=== PATIENT | male | born 1945 | race Hispanic/Latino ===

== ENCOUNTER 2017-03-26 06:35 | Inpatient (IN) | payer OTHER, MEDICARE ==
[~2017-03-26] VITALS: Ht 180.3 cm; Wt 90.7 kg
[~2017-03-26 06:35] MED LIST: ASPI-1005 PO; ATOR40TA69 PO; CLOP75TA14 PO; FURO20TA6 PO; GLIP5TAB11 PO; GLYB-226 PO; LEVO100T12 PO; LISI2.5T2 PO; METF500T6 PO; METO25TA6 PO; NIAC500T76 PO; PRAS10TA6 PO; SIMV80TA2 PO; SPIR25TA PO
[2017-03-26] MEDS ORDERED: FUROSEMIDE 10 MG/ML 4ML VIAL ONE (06:37)
[2017-03-26] MEDS ORDERED: NITROGLYCERIN 0.4 MG SL TAB SL ONE (06:38)
[2017-03-26] MEDS ORDERED: IPRATROPIUM/ALBUTEROL SULFATE 3 ML SOLUTION IH ONE ×4 (06:44→23:08)
[2017-03-26] MEDS ORDERED: METOPROLOL TARTRATE 1 MG/ML 5ML VIAL IV ONE (06:49)
[2017-03-26 06:52] LABS: BASOPHILS % (AUTO) 0.7 % (0.0-5.0); HEMATOCRIT 44.5 % (42-54); LYMPHOCYTES % (AUTO) 52.4 % (21.0-51.0); MEAN CORPUSCULAR HEMOGLOBIN 32.7 pg (27.0-33.0); MEAN CORPUSCULAR HGB CONC 32.7 g/dL (32.0-36.0); MONOCYTES % (AUTO) 7.1 % (3.0-13.0); NEUTROPHILS % (AUTO) 32.8 % (40.0-77.0); PLATELET COUNT (AUTO) 260 K/uL (130-400); RED BLOOD CELL COUNT(AUTO) 4.45 MIL/uL (4.50-6.20); WHITE BLOOD COUNT (AUTO) 20.4 K/uL (4.8-10.8)
[2017-03-26] MEDS ORDERED: ASPIRIN 325 MG TABLET ONE (06:58)
[2017-03-26 07:04] LABS: CREATININE 1.4 mg/dL (0.5-1.5); POTASSIUM 4.5 mmol/L (3.5-5.1)
[2017-03-26 07:06] LABS: INR 0.97 (0.85-1.15); PARTIAL THROMBOPLASTIN TIME 26.2 SEC (26.3-35.5); PROTHROMBIN TIME 10.2 SEC (9.6-11.6)
[2017-03-26 07:22] LABS: ALBUMIN 3.7 g/dL (3.5-5.0); BILIRUBIN,TOTAL 0.5 mg/dL (0.2-1.0); TOTAL PROTEIN, SERUM 7.6 g/dL (6.0-8.3)
[2017-03-26 07:23] LABS: B-TYPE NATRIURETIC PEPTIDE 461 pg/mL (0-100)
[2017-03-26] MEDS ORDERED: CEFTRIAXONE SODIUM 1 GM ONE (07:38)
[2017-03-26] MEDS ORDERED: SODIUM CHLORIDE 0.9% 1000ML 1,000 ML IV ONE (08:53)
[2017-03-26] MEDS ORDERED: LACTULOSE 20 GM/30 ML UDCUP PO PRN (09:00)
[2017-03-26] MEDS: AZITHROMYCIN 500MG+NS 250ML 250 ML IV SCH (09:00)
[2017-03-26] MEDS ORDERED: ONDANSETRON HCL 4 MG/2 ML VIAL IV PRN (09:00)
[2017-03-26] MEDS ORDERED: GUAIFENESIN-DM 200/20 MG 10 ML PO PRN (09:00)
[2017-03-26] MEDS ORDERED: ACETAMINOPHEN 325 MG TAB PO PRN ×2 (09:00)
[2017-03-26] MEDS ORDERED: CEFTRIAXONE 1GM/D5W 50ML 50 ML IV SCH (09:00)
[2017-03-26] MEDS ORDERED: MAG HYDROX/AL HYDROX/SIMETH ES 30 ML SUSP UDCUP PO PRN (09:00)
[2017-03-26] MEDS ORDERED: PANTOPRAZOLE 40 MG/VIAL IVP SCH (09:00)
[2017-03-26 09:52] LABS: APPEARANCE,URINE Clear (CLEAR); BILIRUBIN,URINE Negative (NEGATIVE); COLOR,URINE Yellow (YELLOW); GLUCOSE, URINE (UA) Negative (NEGATIVE); KETONES,URINE Negative (NEGATIVE); LEUKOCYTE ESTERASE ,URINE Negative (NEGATIVE); NITRATE,URINE Negative (NEGATIVE); OCCULT BLOOD,URINE Negative (NEGATIVE); PROTEIN,URINE POS 1+ (NEGATIVE); UROBILINOGEN,URINE 0.2 mg/dL (0.2-1.0)
[2017-03-26 09:55] LABS: BACTERIA,URINE Rare /HPF (None Seen); RBC,URINE 0-1 /HPF (0-1); SQUAMOUS EPITHELIAL CELL,UR Rare /LPF (0-2); WBC,URINE 0-1 /HPF (0-1)
[2017-03-26] MEDS ORDERED: AZITHROMYCIN 500MG+NS 250ML 250 ML IV ONE (10:17)
[2017-03-26] MEDS ORDERED: FUROSEMIDE 10 MG/ML 2ML VIAL IV SCH (11:00)
[2017-03-26] MEDS: IPRATROPIUM/ALBUTEROL SULFATE 3 ML SOLUTION IH SCH ×2 (11:39→18:00)
[2017-03-26] MEDS ORDERED: FUROSEMIDE 10 MG/ML 2ML VIAL ONE (19:11)
[2017-03-26] MEDS ORDERED: ACETAMINOPHEN 325 MG TAB ONE (22:42)
[2017-03-27] VITALS (7 sets, daily range): BP systolic 101–139; BP diastolic 53–66
[2017-03-27] MEDS ORDERED: MORPHINE SULFATE 2 MG/ML 1ML SYG ONE (02:09)
[2017-03-27] MEDS: MORPHINE SULFATE 2 MG/ML 1ML SYG IVP PRN ×2 (02:17→11:50)
[2017-03-27 03:53] LABS: HEMATOCRIT 34.7 % (42-54); MEAN CORPUSCULAR HEMOGLOBIN 33.5 pg (27.0-33.0); MEAN CORPUSCULAR HGB CONC 33.9 g/dL (32.0-36.0); MEAN CORPUSCULAR VOLUME 98.7 fL (79-99); NUCLEATED RED BLOOD CELLS 0.1 % (0.0-0.19); PLATELET COUNT (AUTO) 188 K/uL (130-400); RED BLOOD CELL COUNT(AUTO) 3.52 MIL/uL (4.50-6.20); RED CELL DISTRIBUTION WIDTH 14.4 % (11.0-15.5); WHITE BLOOD COUNT (AUTO) 10.5 K/uL (4.8-10.8)
[2017-03-27 03:59] LABS: CREATININE 1.3 mg/dL (0.5-1.5); POTASSIUM 3.7 mmol/L (3.5-5.1)
[2017-03-27 04:05] LABS: B-TYPE NATRIURETIC PEPTIDE 339 pg/mL (0-100)
[2017-03-27] MEDS: INSULIN HUMULIN R 100 UNIT/ML 3ML SQ SCH ×4 (06:12→21:41)
[2017-03-27] MEDS: IPRATROPIUM/ALBUTEROL SULFATE 3 ML SOLUTION IH SCH ×4 (06:19→18:12)
[2017-03-27] MEDS: CEFTRIAXONE SODIUM 1 GM IVP SCH (08:33)
[2017-03-27] MEDS ORDERED: MORPHINE SULFATE 4 MG/1ML SYG IVP PRN (10:00)
[2017-03-27] MEDS ORDERED: KETOROLAC TROMETHAMINE 15MG/ML IV PRN (10:00)
[2017-03-27] MEDS ORDERED: MORPHINE SULFATE 2 MG/ML 1ML SYG IVP PRN (10:00)
[2017-03-27] MEDS: PREGABALIN 75 MG CAPSULE PO SCH ×2 (11:49→21:39)
[2017-03-27] MEDS: AZITHROMYCIN 500MG+NS 250ML 250 ML IV SCH (11:50)
[2017-03-27] MEDS: FUROSEMIDE 10 MG/ML 4ML VIAL IV SCH (19:39)
[2017-03-27] MEDS: MUPIROCIN OINTMENT 22 GM TUBE TP SCH (21:34)
[2017-03-27] MEDS: LIDOCAINE HCL 5% OINT 36GM TUBE TP SCH (21:35)
[2017-03-27] MEDS: METOPROLOL TARTRATE 25 MG TAB PO SCH (21:39)
[2017-03-27] MEDS: ATORVASTATIN CALCIUM 40 MG TABLET PO SCH (21:39)
[2017-03-27] MEDS: FAMOTIDINE 20MG TAB 20 MG TAB PO SCH (21:39)
[2017-03-27] MEDS: IPRATROPIUM 0.5 MG/2.5 ML INH IH SCH (23:46)
[2017-03-28] MEDS: FUROSEMIDE 10 MG/ML 4ML VIAL IV SCH ×2 (03:01→09:28)
[2017-03-28 04:03] VITALS: BP 122/58
[2017-03-28 04:49] LABS: HEMATOCRIT 36.9 % (42-54); MEAN CORPUSCULAR HEMOGLOBIN 32.8 pg (27.0-33.0); MEAN CORPUSCULAR HGB CONC 33.8 g/dL (32.0-36.0); MEAN CORPUSCULAR VOLUME 96.8 fL (79-99); PLATELET COUNT (AUTO) 209 K/uL (130-400); RED BLOOD CELL COUNT(AUTO) 3.81 MIL/uL (4.50-6.20); RED CELL DISTRIBUTION WIDTH 14.4 % (11.0-15.5); WHITE BLOOD COUNT (AUTO) 9.4 K/uL (4.8-10.8)
[2017-03-28 05:04] LABS: B-TYPE NATRIURETIC PEPTIDE 342 pg/mL (0-100); CREATININE 1.3 mg/dL (0.5-1.5)
[2017-03-28 05:21] LABS: BAND NEUTROPHILS % (MANUAL) 9 % (0-2); EOSINOPHILS % (MANUAL) 4 % (1-6); LYMPHOCYTES % (MANUAL) 40 % (22-44); MONOCYTES % (MANUAL) 4 % (2-9); SEGMENTED NEUTROPHILS % 43 % (40-70)
[2017-03-28 05:22] LABS: MAN.DIFF COMMENT-IMPRESSION MANUAL DIFFERENTIAL; PLATELET MORPHOLOGY COMMENT ADEQUATE
[2017-03-28] MEDS: LEVOTHYROXINE 100 MCG TABLET PO SCH (06:07)
[2017-03-28] MEDS: INSULIN HUMULIN R 100 UNIT/ML 3ML SQ SCH ×4 (06:08→21:00)
[2017-03-28] MEDS: IPRATROPIUM 0.5 MG/2.5 ML INH IH SCH ×3 (06:20→19:29)
[2017-03-28 07:50] VITALS: BP 116/63
[2017-03-28] MEDS ORDERED: FUROSEMIDE 40 MG TABLET PO SCH (09:00)
[2017-03-28] MEDS ORDERED: LEVOFLOXACIN 500 MG/D5W 100 ML 100 ML IV SCH (09:00)
[2017-03-28] MEDS: CLOPIDOGREL BISULFATE 75 MG TAB PO SCH (09:27)
[2017-03-28] MEDS: SPIRONOLACTONE 25 MG TAB PO SCH (09:27)
[2017-03-28] MEDS: ASPIRIN 81MG TAB.CHEW PO SCH (09:27)
[2017-03-28] MEDS: PREGABALIN 75 MG CAPSULE PO SCH ×2 (09:27→23:02)
[2017-03-28] MEDS: METOPROLOL TARTRATE 25 MG TAB PO SCH ×2 (09:27→23:02)
[2017-03-28] MEDS: CEFTRIAXONE SODIUM 1 GM IVP SCH (09:28)
[2017-03-28] MEDS: LISINOPRIL 2.5 MG TABLET PO SCH (09:28)
[2017-03-28] MEDS: ENOXAPARIN SODIUM 30 MG/0.3 ML SQ SCH (09:29)
[2017-03-28 11:45] VITALS: BP 96/53
[2017-03-28] MEDS: LIDOCAINE HCL 5% OINT 36GM TUBE TP SCH (11:47)
[2017-03-28] MEDS: MUPIROCIN OINTMENT 22 GM TUBE TP SCH (11:47)
[2017-03-28 16:12] VITALS: BP 99/53
[2017-03-28] MEDS: FUROSEMIDE 40 MG TABLET PO SCH (16:57)
[2017-03-28 19:41] VITALS: BP 101/54
[2017-03-28] MEDS: ATORVASTATIN CALCIUM 40 MG TABLET PO SCH (23:01)
[2017-03-28] MEDS: FAMOTIDINE 20MG TAB 20 MG TAB PO SCH (23:02)
[2017-03-28 23:43] VITALS: BP 100/49
[2017-03-29] MEDS: IPRATROPIUM 0.5 MG/2.5 ML INH IH SCH ×4 (00:04→19:08)
[2017-03-29] MEDS: MUPIROCIN OINTMENT 22 GM TUBE TP SCH ×2 (00:16→11:23)
[2017-03-29] MEDS: LIDOCAINE HCL 5% OINT 36GM TUBE TP SCH ×2 (00:17→11:23)
[2017-03-29 03:46] VITALS: BP 100/54
[2017-03-29 04:41] LABS: HEMATOCRIT 36.1 % (42-54); MEAN CORPUSCULAR HEMOGLOBIN 33.3 pg (27.0-33.0); MEAN CORPUSCULAR VOLUME 98.1 fL (79-99); PLATELET COUNT (AUTO) 213 K/uL (130-400); RED BLOOD CELL COUNT(AUTO) 3.68 MIL/uL (4.50-6.20); RED CELL DISTRIBUTION WIDTH 14.2 % (11.0-15.5); WHITE BLOOD COUNT (AUTO) 10.1 K/uL (4.8-10.8)
[2017-03-29 04:43] LABS: CREATININE 1.5 mg/dL (0.5-1.5); POTASSIUM 4.4 mmol/L (3.5-5.1)
[2017-03-29] MEDS: INSULIN HUMULIN R 100 UNIT/ML 3ML SQ SCH ×4 (06:24→21:00)
[2017-03-29] MEDS: LEVOTHYROXINE 100 MCG TABLET PO SCH (06:45)
[2017-03-29 07:47] VITALS: BP 115/60
[2017-03-29] MEDS: METOPROLOL TARTRATE 25 MG TAB PO SCH ×2 (09:00→11:22)
[2017-03-29] MEDS: FUROSEMIDE 40 MG TABLET PO SCH ×2 (09:57→16:57)
[2017-03-29] MEDS: SPIRONOLACTONE 25 MG TAB PO SCH (09:57)
[2017-03-29] MEDS: LISINOPRIL 2.5 MG TABLET PO SCH (09:57)
[2017-03-29] MEDS: PREGABALIN 75 MG CAPSULE PO SCH ×2 (09:57→22:43)
[2017-03-29] MEDS: CLOPIDOGREL BISULFATE 75 MG TAB PO SCH (09:57)
[2017-03-29] MEDS: ASPIRIN 81MG TAB.CHEW PO SCH (09:57)
[2017-03-29] MEDS: ENOXAPARIN SODIUM 30 MG/0.3 ML SQ SCH (09:58)
[2017-03-29] MEDS: CEFTRIAXONE SODIUM 1 GM IVP SCH (09:58)
[2017-03-29 11:20] VITALS: BP 157/66
[2017-03-29 16:33] VITALS: BP 111/50
[2017-03-29 19:35] VITALS: BP 98/51
[2017-03-29] MEDS: ATORVASTATIN CALCIUM 40 MG TABLET PO SCH (22:43)
[2017-03-29] MEDS: FAMOTIDINE 20MG TAB 20 MG TAB PO SCH (22:43)
[2017-03-30] MEDS: IPRATROPIUM 0.5 MG/2.5 ML INH IH SCH ×3 (00:25→11:13)
[2017-03-30 00:42] VITALS: BP 109/49
[2017-03-30] MEDS: MUPIROCIN OINTMENT 22 GM TUBE TP SCH ×2 (01:16→09:01)
[2017-03-30] MEDS: LIDOCAINE HCL 5% OINT 36GM TUBE TP SCH ×2 (01:17→09:01)
[2017-03-30] MEDS: METOPROLOL TARTRATE 25 MG TAB PO SCH ×2 (01:18→08:59)
[2017-03-30 04:00] VITALS: BP 97/50
[2017-03-30 05:40] LABS: CREATININE 1.5 mg/dL (0.5-1.5); POTASSIUM 3.7 mmol/L (3.5-5.1)
[2017-03-30] MEDS: LEVOTHYROXINE 100 MCG TABLET PO SCH (06:46)
[2017-03-30] MEDS: INSULIN HUMULIN R 100 UNIT/ML 3ML SQ SCH (07:30)
[2017-03-30 07:51] VITALS: BP 104/50
[2017-03-30] MEDS: LISINOPRIL 2.5 MG TABLET PO SCH (08:59)
[2017-03-30] MEDS: CLOPIDOGREL BISULFATE 75 MG TAB PO SCH (08:59)
[2017-03-30] MEDS: SPIRONOLACTONE 25 MG TAB PO SCH (08:59)
[2017-03-30] MEDS: FUROSEMIDE 40 MG TABLET PO SCH (09:00)
[2017-03-30] MEDS ORDERED: FURO40TA7 PO (09:00)
[2017-03-30] MEDS: ASPIRIN 81MG TAB.CHEW PO SCH (09:00)
[2017-03-30] MEDS ORDERED: AMOX-426 PO (09:00)
[2017-03-30] MEDS: PREGABALIN 75 MG CAPSULE PO SCH (09:00)
[2017-03-30] MEDS: ENOXAPARIN SODIUM 30 MG/0.3 ML SQ SCH (09:00)
[2017-03-30] MEDS ORDERED: PREG50 PO (09:00)
[2017-03-30] MEDS: CEFTRIAXONE SODIUM 1 GM IVP SCH (09:01)
[2017-03-30 11:22] VITALS: BP 142/57
[2017-04-26] MEDS ORDERED: FURO40TA5 PO (14:30)
[2017-04-26] MEDS ORDERED: PREG50 PO (14:30)
[2017-04-26] MEDS ORDERED: ATOR40TA71 PO (14:30)
[2017-04-26] MEDS ORDERED: ASPI-1197 PO (14:30)
[2017-04-26] MEDS ORDERED: SPIR25TA4 PO (14:30)
[2017-04-26] MEDS ORDERED: CLOP75TA32 PO (14:30)
[2017-04-26] MEDS ORDERED: LISI2.5T2 PO (14:30)
[2017-07-07] MEDS ORDERED: LOSA50TA37 PO (10:13)
[2017-07-07] MEDS ORDERED: ACET1TAB12 PO (10:13)
[2017-07-07] MEDS ORDERED: FAMO20TA8 PO (10:13)
[2017-07-07] MEDS ORDERED: SANTO TP (10:13)
[2017-07-07] MEDS ORDERED: ACET-2247 PO (10:13)
[2017-07-07] MEDS ORDERED: LACT10SO9 PO (10:13)
[2017-07-07] MEDS ORDERED: INSU100V3 SQ (10:15)
[2017-07-11] MEDS ORDERED: SPIR25TA4 PO (10:21)
[2017-08-11] MEDS ORDERED: METOPROLOL PO (07:58)
[2017-08-11] MEDS ORDERED: TYL3 PO (08:49)
== END 2017-03-30 13:39 | disposition home or self-care (01) | DRG 291 ==
LOC: EDH 06:35 → EDHIP 08:59 → 2AH 23:29
PROVIDERS: ADMIT Family Medicine; ATTEND Family Medicine
PROC: 5A09357 Assistance with Respiratory Ventilation, Less than 24 Consecutive Hours, Continuous Positive Airway Pressure (ICD-10-PCS; principal; 2017-03-27)
DX: I11.0 Hypertensive heart disease with heart failure (principal); J96.90 Respiratory failure, unspecified, unspecified whether with hypoxia or hypercapnia; L03.119 Cellulitis of unspecified part of limb; J98.11 Atelectasis; E11.51 Type 2 diabetes mellitus with diabetic peripheral angiopathy without gangrene; I50.43 Acute on chronic combined systolic (congestive) and diastolic (congestive) heart failure; E03.9 Hypothyroidism, unspecified; E78.5 Hyperlipidemia, unspecified; J44.9 Chronic obstructive pulmonary disease, unspecified; I25.5 Ischemic cardiomyopathy; I25.10 Atherosclerotic heart disease of native coronary artery without angina pectoris; L97.529 Non-pressure chronic ulcer of other part of left foot with unspecified severity; E11.621 Type 2 diabetes mellitus with foot ulcer; F17.210 Nicotine dependence, cigarettes, uncomplicated; E11.40 Type 2 diabetes mellitus with diabetic neuropathy, unspecified; I25.2 Old myocardial infarction; Z79.84 Long term (current) use of oral hypoglycemic drugs; Z95.1 Presence of aortocoronary bypass graft; Z79.899 Other long term (current) drug therapy
CPT/HCPCS: 36415; 71045; 71046; 71250; 73630; 80048; 80053; 81001; 82550; 82553; 82948; 83605; 83880; 84484; 85025; 85027; 85610; 85730; 87040; 87070; 87804; 93005; 93306; 94640; 94660; 94664; 99291; A4218; C9113; J0456; J0696; J1650; J1815; J1885; J1940; J1956; J3490; J7030

== ENCOUNTER → 2017-04-20 | Outpatient (CLI) | payer OTHER, MEDICARE ==
[~2017-04-20] MED LIST changes: +ACET-2247 PO; +ACET1TAB12 PO; +AMIO400T4 PO; +AMOX-426 PO; +ASPI-1197 PO; +ATOR40TA71 PO; +CLOP75TA32 PO; +FAMO20TA8 PO; +FURO40TA5 PO; +FURO40TA7 PO; -GLYB-226 PO; +HYDR-4060 PO; +INSU100V3 SQ; +LACT10SO9 PO; +LOSA50TA37 PO; +METOPROLOL PO; -NIAC500T76 PO; -PRAS10TA6 PO; +PREG50 PO; +SANTO TP; +SANTYL AUTOSUB TO MEDIHONEY FOR INPT TP ONE; -SIMV80TA2 PO; +SPIR25TA4 PO; +TYL3 PO
[2017-04-20 15:21] VITALS: BP 119/61
== END | disposition home or self-care (01) ==
LOC: WHH 09:10
PROVIDERS: ATTEND Podiatrist Foot & Ankle Surgery
DX: I70.235 Atherosclerosis of native arteries of right leg with ulceration of other part of foot (principal); E11.621 Type 2 diabetes mellitus with foot ulcer; L97.511 Non-pressure chronic ulcer of other part of right foot limited to breakdown of skin; E11.51 Type 2 diabetes mellitus with diabetic peripheral angiopathy without gangrene; I25.10 Atherosclerotic heart disease of native coronary artery without angina pectoris; J44.9 Chronic obstructive pulmonary disease, unspecified; E78.5 Hyperlipidemia, unspecified; I11.0 Hypertensive heart disease with heart failure; I50.43 Acute on chronic combined systolic (congestive) and diastolic (congestive) heart failure; E03.9 Hypothyroidism, unspecified; E11.40 Type 2 diabetes mellitus with diabetic neuropathy, unspecified; I25.2 Old myocardial infarction; F17.210 Nicotine dependence, cigarettes, uncomplicated; Z95.1 Presence of aortocoronary bypass graft
CPT/HCPCS: A4450; G0463; L3260

== ENCOUNTER 2017-04-27 06:55 | Day surgery (SDC) | payer OTHER, MEDICARE ==
[2017-04-26 14:06] VITALS: BP 98/50
[2017-04-26 14:17] LABS: BASOPHILS % (AUTO) 0.5 % (0.0-5.0); EOSINOPHILS % (AUTO) 6.6 % (0.0-8.0); HEMATOCRIT 37.7 % (42-54); LYMPHOCYTES % (AUTO) 26.9 % (21.0-51.0); MEAN CORPUSCULAR HEMOGLOBIN 33.6 pg (27.0-33.0); MEAN CORPUSCULAR HGB CONC 34.5 g/dL (32.0-36.0); MEAN CORPUSCULAR VOLUME 97.4 fL (79-99); MONOCYTES % (AUTO) 9.7 % (3.0-13.0); NEUTROPHILS % (AUTO) 56.3 % (40.0-77.0); PLATELET COUNT (AUTO) 216 K/uL (130-400); RED BLOOD CELL COUNT(AUTO) 3.87 MIL/uL (4.50-6.20); RED CELL DISTRIBUTION WIDTH 13.8 % (11.0-15.5); WHITE BLOOD COUNT (AUTO) 10.2 K/uL (4.8-10.8)
[2017-04-26 14:26] LABS: INR 0.99 (0.85-1.15); PARTIAL THROMBOPLASTIN TIME 26.5 SEC (26.3-35.5); PROTHROMBIN TIME 10.4 SEC (9.6-11.6)
[2017-04-26 14:27] LABS: CREATININE 1.3 mg/dL (0.5-1.5); POTASSIUM 4.4 mmol/L (3.5-5.1)
[~2017-04-27] VITALS: Ht 174 cm; Wt 87.6 kg
[2017-04-27 06:55] VITALS: BP 93/69
[~2017-04-27 06:55] MED LIST changes: -ACET-2247 PO; -ACET1TAB12 PO; -AMIO400T4 PO; -AMOX-426 PO; -ASPI-1005 PO; -ATOR40TA69 PO; +CEFAZOLIN SODIUM 1 GM VIAL IVP SCH; -CLOP75TA14 PO; -FAMO20TA8 PO; -FURO20TA6 PO; -FURO40TA7 PO; -GLIP5TAB11 PO; -HYDR-4060 PO; -INSU100V3 SQ; -LACT10SO9 PO; -LEVO100T12 PO; -LOSA50TA37 PO; -METF500T6 PO; -METOPROLOL PO; -SANTO TP; -SANTYL AUTOSUB TO MEDIHONEY FOR INPT TP ONE; +SODIUM CHLORIDE 0.9% 500ML 500 ML IV SCH; -SPIR25TA PO; -TYL3 PO; +WATER FOR INJECTION,STERILE 20 ML VIAL IJ SCH
[2017-04-27] MEDS ORDERED: SODIUM CHLORIDE 0.9% 1000ML 1,000 ML IV ONE (07:53)
[2017-04-27] MEDS ORDERED: METF500T6 PO (08:00)
[2017-04-27] MEDS ORDERED: ACETAMINOPHEN-CODEINE 300/30MG TAB PO SCH (08:00)
[2017-04-27] MEDS ORDERED: TYL3 PO (09:44)
[2017-07-07] MEDS ORDERED: ACET-2247 PO (10:13)
[2017-07-07] MEDS ORDERED: SANTO TP (10:13)
[2017-07-07] MEDS ORDERED: FAMO20TA8 PO (10:13)
[2017-07-07] MEDS ORDERED: LACT10SO9 PO (10:13)
[2017-07-07] MEDS ORDERED: ACET1TAB12 PO (10:13)
[2017-07-07] MEDS ORDERED: LOSA50TA37 PO (10:13)
[2017-07-07] MEDS ORDERED: INSU100V3 SQ (10:15)
[2017-07-11] MEDS ORDERED: SPIR25TA4 PO (10:21)
[2017-08-11] MEDS ORDERED: METOPROLOL PO (07:58)
[2017-08-11] MEDS ORDERED: TYL3 PO (08:49)
== END 2017-04-27 10:40 | disposition home or self-care (01) ==
LOC: DAH 06:55
PROVIDERS: ATTEND Internal Medicine Cardiovascular Disease
DX: I25.5 Ischemic cardiomyopathy (principal); I25.2 Old myocardial infarction; I25.10 Atherosclerotic heart disease of native coronary artery without angina pectoris; I11.0 Hypertensive heart disease with heart failure; I50.22 Chronic systolic (congestive) heart failure; F17.210 Nicotine dependence, cigarettes, uncomplicated; Z79.82 Long term (current) use of aspirin; Z79.899 Other long term (current) drug therapy; Z79.84 Long term (current) use of oral hypoglycemic drugs; Z53.8 Procedure and treatment not carried out for other reasons; Z95.5 Presence of coronary angioplasty implant and graft
CPT/HCPCS: 36415; 80048; 82948; 85025; 85610; 85730; 93005; J7030

== ENCOUNTER → 2017-05-04 | Outpatient (CLI) | payer OTHER, MEDICARE ==
[~2017-05-04] MED LIST changes: +ACET-2247 PO; +ACET1TAB12 PO; +AMIO400T4 PO; +AMOX-426 PO; +ASPI-1005 PO; +ATOR40TA69 PO; -CEFAZOLIN SODIUM 1 GM VIAL IVP SCH; +FAMO20TA8 PO; +FURO20TA6 PO; +HYDR-4060 PO; +INSU100V3 SQ; +LACT10SO9 PO; +LOSA50TA37 PO; +METF500T6 PO; +METOPROLOL PO; +SANTO TP; -SODIUM CHLORIDE 0.9% 500ML 500 ML IV SCH; +TYL3 PO; -WATER FOR INJECTION,STERILE 20 ML VIAL IJ SCH
[2017-05-04 13:52] VITALS: BP 99/56
== END | disposition home or self-care (01) ==
LOC: WHH 10:30
PROVIDERS: ATTEND Podiatrist Foot & Ankle Surgery
DX: I70.235 Atherosclerosis of native arteries of right leg with ulceration of other part of foot (principal); E11.621 Type 2 diabetes mellitus with foot ulcer; L97.511 Non-pressure chronic ulcer of other part of right foot limited to breakdown of skin; E11.51 Type 2 diabetes mellitus with diabetic peripheral angiopathy without gangrene; I25.10 Atherosclerotic heart disease of native coronary artery without angina pectoris; J44.9 Chronic obstructive pulmonary disease, unspecified; E78.5 Hyperlipidemia, unspecified; I11.0 Hypertensive heart disease with heart failure; I50.43 Acute on chronic combined systolic (congestive) and diastolic (congestive) heart failure; E03.9 Hypothyroidism, unspecified; E11.40 Type 2 diabetes mellitus with diabetic neuropathy, unspecified; I25.2 Old myocardial infarction; F17.210 Nicotine dependence, cigarettes, uncomplicated; Z95.1 Presence of aortocoronary bypass graft
CPT/HCPCS: 82948; A6209; G0463

== ENCOUNTER → 2017-05-05 | Outpatient (CLI) | payer OTHER, MEDICARE | END | disposition home or self-care (01) | LOC: SHCH 13:08 | PROVIDERS: ATTEND Internal Medicine Cardiovascular Disease | DX: I73.9 Peripheral vascular disease, unspecified (principal) | CPT/HCPCS: 93925 ==

== ENCOUNTER → 2017-05-17 | Outpatient (CLI) | payer OTHER, MEDICARE ==
[~2017-05-17] MED LIST changes: +IOPAMIDOL-370 75 ML VIAL IV ONE; +ISOVUE-370 50ML VIAL IV ONE
== END | disposition home or self-care (01) ==
LOC: OIH 08:26
PROVIDERS: ATTEND Internal Medicine Cardiovascular Disease
DX: I70.203 Unspecified atherosclerosis of native arteries of extremities, bilateral legs (principal)
CPT/HCPCS: 75635; Q9967 ×2

== ENCOUNTER → 2017-05-18 | Outpatient (CLI) | payer OTHER, MEDICARE ==
[~2017-05-18] MED LIST changes: -IOPAMIDOL-370 75 ML VIAL IV ONE; -ISOVUE-370 50ML VIAL IV ONE
[2017-05-18 13:31] VITALS: BP 125/54
== END | disposition home or self-care (01) ==
LOC: WHH 10:15
PROVIDERS: ATTEND Podiatrist Foot & Ankle Surgery
DX: I70.235 Atherosclerosis of native arteries of right leg with ulceration of other part of foot (principal); E11.621 Type 2 diabetes mellitus with foot ulcer; L97.511 Non-pressure chronic ulcer of other part of right foot limited to breakdown of skin; E11.51 Type 2 diabetes mellitus with diabetic peripheral angiopathy without gangrene; I25.10 Atherosclerotic heart disease of native coronary artery without angina pectoris; J44.9 Chronic obstructive pulmonary disease, unspecified; E78.5 Hyperlipidemia, unspecified; I11.0 Hypertensive heart disease with heart failure; I50.43 Acute on chronic combined systolic (congestive) and diastolic (congestive) heart failure; E03.9 Hypothyroidism, unspecified; E11.40 Type 2 diabetes mellitus with diabetic neuropathy, unspecified; I25.2 Old myocardial infarction; F17.210 Nicotine dependence, cigarettes, uncomplicated; Z95.1 Presence of aortocoronary bypass graft; Z79.82 Long term (current) use of aspirin; Z95.5 Presence of coronary angioplasty implant and graft
CPT/HCPCS: G0463

== ENCOUNTER 2017-05-26 16:30 | Inpatient (IN) | payer OTHER, MEDICARE ==
[~2017-05-26] VITALS: Ht 177.8 cm; Wt 86.2 kg
[~2017-05-26 16:30] MED LIST changes: -ACET-2247 PO; -ACET1TAB12 PO; -AMIO400T4 PO; -AMOX-426 PO; -ASPI-1005 PO; -ATOR40TA69 PO; -FAMO20TA8 PO; -FURO20TA6 PO; -HYDR-4060 PO; -INSU100V3 SQ; -LACT10SO9 PO; -LOSA50TA37 PO; -METOPROLOL PO; -SANTO TP
[2017-05-26 17:04] LABS: BASOPHILS % (AUTO) 0.4 % (0.0-5.0); EOSINOPHILS % (AUTO) 5.7 % (0.0-8.0); HEMATOCRIT 36.2 % (42-54); MEAN CORPUSCULAR HGB CONC 34.6 g/dL (32.0-36.0); MEAN CORPUSCULAR VOLUME 95.3 fL (79-99); MONOCYTES % (AUTO) 9.4 % (3.0-13.0); NEUTROPHILS % (AUTO) 61.5 % (40.0-77.0); PLATELET COUNT (AUTO) 314 K/uL (130-400); RED CELL DISTRIBUTION WIDTH 13.8 % (11.0-15.5); WHITE BLOOD COUNT (AUTO) 10.2 K/uL (4.8-10.8)
[2017-05-26] MEDS ORDERED: MORPHINE SULFATE 2 MG/ML 1ML SYG ONE (17:16)
[2017-05-26 17:17] LABS: CREATININE 1.2 mg/dL (0.5-1.5); POTASSIUM 3.8 mmol/L (3.5-5.1)
[2017-05-26] MEDS ORDERED: ONDANSETRON HCL MDV 20ML 2 MG/ML VIAL ONE (17:17)
[2017-05-26 17:22] LABS: ALBUMIN 2.7 g/dL (3.5-5.0); BILIRUBIN,TOTAL 0.3 mg/dL (0.2-1.0); TOTAL PROTEIN, SERUM 7.6 g/dL (6.0-8.3)
[2017-05-26] MEDS ORDERED: POTASSIUM CHLORIDE 20MEQ/100ML 100 ML IV PRN (23:30)
[2017-05-26] MEDS ORDERED: HYDRALAZINE HCL 20 MG/ML VIAL IV PRN (23:30)
[2017-05-26] MEDS ORDERED: POTASSIUM CHLORIDE 20 MEQ ERTAB PO PRN (23:30)
[2017-05-26] MEDS ORDERED: LIDOCAINE HCL-MPF 1% 2ML VIAL IVP PRN (23:30)
[2017-05-26] MEDS ORDERED: ONDANSETRON HCL 4 MG/2 ML VIAL IV PRN (23:30)
[2017-05-26] MEDS ORDERED: POTASSIUM CHLORIDE 10% ELIXIR 20 MEQ/15 ML UDCUP PO PRN (23:30)
[2017-05-26 23:47] LABS: PARTIAL THROMBOPLASTIN TIME 29.3 SEC (26.3-35.5); PROTHROMBIN TIME 10.5 SEC (9.6-11.6)
[2017-05-26 23:55] LABS: BASOPHILS % (AUTO) 0.6 % (0.0-5.0); EOSINOPHILS % (AUTO) 8.7 % (0.0-8.0); LYMPHOCYTES % (AUTO) 25.8 % (21.0-51.0); MEAN CORPUSCULAR HEMOGLOBIN 31.9 pg (27.0-33.0); MEAN CORPUSCULAR HGB CONC 34.1 g/dL (32.0-36.0); MEAN CORPUSCULAR VOLUME 93.3 fL (79-99); MONOCYTES % (AUTO) 8.4 % (3.0-13.0); NEUTROPHILS % (AUTO) 56.5 % (40.0-77.0); PLATELET COUNT (AUTO) 287 K/uL (130-400); RED BLOOD CELL COUNT(AUTO) 3.86 MIL/uL (4.50-6.20); RED CELL DISTRIBUTION WIDTH 13.4 % (11.0-15.5); WHITE BLOOD COUNT (AUTO) 7.8 K/uL (4.8-10.8)
[2017-05-27] VITALS (13 sets, daily range): BP systolic 96–135; BP diastolic 45–78
[2017-05-27] MEDS: MORPHINE SULFATE 2 MG/ML 1ML SYG IV PRN ×4 (00:30→19:32)
[2017-05-27] MEDS ORDERED: HEPARIN 25000 UNITS/250 ML D5W 250 ML IV SCH (01:00)
[2017-05-27] MEDS ORDERED: HEPARIN SODIUM 5000UNIT/ML 1ML VIAL ONE (01:41)
[2017-05-27] MEDS ORDERED: HEPARIN 25000 UNITS/250 ML D5W 250 ML IV ONE (01:42)
[2017-05-27 03:52] LABS: HEMATOCRIT 35.7 % (42-54); MEAN CORPUSCULAR HEMOGLOBIN 32.5 pg (27.0-33.0); MEAN CORPUSCULAR HGB CONC 34.4 g/dL (32.0-36.0); MEAN CORPUSCULAR VOLUME 94.3 fL (79-99); PLATELET COUNT (AUTO) 292 K/uL (130-400); RED BLOOD CELL COUNT(AUTO) 3.79 MIL/uL (4.50-6.20); RED CELL DISTRIBUTION WIDTH 13.8 % (11.0-15.5); WHITE BLOOD COUNT (AUTO) 9.4 K/uL (4.8-10.8)
[2017-05-27 03:59] LABS: CREATININE 1.2 mg/dL (0.5-1.5); POTASSIUM 4.1 mmol/L (3.5-5.1)
[2017-05-27] MEDS ORDERED: GUAIFENESIN-DM 200/20 MG 10 ML PO PRN (08:00)
[2017-05-27] MEDS ORDERED: HYDRALAZINE HCL 20 MG/ML VIAL IV PRN ×2 (08:00→15:30)
[2017-05-27] MEDS ORDERED: POTASSIUM CHLORIDE 20MEQ/100ML 100 ML IV PRN (08:00)
[2017-05-27] MEDS ORDERED: MORPHINE SULFATE 4 MG/1ML SYG IV PRN (08:00)
[2017-05-27] MEDS ORDERED: LIDOCAINE HCL-MPF 1% 2ML VIAL IVP PRN (08:00)
[2017-05-27] MEDS ORDERED: NITROGLYCERIN 0.4 MG SL TAB SL PRN (08:00)
[2017-05-27] MEDS ORDERED: LACTULOSE 20 GM/30 ML UDCUP PO PRN (08:00)
[2017-05-27] MEDS ORDERED: MORPHINE SULFATE 2 MG/ML 1ML SYG IV PRN (08:00)
[2017-05-27] MEDS ORDERED: ACETAMINOPHEN-CODEINE 300/30MG TAB PO PRN ×3 (08:00→15:30)
[2017-05-27] MEDS ORDERED: POTASSIUM CHLORIDE 10% ELIXIR 20 MEQ/15 ML UDCUP PO PRN (08:00)
[2017-05-27] MEDS ORDERED: ONDANSETRON HCL 4 MG/2 ML VIAL IV PRN (08:00)
[2017-05-27] MEDS: CLOPIDOGREL BISULFATE 75 MG TAB PO SCH (09:10)
[2017-05-27] MEDS: PREGABALIN 25 MG CAP PO SCH ×2 (09:10→20:03)
[2017-05-27] MEDS: FAMOTIDINE/PF 20 MG/2 ML VIAL IV SCH ×2 (09:10→20:02)
[2017-05-27] MEDS: SPIRONOLACTONE 25 MG TAB PO SCH (09:10)
[2017-05-27] MEDS: METOPROLOL TARTRATE 25 MG TAB PO SCH ×2 (09:10→20:02)
[2017-05-27] MEDS: ASPIRIN 81MG TAB.CHEW PO SCH (09:11)
[2017-05-27] MEDS: LISINOPRIL 2.5 MG TABLET PO SCH (09:11)
[2017-05-27] MEDS: FUROSEMIDE 40 MG TABLET PO SCH ×2 (09:11→20:02)
[2017-05-27] MEDS: ATORVASTATIN CALCIUM 40 MG TABLET PO SCH (09:11)
[2017-05-27] MEDS: LEVOFLOXACIN 500 MG/D5W 100 ML 100 ML IV SCH (09:12)
[2017-05-27] MEDS: INSULIN HUMULIN R 100 UNIT/ML 3ML SQ SCH ×3 (11:30→21:32)
[2017-05-27] MEDS: DOXYCYCLINE 100MG+NS 250ML 250 ML IV SCH ×2 (11:38→20:02)
[2017-05-27] MEDS ORDERED: ISOVUE-300 100 ML VIAL IV ONE ×3 (13:40→15:08)
[2017-05-27] MEDS ORDERED: HEPARIN SODIUM 1000UNIT/ML 10ML VIAL ONE (13:40)
[2017-05-27] MEDS ORDERED: LIDOCAINE HCL 2% 20ML ONE (13:41)
[2017-05-27] MEDS ORDERED: MIDAZOLAM HCL 1 MG/ML 2ML VIAL ONE (14:33)
[2017-05-27] MEDS ORDERED: FENTANYL CITRATE PF 50 MCG/1 ML 2ML VIAL ONE (14:33)
[2017-05-27] MEDS ORDERED: SODIUM CHLORIDE 0.9% 1000ML 1,000 ML IV SCH (15:22)
[2017-05-27] MEDS ORDERED: METOPROLOL TARTRATE 1 MG/ML 5ML VIAL IV PRN (15:30)
[2017-05-27] MEDS ORDERED: SODIUM CHLORIDE 0.9% 500ML 500 ML IV ONE (21:18)
[2017-05-27 21:45] LABS: BILIRUBIN,URINE Negative (NEGATIVE); COLOR,URINE Yellow (YELLOW); GLUCOSE, URINE (UA) Negative (NEGATIVE); KETONES,URINE Negative (NEGATIVE); LEUKOCYTE ESTERASE ,URINE Negative (NEGATIVE); NITRATE,URINE Negative (NEGATIVE); OCCULT BLOOD,URINE Negative (NEGATIVE); PROTEIN,URINE Trace (NEGATIVE)
[2017-05-27 21:46] LABS: APPEARANCE,URINE CLEAR (CLEAR)
[2017-05-28 03:07] VITALS: BP 105/52
[2017-05-28 03:59] LABS: HEMATOCRIT 34.5 % (42-54); MEAN CORPUSCULAR HEMOGLOBIN 31.9 pg (27.0-33.0); MEAN CORPUSCULAR HGB CONC 34.1 g/dL (32.0-36.0); MEAN CORPUSCULAR VOLUME 93.5 fL (79-99); PLATELET COUNT (AUTO) 306 K/uL (130-400); RED BLOOD CELL COUNT(AUTO) 3.69 MIL/uL (4.50-6.20); RED CELL DISTRIBUTION WIDTH 13.7 % (11.0-15.5); WHITE BLOOD COUNT (AUTO) 9.6 K/uL (4.8-10.8)
[2017-05-28 04:06] LABS: CREATININE 1.3 mg/dL (0.5-1.5); POTASSIUM 4.2 mmol/L (3.5-5.1)
[2017-05-28 04:17] LABS: INR 1.02 (0.85-1.15); PARTIAL THROMBOPLASTIN TIME 33.1 SEC (26.3-35.5); PROTHROMBIN TIME 10.7 SEC (9.6-11.6)
[2017-05-28] MEDS: INSULIN HUMULIN R 100 UNIT/ML 3ML SQ SCH ×4 (06:35→20:43)
[2017-05-28 08:00] VITALS: BP 109/64
[2017-05-28] MEDS: ASPIRIN 81MG TAB.CHEW PO SCH (08:26)
[2017-05-28] MEDS: FUROSEMIDE 40 MG TABLET PO SCH ×2 (08:26→20:43)
[2017-05-28] MEDS: CLOPIDOGREL BISULFATE 75 MG TAB PO SCH (08:26)
[2017-05-28] MEDS: ATORVASTATIN CALCIUM 40 MG TABLET PO SCH (08:26)
[2017-05-28] MEDS: PREGABALIN 25 MG CAP PO SCH ×3 (08:26→20:42)
[2017-05-28] MEDS: LISINOPRIL 2.5 MG TABLET PO SCH (08:26)
[2017-05-28] MEDS: SPIRONOLACTONE 25 MG TAB PO SCH (08:27)
[2017-05-28] MEDS: DOXYCYCLINE 100MG+NS 250ML 250 ML IV SCH ×2 (08:27→20:41)
[2017-05-28] MEDS: FAMOTIDINE/PF 20 MG/2 ML VIAL IV SCH ×2 (08:27→20:42)
[2017-05-28] MEDS: LEVOFLOXACIN 500 MG/D5W 100 ML 100 ML IV SCH ×2 (10:52→11:52)
[2017-05-28] MEDS: METOPROLOL TARTRATE 25 MG TAB PO SCH ×2 (11:03→20:43)
[2017-05-28] MEDS: ENOXAPARIN SODIUM 30 MG/0.3 ML SQ SCH (11:31)
[2017-05-28 11:44] VITALS: BP 121/54
[2017-05-28 16:00] VITALS: BP 118/63
[2017-05-28] MEDS: ACETAMINOPHEN 325 MG TAB PO PRN ×2 (16:34→23:58)
[2017-05-28 19:21] VITALS: BP 106/53
[2017-05-28] MEDS ORDERED: LORAZEPAM 0.5 MG TABLET PO ONE (21:00)
[2017-05-28 23:05] VITALS: BP 111/60
[2017-05-29 03:47] VITALS: BP 97/53
[2017-05-29] MEDS: INSULIN HUMULIN R 100 UNIT/ML 3ML SQ SCH ×4 (06:02→21:00)
[2017-05-29 07:03] LABS: CREATININE 1.2 mg/dL (0.5-1.5); POTASSIUM 3.8 mmol/L (3.5-5.1)
[2017-05-29 08:00] VITALS: BP 150/61
[2017-05-29] MEDS: DOXYCYCLINE 100MG+NS 250ML 250 ML IV SCH ×2 (09:32→19:53)
[2017-05-29] MEDS: ENOXAPARIN SODIUM 30 MG/0.3 ML SQ SCH (09:37)
[2017-05-29] MEDS: ASPIRIN 81MG TAB.CHEW PO SCH (09:38)
[2017-05-29] MEDS: FUROSEMIDE 40 MG TABLET PO SCH ×2 (09:38→19:54)
[2017-05-29] MEDS: CLOPIDOGREL BISULFATE 75 MG TAB PO SCH (09:38)
[2017-05-29] MEDS: METOPROLOL TARTRATE 25 MG TAB PO SCH ×2 (09:38→19:54)
[2017-05-29] MEDS: PREGABALIN 25 MG CAP PO SCH ×2 (09:38→19:54)
[2017-05-29] MEDS: FAMOTIDINE/PF 20 MG/2 ML VIAL IV SCH ×2 (09:39→19:53)
[2017-05-29] MEDS: LISINOPRIL 2.5 MG TABLET PO SCH (09:39)
[2017-05-29] MEDS: SPIRONOLACTONE 25 MG TAB PO SCH (09:39)
[2017-05-29] MEDS: ATORVASTATIN CALCIUM 40 MG TABLET PO SCH (09:39)
[2017-05-29] MEDS: ACETAMINOPHEN-CODEINE 300/30MG TAB PO PRN ×2 (09:55→17:05)
[2017-05-29 12:02] VITALS: BP 109/58
[2017-05-29] MEDS: LEVOFLOXACIN 500 MG/D5W 100 ML 100 ML IV SCH (14:00)
[2017-05-29 15:56] VITALS: BP 89/50
[2017-05-29] MEDS: ACETAMINOPHEN 325 MG TAB PO PRN (19:54)
[2017-05-29 20:00] VITALS: BP 100/51
[2017-05-29] MEDS: KETOROLAC TROMETHAMINE 15MG/ML IV SCH (22:00)
[2017-05-29] MEDS ORDERED: KETOROLAC TROMETHAMINE 15MG/ML ONE (22:27)
[2017-05-29 23:55] VITALS: BP 101/55
[2017-05-30] VITALS (40 sets, daily range): BP systolic 65–168; BP diastolic 35–97
[2017-05-30] MEDS: INSULIN HUMULIN R 100 UNIT/ML 3ML SQ SCH ×4 (05:53→23:35)
[2017-05-30] MEDS ORDERED: SODIUM CHLORIDE 0.9% 1000ML 1,000 ML IV ONE (06:22)
[2017-05-30] MEDS: METOPROLOL TARTRATE 25 MG TAB PO SCH (06:35)
[2017-05-30] MEDS ORDERED: BUPIVACAINE/PF 0.5% 30ML VIAL ONE (06:37)
[2017-05-30] MEDS ORDERED: LIDOCAINE HCL 1% 20 ML VIAL ONE (06:37)
[2017-05-30 06:52] LABS: CREATININE 1.4 mg/dL (0.5-1.5); POTASSIUM 4.1 mmol/L (3.5-5.1)
[2017-05-30] MEDS ORDERED: MIDAZOLAM HCL 1 MG/ML 2ML VIAL ONE (06:54)
[2017-05-30] MEDS ORDERED: NEOMY SULF/BACITRAC ZN/POLY OINT 30GM TUBE TP ONE (07:12)
[2017-05-30] MEDS ORDERED: FUROSEMIDE 10 MG/ML 4ML VIAL ONE ×3 (07:48→08:27)
[2017-05-30] MEDS ORDERED: MORPHINE SULFATE 2 MG/ML 1ML SYG ONE ×2 (07:49→07:56)
[2017-05-30] MEDS ORDERED: PROPOFOL 1000 MG/100 ML 100 ML IV ONE (08:08)
[2017-05-30] MEDS: LISINOPRIL 2.5 MG TABLET PO SCH (09:00)
[2017-05-30] MEDS: ASPIRIN 81MG TAB.CHEW PO SCH (09:00)
[2017-05-30] MEDS: SPIRONOLACTONE 25 MG TAB PO SCH (09:00)
[2017-05-30] MEDS: ATORVASTATIN CALCIUM 40 MG TABLET PO SCH (09:00)
[2017-05-30] MEDS: CLOPIDOGREL BISULFATE 75 MG TAB PO SCH (09:00)
[2017-05-30] MEDS: FUROSEMIDE 40 MG TABLET PO SCH (09:00)
[2017-05-30] MEDS: PREGABALIN 25 MG CAP PO SCH ×2 (09:00→20:08)
[2017-05-30 09:04] LABS: ABG BASE EXCESS -9.1 mmol/L (-2.0-3.0); ABG HCO3 20.9 mmol/L (21.0-28.0); ABG OXYGEN SATURATION 99.4 % (95.0-99.0); ABG PCO2 63 mmHg (35-48)
[2017-05-30] MEDS ORDERED: FUROSEMIDE 10 MG/ML 4ML VIAL IV SCH (10:15)
[2017-05-30] MEDS ORDERED: MEPERIDINE-PF 25 MG/ML SYG IVP PRN (10:15)
[2017-05-30 10:26] LABS: ABG BASE EXCESS -5.6 mmol/L (-2.0-3.0); ABG HCO3 23.4 mmol/L (21.0-28.0); ABG OXYGEN SATURATION 99.6 % (95.0-99.0); ABG PCO2 61 mmHg (35-48)
[2017-05-30] MEDS: FAMOTIDINE/PF 20 MG/2 ML VIAL IV SCH ×2 (10:34→20:50)
[2017-05-30] MEDS: ENOXAPARIN SODIUM 30 MG/0.3 ML SQ SCH (10:35)
[2017-05-30] MEDS: DOXYCYCLINE 100MG+NS 250ML 250 ML IV SCH ×2 (10:49→20:50)
[2017-05-30] MEDS: NOREPINEPHRINE 4MG/NS 250ML 250 ML IV SCH (13:36)
[2017-05-30] MEDS ORDERED: POTASSIUM CHLORIDE 20MEQ/100ML 100 ML IV PRN ×2 (14:00)
[2017-05-30] MEDS ORDERED: PROPOFOL 1000 MG/100 ML IV PRN (14:00)
[2017-05-30] MEDS ORDERED: POTASSIUM CHLORIDE 20 MEQ ERTAB PO PRN (14:00)
[2017-05-30] MEDS ORDERED: LIDOCAINE HCL-MPF 1% 2ML VIAL IVP PRN (14:00)
[2017-05-30] MEDS: KETOROLAC TROMETHAMINE 15MG/ML IV SCH (20:08)
[2017-05-30] MEDS: FUROSEMIDE 10 MG/ML 4ML VIAL IV SCH (20:50)
[2017-05-30] MEDS: PROPOFOL 1000 MG/100 ML 100 ML IV PRN (23:38)
[2017-05-31] VITALS (24 sets, daily range): BP systolic 108–148; BP diastolic 47–72
[2017-05-31] MEDS: NOREPINEPHRINE 4MG/NS 250ML 250 ML IV SCH (02:13)
[2017-05-31] MEDS: FUROSEMIDE 10 MG/ML 4ML VIAL IV SCH ×3 (03:30→20:48)
[2017-05-31] MEDS: PROPOFOL 1000 MG/100 ML 100 ML IV PRN (03:37)
[2017-05-31] MEDS: INSULIN HUMULIN R 100 UNIT/ML 3ML SQ SCH ×4 (05:33→20:48)
[2017-05-31 06:05] LABS: BASOPHILS % (AUTO) 0.9 % (0.0-5.0); EOSINOPHILS % (AUTO) 1.8 % (0.0-8.0); HEMATOCRIT 34.8 % (42-54); LYMPHOCYTES % (AUTO) 14.3 % (21.0-51.0); MEAN CORPUSCULAR HEMOGLOBIN 31.4 pg (27.0-33.0); MEAN CORPUSCULAR HGB CONC 33.7 g/dL (32.0-36.0); MEAN CORPUSCULAR VOLUME 93.1 fL (79-99); MONOCYTES % (AUTO) 7.4 % (3.0-13.0); NEUTROPHILS % (AUTO) 75.6 % (40.0-77.0); PLATELET COUNT (AUTO) 350 K/uL (130-400); RED BLOOD CELL COUNT(AUTO) 3.74 MIL/uL (4.50-6.20); RED CELL DISTRIBUTION WIDTH 13.9 % (11.0-15.5); WHITE BLOOD COUNT (AUTO) 15.2 K/uL (4.8-10.8)
[2017-05-31 06:22] LABS: BILIRUBIN,TOTAL 0.3 mg/dL (0.2-1.0); CREATININE 1.3 mg/dL (0.5-1.5); MAGNESIUM 1.6 mg/dL (1.80-2.40); PHOSPHORUS 3.4 mg/dL (2.5-4.9); POTASSIUM 3.7 mmol/L (3.5-5.1); TOTAL PROTEIN, SERUM 6.3 g/dL (6.0-8.3)
[2017-05-31] MEDS: LEVOFLOXACIN 500 MG/D5W 100 ML 100 ML IV SCH (07:47)
[2017-05-31] MEDS: ENOXAPARIN SODIUM 30 MG/0.3 ML SQ SCH (07:48)
[2017-05-31] MEDS: FAMOTIDINE/PF 20 MG/2 ML VIAL IV SCH ×2 (07:49→20:59)
[2017-05-31] MEDS: PREGABALIN 25 MG CAP PO SCH ×2 (07:49→20:59)
[2017-05-31] MEDS: CLOPIDOGREL BISULFATE 75 MG TAB PO SCH (07:49)
[2017-05-31] MEDS: ASPIRIN 81MG TAB.CHEW PO SCH (07:49)
[2017-05-31] MEDS: ATORVASTATIN CALCIUM 40 MG TABLET PO SCH (07:49)
[2017-05-31] MEDS: DOXYCYCLINE 100MG+NS 250ML 250 ML IV SCH ×2 (07:50→20:48)
[2017-05-31] MEDS ORDERED: FUROSEMIDE 10 MG/ML 4ML VIAL IV SCH (09:00)
[2017-05-31 10:55] LABS: ABG BASE EXCESS 0.8 mmol/L (-2.0-3.0); ABG HCO3 23.2 mmol/L (21.0-28.0); ABG OXYGEN SATURATION 97.6 % (95.0-99.0); ABG PCO2 31 mmHg (35-48)
[2017-05-31] MEDS: MUPIROCIN OINTMENT 22 GM TUBE TP SCH (11:11)
[2017-05-31] MEDS: ACETAMINOPHEN-CODEINE 300/30MG TAB PO PRN ×2 (11:15→18:32)
[2017-05-31] MEDS: METOPROLOL TARTRATE 25 MG TAB PO SCH (21:00)
[2017-05-31] MEDS: KETOROLAC TROMETHAMINE 15MG/ML IV SCH (21:34)
[2017-06-01] VITALS (23 sets, daily range): BP systolic 97–134; BP diastolic 45–86
[2017-06-01] MEDS: FUROSEMIDE 10 MG/ML 4ML VIAL IV SCH ×3 (03:43→20:30)
[2017-06-01] MEDS: ACETAMINOPHEN-CODEINE 300/30MG TAB PO PRN ×2 (04:13→15:47)
[2017-06-01 05:09] LABS: HEMATOCRIT 32.9 % (42-54); MEAN CORPUSCULAR HEMOGLOBIN 32.3 pg (27.0-33.0); MEAN CORPUSCULAR HGB CONC 34.9 g/dL (32.0-36.0); MEAN CORPUSCULAR VOLUME 92.6 fL (79-99); PLATELET COUNT (AUTO) 281 K/uL (130-400); RED BLOOD CELL COUNT(AUTO) 3.55 MIL/uL (4.50-6.20); RED CELL DISTRIBUTION WIDTH 13.8 % (11.0-15.5); WHITE BLOOD COUNT (AUTO) 21.8 K/uL (4.8-10.8)
[2017-06-01 05:18] LABS: CREATININE 1.4 mg/dL (0.5-1.5); POTASSIUM 3.4 mmol/L (3.5-5.1)
[2017-06-01 06:00] LABS: B-TYPE NATRIURETIC PEPTIDE 582 pg/mL (0-100)
[2017-06-01] MEDS: POTASSIUM CHLORIDE 20 MEQ ERTAB PO PRN ×2 (06:01→09:50)
[2017-06-01] MEDS: INSULIN HUMULIN R 100 UNIT/ML 3ML SQ SCH ×4 (06:02→20:41)
[2017-06-01] MEDS: MUPIROCIN OINTMENT 22 GM TUBE TP SCH (09:00)
[2017-06-01] MEDS: CLOPIDOGREL BISULFATE 75 MG TAB PO SCH (09:43)
[2017-06-01] MEDS: ASPIRIN 81MG TAB.CHEW PO SCH (09:43)
[2017-06-01] MEDS: ATORVASTATIN CALCIUM 40 MG TABLET PO SCH (09:43)
[2017-06-01] MEDS: METOPROLOL TARTRATE 25 MG TAB PO SCH ×2 (09:43→20:31)
[2017-06-01] MEDS: LEVOFLOXACIN 500 MG/D5W 100 ML 100 ML IV SCH (09:44)
[2017-06-01] MEDS: DOXYCYCLINE 100MG+NS 250ML 250 ML IV SCH ×2 (09:44→20:29)
[2017-06-01] MEDS: FAMOTIDINE/PF 20 MG/2 ML VIAL IV SCH ×2 (09:44→20:31)
[2017-06-01] MEDS: PREGABALIN 25 MG CAP PO SCH ×2 (09:44→20:32)
[2017-06-01] MEDS: ENOXAPARIN SODIUM 30 MG/0.3 ML SQ SCH (09:45)
[2017-06-01 14:38] LABS: ABG BASE EXCESS 6.2 mmol/L (-2.0-3.0); ABG HCO3 30.4 mmol/L (21.0-28.0); ABG OXYGEN SATURATION 95.6 % (95.0-99.0); ABG PCO2 42 mmHg (35-48)
[2017-06-01] MEDS ORDERED: CEFEPIME 1GM+NS 50ML 50 ML IV SCH (15:00)
[2017-06-01] MEDS: CEFEPIME HCL 1 GM VIAL IVP SCH (15:28)
[2017-06-01] MEDS ORDERED: SPIRONOLACTONE 25 MG TAB ONE (15:42)
[2017-06-01] MEDS ORDERED: SODIUM CHLORIDE 3% FOR INHALATION 4 ML/AMP VIAL.NEB IH ONE (23:24)
[2017-06-01] MEDS: ACETAMINOPHEN 325 MG TAB PO PRN (23:42)
[2017-06-02] VITALS (25 sets, daily range): BP systolic 88–114; BP diastolic 39–70
[2017-06-02] MEDS: CEFEPIME HCL 1 GM VIAL IVP SCH ×2 (00:07→06:36)
[2017-06-02 04:25] LABS: ABG BASE EXCESS 6.4 mmol/L (-2.0-3.0); ABG HCO3 31.6 mmol/L (21.0-28.0); ABG OXYGEN SATURATION 97.4 % (95.0-99.0); ABG PCO2 47 mmHg (35-48)
[2017-06-02 04:59] LABS: HEMATOCRIT 32.5 % (42-54); MEAN CORPUSCULAR HEMOGLOBIN 30.8 pg (27.0-33.0); MEAN CORPUSCULAR HGB CONC 32.9 g/dL (32.0-36.0); MEAN CORPUSCULAR VOLUME 93.5 fL (79-99); PLATELET COUNT (AUTO) 284 K/uL (130-400); RED BLOOD CELL COUNT(AUTO) 3.48 MIL/uL (4.50-6.20); RED CELL DISTRIBUTION WIDTH 13.7 % (11.0-15.5); WHITE BLOOD COUNT (AUTO) 28.2 K/uL (4.8-10.8)
[2017-06-02 05:21] LABS: ALBUMIN 1.8 g/dL (3.5-5.0); BILIRUBIN,TOTAL 0.4 mg/dL (0.2-1.0); CREATININE 1.4 mg/dL (0.5-1.5); MAGNESIUM 1.8 mg/dL (1.80-2.40); PHOSPHORUS 3.7 mg/dL (2.5-4.9); POTASSIUM 3.5 mmol/L (3.5-5.1); TOTAL PROTEIN, SERUM 6.4 g/dL (6.0-8.3)
[2017-06-02] MEDS: POTASSIUM CHLORIDE 20 MEQ ERTAB PO PRN (06:12)
[2017-06-02] MEDS: INSULIN HUMULIN R 100 UNIT/ML 3ML SQ SCH ×4 (06:16→21:00)
[2017-06-02] MEDS ORDERED: MAGNESIUM 2GM PREMIX 50ML 50 ML IV SCH (08:15)
[2017-06-02] MEDS: FUROSEMIDE 10 MG/ML 4ML VIAL IV SCH ×2 (08:50→22:14)
[2017-06-02] MEDS: ASPIRIN 81MG TAB.CHEW PO SCH (08:50)
[2017-06-02] MEDS: CLOPIDOGREL BISULFATE 75 MG TAB PO SCH (08:50)
[2017-06-02] MEDS: DOXYCYCLINE 100MG+NS 250ML 250 ML IV SCH ×2 (08:50→22:13)
[2017-06-02] MEDS: ENOXAPARIN SODIUM 30 MG/0.3 ML SQ SCH (08:50)
[2017-06-02] MEDS: METOPROLOL TARTRATE 25 MG TAB PO SCH ×2 (08:51→23:15)
[2017-06-02] MEDS: PREGABALIN 25 MG CAP PO SCH ×2 (08:51→22:14)
[2017-06-02] MEDS: SPIRONOLACTONE 25 MG TAB PO SCH (08:51)
[2017-06-02] MEDS: ATORVASTATIN CALCIUM 40 MG TABLET PO SCH (08:51)
[2017-06-02] MEDS ORDERED: PANTOPRAZOLE SODIUM 40 MG TABLET.DR PO SCH (09:00)
[2017-06-02] MEDS: ACETAMINOPHEN-CODEINE 300/30MG TAB PO PRN ×2 (09:02→13:05)
[2017-06-02] MEDS: FAMOTIDINE 20MG TAB 20 MG TAB PO SCH (10:53)
[2017-06-02] MEDS: ACETAMINOPHEN 325 MG TAB PO PRN ×2 (11:19→21:30)
[2017-06-02] MEDS ORDERED: VANCOMYCIN PROTOCOL PER PHARMACY IV SCH (12:15)
[2017-06-02] MEDS ORDERED: ZOSYN 3.375GM+NS 50ML 50 ML IV SCH (12:15)
[2017-06-02] MEDS ORDERED: COMPOUND IV REFRIGERATED 1 EACH IVSOLN MISC PRN (12:30)
[2017-06-02] MEDS: MUPIROCIN OINTMENT 22 GM TUBE TP SCH (12:30)
[2017-06-02] MEDS ORDERED: VANCOMYCIN 1.5 GM in N.S. 250 ML IV SCH (13:00)
[2017-06-02] MEDS: MEROPENEM 1 GM VIAL IVP SCH ×2 (15:20→22:14)
[2017-06-03] VITALS (29 sets, daily range): BP systolic 79–145; BP diastolic 40–70
[2017-06-03] MEDS: ACETAMINOPHEN-CODEINE 300/30MG TAB PO PRN (02:43)
[2017-06-03] MEDS: MEROPENEM 1 GM VIAL IVP SCH ×3 (04:26→21:42)
[2017-06-03 04:35] LABS: HEMATOCRIT 30.6 % (42-54); MEAN CORPUSCULAR HEMOGLOBIN 31.4 pg (27.0-33.0); MEAN CORPUSCULAR HGB CONC 33.7 g/dL (32.0-36.0); MEAN CORPUSCULAR VOLUME 93.1 fL (79-99); PLATELET COUNT (AUTO) 261 K/uL (130-400); RED BLOOD CELL COUNT(AUTO) 3.29 MIL/uL (4.50-6.20); RED CELL DISTRIBUTION WIDTH 13.7 % (11.0-15.5); WHITE BLOOD COUNT (AUTO) 20.4 K/uL (4.8-10.8)
[2017-06-03 04:49] LABS: INR 1.02 (0.85-1.15); PARTIAL THROMBOPLASTIN TIME 37.9 SEC (26.3-35.5); PROTHROMBIN TIME 10.7 SEC (9.6-11.6)
[2017-06-03 04:59] LABS: ALBUMIN 1.6 g/dL (3.5-5.0); BILIRUBIN,TOTAL 0.4 mg/dL (0.2-1.0); CREATININE 1.4 mg/dL (0.5-1.5); MAGNESIUM 1.9 mg/dL (1.80-2.40); PHOSPHORUS 3.2 mg/dL (2.5-4.9); POTASSIUM 3.6 mmol/L (3.5-5.1); TOTAL PROTEIN, SERUM 6.2 g/dL (6.0-8.3)
[2017-06-03] MEDS: INSULIN HUMULIN R 100 UNIT/ML 3ML SQ SCH ×4 (06:47→21:41)
[2017-06-03] MEDS: VANCOMYCIN 1GM+NS 250ML 250 ML IV SCH ×2 (06:55→23:35)
[2017-06-03] MEDS: DOXYCYCLINE 100MG+NS 250ML 250 ML IV SCH ×2 (07:41→20:30)
[2017-06-03] MEDS: SPIRONOLACTONE 25 MG TAB PO SCH (07:42)
[2017-06-03] MEDS: FUROSEMIDE 10 MG/ML 4ML VIAL IV SCH (07:42)
[2017-06-03] MEDS: METOPROLOL TARTRATE 25 MG TAB PO SCH (07:43)
[2017-06-03] MEDS: PREGABALIN 25 MG CAP PO SCH ×2 (07:43→21:40)
[2017-06-03] MEDS: ASPIRIN 81MG TAB.CHEW PO SCH (07:43)
[2017-06-03] MEDS: ATORVASTATIN CALCIUM 40 MG TABLET PO SCH (07:43)
[2017-06-03] MEDS: FAMOTIDINE 20MG TAB 20 MG TAB PO SCH (07:44)
[2017-06-03] MEDS: CLOPIDOGREL BISULFATE 75 MG TAB PO SCH (07:54)
[2017-06-03] MEDS: ENOXAPARIN SODIUM 30 MG/0.3 ML SQ SCH (07:54)
[2017-06-03] MEDS: ACETAMINOPHEN 325 MG TAB PO PRN ×2 (08:00→20:31)
[2017-06-03] MEDS ORDERED: SODIUM CHLORIDE 0.9% 500ML 500 ML IV STA (09:26)
[2017-06-03] MEDS ORDERED: SODIUM CHLORIDE 0.9% 250 ML IV ONE (09:34)
[2017-06-03] MEDS ORDERED: NEOMY SULF/POLYMYXIN B SULFATE 1 ML AMPUL IR ONE (10:54)
[2017-06-03] MEDS: MUPIROCIN OINTMENT 22 GM TUBE TP SCH (11:36)
[2017-06-03] MEDS: NOREPINEPHRINE 4MG/NS 250ML 250 ML IV SCH (11:36)
[2017-06-04] VITALS (23 sets, daily range): BP systolic 99–145; BP diastolic 51–79
[2017-06-04] MEDS: MEROPENEM 1 GM VIAL IVP SCH ×3 (04:04→19:53)
[2017-06-04 04:13] LABS: ABG BASE EXCESS 2.9 mmol/L (-2.0-3.0); ABG HCO3 27.3 mmol/L (21.0-28.0); ABG OXYGEN SATURATION 96.6 % (95.0-99.0); ABG PCO2 41 mmHg (35-48)
[2017-06-04 04:35] LABS: HEMATOCRIT 33.3 % (42-54); MEAN CORPUSCULAR HEMOGLOBIN 30.7 pg (27.0-33.0); MEAN CORPUSCULAR VOLUME 92.9 fL (79-99); PLATELET COUNT (AUTO) 282 K/uL (130-400); RED BLOOD CELL COUNT(AUTO) 3.59 MIL/uL (4.50-6.20); RED CELL DISTRIBUTION WIDTH 14.2 % (11.0-15.5); WHITE BLOOD COUNT (AUTO) 12.5 K/uL (4.8-10.8)
[2017-06-04 04:51] LABS: ALBUMIN 1.7 g/dL (3.5-5.0); BILIRUBIN,TOTAL 0.4 mg/dL (0.2-1.0); CREATININE 1.2 mg/dL (0.5-1.5); MAGNESIUM 2.1 mg/dL (1.80-2.40); PHOSPHORUS 2.8 mg/dL (2.5-4.9); POTASSIUM 3.9 mmol/L (3.5-5.1); TOTAL PROTEIN, SERUM 6.3 g/dL (6.0-8.3)
[2017-06-04 06:18] LABS: B-TYPE NATRIURETIC PEPTIDE 2130 pg/mL (0-100)
[2017-06-04] MEDS: INSULIN HUMULIN R 100 UNIT/ML 3ML SQ SCH ×4 (06:31→20:35)
[2017-06-04] MEDS: NOREPINEPHRINE 4MG/NS 250ML 250 ML IV SCH (08:32)
[2017-06-04] MEDS: DOXYCYCLINE 100MG+NS 250ML 250 ML IV SCH ×2 (08:33→19:51)
[2017-06-04] MEDS: ASPIRIN 81MG TAB.CHEW PO SCH (08:43)
[2017-06-04] MEDS: ATORVASTATIN CALCIUM 40 MG TABLET PO SCH (08:44)
[2017-06-04] MEDS: FAMOTIDINE 20MG TAB 20 MG TAB PO SCH (08:44)
[2017-06-04] MEDS ORDERED: ROPIVACAINE 0.5% 5MG/ML 30ML IJ ONE (08:55)
[2017-06-04] MEDS: PREGABALIN 25 MG CAP PO SCH ×2 (09:00→19:54)
[2017-06-04] MEDS: CLOPIDOGREL BISULFATE 75 MG TAB PO SCH (09:00)
[2017-06-04] MEDS ORDERED: MIDAZOLAM HCL 1 MG/ML 2ML VIAL ONE ×2 (09:24→10:00)
[2017-06-04] MEDS ORDERED: FENTANYL CITRATE PF 50 MCG/1 ML 5ML AMP IV ONE ×2 (10:01→10:06)
[2017-06-04] MEDS: MUPIROCIN OINTMENT 22 GM TUBE TP SCH (11:00)
[2017-06-04] MEDS: ENOXAPARIN SODIUM 30 MG/0.3 ML SQ SCH (11:42)
[2017-06-04] MEDS ORDERED: FUROSEMIDE 10 MG/ML 2ML VIAL IV SCH (11:45)
[2017-06-04] MEDS: SPIRONOLACTONE 25 MG TAB PO SCH (11:45)
[2017-06-04] MEDS ORDERED: SODIUM CHLORIDE 0.9% 500ML 500 ML IV ONE (12:41)
[2017-06-04] MEDS: MAG HYDROX/AL HYDROX/SIMETH ES 30 ML SUSP UDCUP PO PRN (18:37)
[2017-06-04] MEDS: VANCOMYCIN 1GM+NS 250ML 250 ML IV SCH (19:46)
[2017-06-05] VITALS (24 sets, daily range): BP systolic 99–132; BP diastolic 45–84
[2017-06-05] MEDS: MEROPENEM 1 GM VIAL IVP SCH ×3 (04:34→21:20)
[2017-06-05 04:41] LABS: HEMATOCRIT 31.9 % (42-54); MEAN CORPUSCULAR HEMOGLOBIN 31.4 pg (27.0-33.0); MEAN CORPUSCULAR HGB CONC 34.1 g/dL (32.0-36.0); MEAN CORPUSCULAR VOLUME 92.3 fL (79-99); NUCLEATED RED BLOOD CELLS 0.1 % (0.0-0.19); PLATELET COUNT (AUTO) 270 K/uL (130-400); RED BLOOD CELL COUNT(AUTO) 3.46 MIL/uL (4.50-6.20); RED CELL DISTRIBUTION WIDTH 14.1 % (11.0-15.5); WHITE BLOOD COUNT (AUTO) 13.1 K/uL (4.8-10.8)
[2017-06-05 04:48] LABS: MAGNESIUM 2.2 mg/dL (1.80-2.40); POTASSIUM 3.8 mmol/L (3.5-5.1)
[2017-06-05] MEDS: INSULIN HUMULIN R 100 UNIT/ML 3ML SQ SCH ×3 (06:42→21:32)
[2017-06-05] MEDS: ENOXAPARIN SODIUM 30 MG/0.3 ML SQ SCH (07:22)
[2017-06-05] MEDS: FAMOTIDINE 20MG TAB 20 MG TAB PO SCH (07:22)
[2017-06-05] MEDS: DOXYCYCLINE 100MG+NS 250ML 250 ML IV SCH (07:22)
[2017-06-05] MEDS: SPIRONOLACTONE 25 MG TAB PO SCH (07:22)
[2017-06-05] MEDS: ATORVASTATIN CALCIUM 40 MG TABLET PO SCH (07:22)
[2017-06-05] MEDS: ASPIRIN 81MG TAB.CHEW PO SCH (07:23)
[2017-06-05] MEDS: CLOPIDOGREL BISULFATE 75 MG TAB PO SCH (07:23)
[2017-06-05] MEDS: PREGABALIN 25 MG CAP PO SCH ×2 (08:11→21:22)
[2017-06-05] MEDS: FUROSEMIDE 20 MG TABLET PO SCH (08:13)
[2017-06-05] MEDS: MUPIROCIN OINTMENT 22 GM TUBE TP SCH (12:06)
[2017-06-05] MEDS ORDERED: VANCOMYCIN 1GM+NS 250ML 250 ML IV SCH (13:17)
[2017-06-05] MEDS: MAG HYDROX/AL HYDROX/SIMETH ES 30 ML SUSP UDCUP PO PRN (13:46)
[2017-06-05] MEDS: VANCOMYCIN 1GM+NS 250ML 250 ML IV SCH (21:23)
[2017-06-06] VITALS (32 sets, daily range): BP systolic 100–145; BP diastolic 41–109
[2017-06-06 04:00] LABS: HEMATOCRIT 30.9 % (42-54); MEAN CORPUSCULAR HEMOGLOBIN 30.6 pg (27.0-33.0); MEAN CORPUSCULAR HGB CONC 33.4 g/dL (32.0-36.0); MEAN CORPUSCULAR VOLUME 91.6 fL (79-99); PLATELET COUNT (AUTO) 256 K/uL (130-400); RED BLOOD CELL COUNT(AUTO) 3.37 MIL/uL (4.50-6.20); RED CELL DISTRIBUTION WIDTH 13.9 % (11.0-15.5); WHITE BLOOD COUNT (AUTO) 10.2 K/uL (4.8-10.8)
[2017-06-06 04:10] LABS: INR 1.02 (0.85-1.15); PARTIAL THROMBOPLASTIN TIME 34.5 SEC (26.3-35.5); PROTHROMBIN TIME 10.7 SEC (9.6-11.6)
[2017-06-06 04:11] LABS: CREATININE 0.9 mg/dL (0.5-1.5); POTASSIUM 3.6 mmol/L (3.5-5.1)
[2017-06-06 04:12] LABS: B-TYPE NATRIURETIC PEPTIDE 1080 pg/mL (0-100)
[2017-06-06] MEDS: MEROPENEM 1 GM VIAL IVP SCH ×3 (04:20→21:50)
[2017-06-06] MEDS: INSULIN HUMULIN R 100 UNIT/ML 3ML SQ SCH ×4 (06:15→22:01)
[2017-06-06] MEDS: ENOXAPARIN SODIUM 30 MG/0.3 ML SQ SCH (08:48)
[2017-06-06] MEDS: PREGABALIN 25 MG CAP PO SCH ×2 (08:48→21:00)
[2017-06-06] MEDS: FAMOTIDINE 20MG TAB 20 MG TAB PO SCH (08:48)
[2017-06-06] MEDS: CLOPIDOGREL BISULFATE 75 MG TAB PO SCH (08:48)
[2017-06-06] MEDS: FUROSEMIDE 20 MG TABLET PO SCH (08:48)
[2017-06-06] MEDS: ATORVASTATIN CALCIUM 40 MG TABLET PO SCH (08:48)
[2017-06-06] MEDS: SPIRONOLACTONE 25 MG TAB PO SCH (08:48)
[2017-06-06] MEDS: ASPIRIN 81MG TAB.CHEW PO SCH (08:48)
[2017-06-06] MEDS: VANCOMYCIN 1GM+NS 250ML 250 ML IV SCH ×2 (09:00→22:58)
[2017-06-06] MEDS ORDERED: MIDAZOLAM HCL 1 MG/ML 2ML VIAL ONE (10:38)
[2017-06-06] MEDS ORDERED: KETAMINE HCL 100 MG/ML 5ML VIAL IJ ONE (10:44)
[2017-06-06] MEDS ORDERED: HEPARIN SODIUM 1000UNIT/ML 10ML VIAL ONE (10:51)
[2017-06-06] MEDS ORDERED: FENTANYL CITRATE PF 50 MCG/1 ML 2ML VIAL ONE ×2 (10:51→11:29)
[2017-06-06] MEDS ORDERED: BACITRACIN 50,000 UNIT VIAL ONE (10:51)
[2017-06-06] MEDS: MUPIROCIN OINTMENT 22 GM TUBE TP SCH (11:00)
[2017-06-06] MEDS ORDERED: SODIUM CHLORIDE 0.9% 10 ML VIAL ONE (11:29)
[2017-06-06] MEDS ORDERED: ROCURONIUM BROMIDE 10MG/1ML 5ML VL ONE (11:29)
[2017-06-06] MEDS ORDERED: PHENYLEPHRINE HCL 10 MG/ML 1ML VIAL IV ONE (11:29)
[2017-06-06] MEDS ORDERED: LIDOCAINE PF 2% 5ML ABBOJECT ONE (11:29)
[2017-06-06] MEDS ORDERED: NOREPINEPHRINE BITARTRATE 1 MG/1 ML ML IV ONE (12:00)
[2017-06-06] MEDS ORDERED: FENTANYL CITRATE PF 50 MCG/1 ML 5ML AMP IV ONE (13:52)
[2017-06-06] MEDS ORDERED: PREGABALIN 75 MG CAPSULE ONE (21:32)
[2017-06-07] VITALS (11 sets, daily range): BP systolic 92–119; BP diastolic 47–73
[2017-06-07 03:58] LABS: HEMATOCRIT 28.4 % (42-54); MEAN CORPUSCULAR HEMOGLOBIN 32.3 pg (27.0-33.0); MEAN CORPUSCULAR HGB CONC 34.7 g/dL (32.0-36.0); MEAN CORPUSCULAR VOLUME 93.1 fL (79-99); NUCLEATED RED BLOOD CELLS 0.1 % (0.0-0.19); PLATELET COUNT (AUTO) 301 K/uL (130-400); RED BLOOD CELL COUNT(AUTO) 3.05 MIL/uL (4.50-6.20); RED CELL DISTRIBUTION WIDTH 14.1 % (11.0-15.5); WHITE BLOOD COUNT (AUTO) 10.3 K/uL (4.8-10.8)
[2017-06-07 04:18] LABS: POTASSIUM 4.3 mmol/L (3.5-5.1)
[2017-06-07] MEDS: MEROPENEM 1 GM VIAL IVP SCH ×3 (05:04→21:46)
[2017-06-07] MEDS: INSULIN HUMULIN R 100 UNIT/ML 3ML SQ SCH ×4 (07:02→21:00)
[2017-06-07] MEDS: ATORVASTATIN CALCIUM 40 MG TABLET PO SCH (08:55)
[2017-06-07] MEDS: FAMOTIDINE 20MG TAB 20 MG TAB PO SCH (08:55)
[2017-06-07] MEDS: CLOPIDOGREL BISULFATE 75 MG TAB PO SCH (08:55)
[2017-06-07] MEDS: FUROSEMIDE 20 MG TABLET PO SCH (08:56)
[2017-06-07] MEDS: SPIRONOLACTONE 25 MG TAB PO SCH (08:56)
[2017-06-07] MEDS: ASPIRIN 81MG TAB.CHEW PO SCH (08:56)
[2017-06-07] MEDS: VANCOMYCIN 1GM+NS 250ML 250 ML IV SCH ×2 (08:58→21:51)
[2017-06-07] MEDS: PREGABALIN 25 MG CAP PO SCH ×2 (09:01→21:47)
[2017-06-07] MEDS: ENOXAPARIN SODIUM 30 MG/0.3 ML SQ SCH (10:35)
[2017-06-07] MEDS: MUPIROCIN OINTMENT 22 GM TUBE TP SCH (15:24)
[2017-06-08 03:49] VITALS: BP 102/44
[2017-06-08 05:03] LABS: HEMATOCRIT 27.5 % (42-54); MEAN CORPUSCULAR HGB CONC 33.7 g/dL (32.0-36.0); MEAN CORPUSCULAR VOLUME 92.1 fL (79-99); NUCLEATED RED BLOOD CELLS 0.1 % (0.0-0.19); PLATELET COUNT (AUTO) 330 K/uL (130-400); RED BLOOD CELL COUNT(AUTO) 2.99 MIL/uL (4.50-6.20); RED CELL DISTRIBUTION WIDTH 14.3 % (11.0-15.5)
[2017-06-08 05:38] LABS: CREATININE 0.9 mg/dL (0.5-1.5)
[2017-06-08] MEDS: MEROPENEM 1 GM VIAL IVP SCH ×3 (06:42→20:38)
[2017-06-08 07:10] VITALS: BP 104/54
[2017-06-08] MEDS: INSULIN HUMULIN R 100 UNIT/ML 3ML SQ SCH ×4 (07:30→21:44)
[2017-06-08] MEDS: CLOPIDOGREL BISULFATE 75 MG TAB PO SCH (08:27)
[2017-06-08] MEDS: ATORVASTATIN CALCIUM 40 MG TABLET PO SCH (08:27)
[2017-06-08] MEDS: SPIRONOLACTONE 25 MG TAB PO SCH (08:27)
[2017-06-08] MEDS: FAMOTIDINE 20MG TAB 20 MG TAB PO SCH (08:27)
[2017-06-08] MEDS: ASPIRIN 81MG TAB.CHEW PO SCH (08:27)
[2017-06-08] MEDS: ENOXAPARIN SODIUM 30 MG/0.3 ML SQ SCH (08:27)
[2017-06-08] MEDS: FUROSEMIDE 20 MG TABLET PO SCH (08:27)
[2017-06-08] MEDS: PREGABALIN 25 MG CAP PO SCH (08:29)
[2017-06-08] MEDS: MUPIROCIN OINTMENT 22 GM TUBE TP SCH (11:29)
[2017-06-08 12:21] VITALS: BP 109/56
[2017-06-08] MEDS: ACETAMINOPHEN-CODEINE 300/30MG TAB PO PRN (15:06)
[2017-06-08 16:05] VITALS: BP 112/63
[2017-06-08] MEDS: PREGABALIN 75 MG CAPSULE PO SCH (18:28)
[2017-06-08 19:10] VITALS: BP 107/54
[2017-06-08 23:53] VITALS: BP 113/55
[2017-06-09 03:47] VITALS: BP 106/56
[2017-06-09 04:40] LABS: HEMATOCRIT 26.1 % (42-54); MEAN CORPUSCULAR HEMOGLOBIN 31.5 pg (27.0-33.0); MEAN CORPUSCULAR VOLUME 92.7 fL (79-99); NUCLEATED RED BLOOD CELLS 0.1 % (0.0-0.19); PLATELET COUNT (AUTO) 361 K/uL (130-400); RED BLOOD CELL COUNT(AUTO) 2.81 MIL/uL (4.50-6.20); RED CELL DISTRIBUTION WIDTH 14.2 % (11.0-15.5); WHITE BLOOD COUNT (AUTO) 8.6 K/uL (4.8-10.8)
[2017-06-09] MEDS: MORPHINE SULFATE 2 MG/ML 1ML SYG IVP PRN ×2 (04:44→21:42)
[2017-06-09] MEDS: MEROPENEM 1 GM VIAL IVP SCH ×3 (04:44→19:53)
[2017-06-09 04:50] LABS: CREATININE 0.9 mg/dL (0.5-1.5); POTASSIUM 3.9 mmol/L (3.5-5.1)
[2017-06-09] MEDS: INSULIN HUMULIN R 100 UNIT/ML 3ML SQ SCH ×4 (06:10→21:41)
[2017-06-09 07:05] VITALS: BP 103/55
[2017-06-09] MEDS: FAMOTIDINE 20MG TAB 20 MG TAB PO SCH (07:15)
[2017-06-09] MEDS: CLOPIDOGREL BISULFATE 75 MG TAB PO SCH (07:15)
[2017-06-09] MEDS: ATORVASTATIN CALCIUM 40 MG TABLET PO SCH (07:15)
[2017-06-09] MEDS: SPIRONOLACTONE 25 MG TAB PO SCH (07:15)
[2017-06-09] MEDS: ASPIRIN 81MG TAB.CHEW PO SCH (07:15)
[2017-06-09] MEDS: MUPIROCIN OINTMENT 22 GM TUBE TP SCH (07:16)
[2017-06-09] MEDS: PREGABALIN 75 MG CAPSULE PO SCH ×2 (07:16→19:50)
[2017-06-09] MEDS: ENOXAPARIN SODIUM 30 MG/0.3 ML SQ SCH (07:16)
[2017-06-09] MEDS: FUROSEMIDE 20 MG TABLET PO SCH (07:16)
[2017-06-09 11:55] VITALS: BP 106/50
[2017-06-09] MEDS: ACETAMINOPHEN-CODEINE 300/30MG TAB PO PRN (14:38)
[2017-06-09 15:45] VITALS: BP 111/53
[2017-06-09 19:15] VITALS: BP 119/62
[2017-06-09] MEDS: LOSARTAN 50 MG TABLET PO SCH (19:50)
[2017-06-09 23:50] VITALS: BP 138/56
[2017-06-10 03:15] VITALS: BP 115/61
[2017-06-10 04:38] LABS: HEMATOCRIT 28.4 % (42-54); MEAN CORPUSCULAR HGB CONC 33.7 g/dL (32.0-36.0); PLATELET COUNT (AUTO) 439 K/uL (130-400); RED BLOOD CELL COUNT(AUTO) 3.09 MIL/uL (4.50-6.20); RED CELL DISTRIBUTION WIDTH 14.6 % (11.0-15.5); WHITE BLOOD COUNT (AUTO) 9.4 K/uL (4.8-10.8)
[2017-06-10 04:59] LABS: CREATININE 0.8 mg/dL (0.5-1.5); MAGNESIUM 2.1 mg/dL (1.80-2.40); POTASSIUM 4.2 mmol/L (3.5-5.1)
[2017-06-10] MEDS: MEROPENEM 1 GM VIAL IVP SCH ×3 (05:05→20:27)
[2017-06-10] MEDS: INSULIN HUMULIN R 100 UNIT/ML 3ML SQ SCH ×4 (06:03→21:23)
[2017-06-10 07:42] VITALS: BP 116/58
[2017-06-10] MEDS: FAMOTIDINE 20MG TAB 20 MG TAB PO SCH (10:20)
[2017-06-10] MEDS: ATORVASTATIN CALCIUM 40 MG TABLET PO SCH (10:20)
[2017-06-10] MEDS: PREGABALIN 75 MG CAPSULE PO SCH ×2 (10:20→20:27)
[2017-06-10] MEDS: FUROSEMIDE 20 MG TABLET PO SCH (10:21)
[2017-06-10] MEDS: CLOPIDOGREL BISULFATE 75 MG TAB PO SCH (10:21)
[2017-06-10] MEDS: ASPIRIN 81MG TAB.CHEW PO SCH (10:21)
[2017-06-10] MEDS: SPIRONOLACTONE 25 MG TAB PO SCH (10:21)
[2017-06-10] MEDS: ENOXAPARIN SODIUM 30 MG/0.3 ML SQ SCH (10:23)
[2017-06-10] MEDS: MUPIROCIN OINTMENT 22 GM TUBE TP SCH (10:23)
[2017-06-10 11:52] VITALS: BP 126/57
[2017-06-10] MEDS: ACETAMINOPHEN-CODEINE 300/30MG TAB PO PRN (14:08)
[2017-06-10 16:00] VITALS: BP 103/55
[2017-06-10 19:41] VITALS: BP 110/56
[2017-06-10] MEDS: LOSARTAN 50 MG TABLET PO SCH (20:27)
[2017-06-10 23:56] VITALS: BP 114/55
[2017-06-11 04:00] VITALS: BP 106/50
[2017-06-11] MEDS: MEROPENEM 1 GM VIAL IVP SCH ×3 (04:58→20:15)
[2017-06-11 05:47] LABS: HEMATOCRIT 28.4 % (42-54); MEAN CORPUSCULAR HEMOGLOBIN 31.7 pg (27.0-33.0); MEAN CORPUSCULAR HGB CONC 34.5 g/dL (32.0-36.0); PLATELET COUNT (AUTO) 441 K/uL (130-400); RED BLOOD CELL COUNT(AUTO) 3.08 MIL/uL (4.50-6.20); RED CELL DISTRIBUTION WIDTH 14.6 % (11.0-15.5); WHITE BLOOD COUNT (AUTO) 10.3 K/uL (4.8-10.8)
[2017-06-11] MEDS: INSULIN HUMULIN R 100 UNIT/ML 3ML SQ SCH ×4 (06:04→20:51)
[2017-06-11 06:14] LABS: MAGNESIUM 2.2 mg/dL (1.80-2.40); POTASSIUM 4.3 mmol/L (3.5-5.1)
[2017-06-11 07:00] VITALS: BP 111/57
[2017-06-11] MEDS: FAMOTIDINE 20MG TAB 20 MG TAB PO SCH (09:23)
[2017-06-11] MEDS: CLOPIDOGREL BISULFATE 75 MG TAB PO SCH (09:23)
[2017-06-11] MEDS: SPIRONOLACTONE 25 MG TAB PO SCH (09:23)
[2017-06-11] MEDS: FUROSEMIDE 40 MG TABLET PO SCH (09:23)
[2017-06-11] MEDS: ATORVASTATIN CALCIUM 40 MG TABLET PO SCH (09:23)
[2017-06-11] MEDS: PREGABALIN 75 MG CAPSULE PO SCH ×2 (09:23→20:15)
[2017-06-11] MEDS: ASPIRIN 81MG TAB.CHEW PO SCH (09:23)
[2017-06-11] MEDS: ENOXAPARIN SODIUM 30 MG/0.3 ML SQ SCH (09:24)
[2017-06-11 11:00] VITALS: BP 109/50
[2017-06-11] MEDS: MUPIROCIN OINTMENT 22 GM TUBE TP SCH (11:25)
[2017-06-11 16:00] VITALS: BP 107/46
[2017-06-11 19:38] VITALS: BP 89/52
[2017-06-11] MEDS: LOSARTAN 50 MG TABLET PO SCH ×2 (20:15→21:00)
[2017-06-11] MEDS: ACETAMINOPHEN 325 MG TAB PO PRN (21:44)
[2017-06-12] VITALS (7 sets, daily range): BP systolic 102–120; BP diastolic 55–60
[2017-06-12 04:50] LABS: HEMATOCRIT 28.2 % (42-54); MEAN CORPUSCULAR HEMOGLOBIN 31.6 pg (27.0-33.0); MEAN CORPUSCULAR HGB CONC 34.2 g/dL (32.0-36.0); MEAN CORPUSCULAR VOLUME 92.5 fL (79-99); PLATELET COUNT (AUTO) 445 K/uL (130-400); RED BLOOD CELL COUNT(AUTO) 3.04 MIL/uL (4.50-6.20); RED CELL DISTRIBUTION WIDTH 14.5 % (11.0-15.5); WHITE BLOOD COUNT (AUTO) 9.6 K/uL (4.8-10.8)
[2017-06-12] MEDS: MEROPENEM 1 GM VIAL IVP SCH ×3 (05:07→20:43)
[2017-06-12 05:25] LABS: INR 1.03 (0.85-1.15); PARTIAL THROMBOPLASTIN TIME 29.7 SEC (26.3-35.5); PROTHROMBIN TIME 10.8 SEC (9.6-11.6)
[2017-06-12] MEDS: INSULIN HUMULIN R 100 UNIT/ML 3ML SQ SCH ×4 (06:09→20:52)
[2017-06-12] MEDS: ACETAMINOPHEN 325 MG TAB PO PRN (06:31)
[2017-06-12] MEDS: CLOPIDOGREL BISULFATE 75 MG TAB PO SCH (09:20)
[2017-06-12] MEDS: ASPIRIN 81MG TAB.CHEW PO SCH (09:20)
[2017-06-12] MEDS: ATORVASTATIN CALCIUM 40 MG TABLET PO SCH (09:20)
[2017-06-12] MEDS: SPIRONOLACTONE 25 MG TAB PO SCH (09:20)
[2017-06-12] MEDS: PREGABALIN 75 MG CAPSULE PO SCH ×2 (09:20→20:45)
[2017-06-12] MEDS: FAMOTIDINE 20MG TAB 20 MG TAB PO SCH (09:20)
[2017-06-12] MEDS: FUROSEMIDE 40 MG TABLET PO SCH (09:21)
[2017-06-12] MEDS: ENOXAPARIN SODIUM 30 MG/0.3 ML SQ SCH (09:22)
[2017-06-12] MEDS: MUPIROCIN OINTMENT 22 GM TUBE TP SCH (11:04)
[2017-06-12] MEDS: ACETAMINOPHEN-CODEINE 300/30MG TAB PO PRN (16:46)
[2017-06-12] MEDS ORDERED: SODIUM CHLORIDE 0.9% 500ML 500 ML IV SCH (20:23)
[2017-06-12] MEDS: LOSARTAN 50 MG TABLET PO SCH (20:45)
[2017-06-12] MEDS: MORPHINE SULFATE 2 MG/ML 1ML SYG IVP PRN (21:02)
[2017-06-13 03:44] VITALS: BP 104/51
[2017-06-13] MEDS: MEROPENEM 1 GM VIAL IVP SCH ×3 (04:49→20:15)
[2017-06-13] MEDS: MORPHINE SULFATE 2 MG/ML 1ML SYG IVP PRN (05:52)
[2017-06-13] MEDS: INSULIN HUMULIN R 100 UNIT/ML 3ML SQ SCH ×4 (06:02→21:14)
[2017-06-13 07:10] VITALS: BP 107/68
[2017-06-13] MEDS: FUROSEMIDE 40 MG TABLET PO SCH (08:34)
[2017-06-13] MEDS: FAMOTIDINE 20MG TAB 20 MG TAB PO SCH (08:34)
[2017-06-13] MEDS: CLOPIDOGREL BISULFATE 75 MG TAB PO SCH (08:34)
[2017-06-13] MEDS: ATORVASTATIN CALCIUM 40 MG TABLET PO SCH (08:34)
[2017-06-13] MEDS: SPIRONOLACTONE 25 MG TAB PO SCH (08:34)
[2017-06-13] MEDS: PREGABALIN 75 MG CAPSULE PO SCH ×2 (08:35→20:15)
[2017-06-13] MEDS: ASPIRIN 81MG TAB.CHEW PO SCH (08:35)
[2017-06-13] MEDS: ENOXAPARIN SODIUM 30 MG/0.3 ML SQ SCH (08:40)
[2017-06-13] MEDS: MUPIROCIN OINTMENT 22 GM TUBE TP SCH (08:40)
[2017-06-13 11:24] VITALS: BP 96/55
[2017-06-13 16:12] VITALS: BP 86/67
[2017-06-13] MEDS: ACETAMINOPHEN-CODEINE 300/30MG TAB PO PRN ×2 (17:18→23:21)
[2017-06-13 19:31] VITALS: BP 97/42
[2017-06-13] MEDS: LOSARTAN 50 MG TABLET PO SCH (21:00)
[2017-06-13 23:21] VITALS: BP 98/49
[2017-06-14] MEDS: MEROPENEM 1 GM VIAL IVP SCH ×3 (03:50→20:03)
[2017-06-14] MEDS: ACETAMINOPHEN-CODEINE 300/30MG TAB PO PRN ×4 (03:51→21:54)
[2017-06-14 04:00] VITALS: BP 112/65
[2017-06-14 04:47] LABS: HEMATOCRIT 28.1 % (42-54); MEAN CORPUSCULAR HEMOGLOBIN 31.2 pg (27.0-33.0); MEAN CORPUSCULAR HGB CONC 33.7 g/dL (32.0-36.0); MEAN CORPUSCULAR VOLUME 92.4 fL (79-99); NUCLEATED RED BLOOD CELLS 0.1 % (0.0-0.19); PLATELET COUNT (AUTO) 456 K/uL (130-400); RED BLOOD CELL COUNT(AUTO) 3.03 MIL/uL (4.50-6.20); RED CELL DISTRIBUTION WIDTH 14.6 % (11.0-15.5); WHITE BLOOD COUNT (AUTO) 9.4 K/uL (4.8-10.8)
[2017-06-14 04:54] LABS: CREATININE 1.1 mg/dL (0.5-1.5); POTASSIUM 4.3 mmol/L (3.5-5.1)
[2017-06-14] MEDS: INSULIN HUMULIN R 100 UNIT/ML 3ML SQ SCH ×4 (05:38→21:07)
[2017-06-14] MEDS: PREGABALIN 75 MG CAPSULE PO SCH ×2 (07:08→20:25)
[2017-06-14] MEDS: ASPIRIN 81MG TAB.CHEW PO SCH (07:08)
[2017-06-14] MEDS: CLOPIDOGREL BISULFATE 75 MG TAB PO SCH (07:08)
[2017-06-14] MEDS: SPIRONOLACTONE 25 MG TAB PO SCH (07:08)
[2017-06-14] MEDS: FAMOTIDINE 20MG TAB 20 MG TAB PO SCH (07:08)
[2017-06-14] MEDS: FUROSEMIDE 40 MG TABLET PO SCH (07:08)
[2017-06-14] MEDS: ATORVASTATIN CALCIUM 40 MG TABLET PO SCH (07:09)
[2017-06-14] MEDS: MUPIROCIN OINTMENT 22 GM TUBE TP SCH (07:09)
[2017-06-14] MEDS: ENOXAPARIN SODIUM 30 MG/0.3 ML SQ SCH (07:09)
[2017-06-14 07:14] VITALS: BP 103/60
[2017-06-14 11:40] VITALS: BP 108/55
[2017-06-14 16:13] VITALS: BP 109/65
[2017-06-14 19:37] VITALS: BP 102/46
[2017-06-14] MEDS: LOSARTAN 50 MG TABLET PO SCH (20:27)
[2017-06-14 23:24] VITALS: BP 113/57
[2017-06-15 03:48] VITALS: BP 121/63
[2017-06-15] MEDS: MEROPENEM 1 GM VIAL IVP SCH ×2 (05:04→12:13)
[2017-06-15] MEDS: INSULIN HUMULIN R 100 UNIT/ML 3ML SQ SCH ×3 (06:16→16:59)
[2017-06-15 07:36] VITALS: BP 120/55
[2017-06-15] MEDS ORDERED: PHARMACY COMMUNICATION MISC SCH (08:30)
[2017-06-15] MEDS ORDERED: HONEY 1 APPL/ML TUBE TP SCH (09:00)
[2017-06-15] MEDS: SPIRONOLACTONE 25 MG TAB PO SCH (09:42)
[2017-06-15] MEDS: FAMOTIDINE 20MG TAB 20 MG TAB PO SCH (09:42)
[2017-06-15] MEDS: PREGABALIN 75 MG CAPSULE PO SCH (09:42)
[2017-06-15] MEDS: CLOPIDOGREL BISULFATE 75 MG TAB PO SCH (09:42)
[2017-06-15] MEDS: FUROSEMIDE 40 MG TABLET PO SCH (09:42)
[2017-06-15] MEDS: ASPIRIN 81MG TAB.CHEW PO SCH (09:42)
[2017-06-15] MEDS: ATORVASTATIN CALCIUM 40 MG TABLET PO SCH (09:42)
[2017-06-15] MEDS: ENOXAPARIN SODIUM 30 MG/0.3 ML SQ SCH (09:43)
[2017-06-15 11:19] VITALS: BP 105/53
[2017-06-15] MEDS: ACETAMINOPHEN-CODEINE 300/30MG TAB PO PRN (15:15)
[2017-06-15 16:13] VITALS: BP 100/52
[2017-07-07] MEDS ORDERED: ACET-2247 PO (10:13)
[2017-07-07] MEDS ORDERED: ACET1TAB12 PO (10:13)
[2017-07-07] MEDS ORDERED: FAMO20TA8 PO (10:13)
[2017-07-07] MEDS ORDERED: SANTO TP (10:13)
[2017-07-07] MEDS ORDERED: LACT10SO9 PO (10:13)
[2017-07-07] MEDS ORDERED: LOSA50TA37 PO (10:13)
[2017-07-07] MEDS ORDERED: INSU100V3 SQ (10:15)
[2017-07-11] MEDS ORDERED: SPIR25TA4 PO (10:21)
[2017-08-11] MEDS ORDERED: METOPROLOL PO (07:58)
[2017-08-11] MEDS ORDERED: TYL3 PO (08:49)
== END 2017-06-15 17:06 | DRG 853 ==
LOC: EDH 16:30 → OBSVTOIN 20:08 → EDHIP 20:08 → 3CH 23:19 → 3DH 05-28 20:05 → 2CH 05-30 09:19 → 2DH 06-07 11:02
PROVIDERS: ADMIT Family Medicine; ATTEND Family Medicine
PROC: 047C3DZ Dilation of Right Common Iliac Artery with Intraluminal Device, Percutaneous Approach (ICD-10-PCS; principal; 2017-05-27)
PROC: 047H3DZ Dilation of Right External Iliac Artery with Intraluminal Device, Percutaneous Approach (ICD-10-PCS; 2017-05-27)
PROC: B4101ZZ Fluoroscopy of Abdominal Aorta using Low Osmolar Contrast (ICD-10-PCS; 2017-05-27)
PROC: 0JBQ0ZZ Excision of Right Foot Subcutaneous Tissue and Fascia, Open Approach (ICD-10-PCS; 2017-05-27)
PROC: B41F1ZZ Fluoroscopy of Right Lower Extremity Arteries using Low Osmolar Contrast (ICD-10-PCS; 2017-05-27)
PROC: 02HV33Z Insertion of Infusion Device into Superior Vena Cava, Percutaneous Approach (ICD-10-PCS; 2017-05-27)
PROC: 0BH17EZ Insertion of Endotracheal Airway into Trachea, Via Natural or Artificial Opening (ICD-10-PCS; 2017-05-30)
PROC: 5A09457 Assistance with Respiratory Ventilation, 24-96 Consecutive Hours, Continuous Positive Airway Pressure (ICD-10-PCS; 2017-05-30)
PROC: 5A1935Z Respiratory Ventilation, Less than 24 Consecutive Hours (ICD-10-PCS; 2017-06-02)
PROC: 5A1935Z Respiratory Ventilation, Less than 24 Consecutive Hours (ICD-10-PCS; 2017-06-03)
PROC: 041K0ZL Bypass Right Femoral Artery to Popliteal Artery, Open Approach (ICD-10-PCS; 2017-06-06)
DX: A41.9 Sepsis, unspecified organism (principal); I50.43 Acute on chronic combined systolic (congestive) and diastolic (congestive) heart failure; E43 Unspecified severe protein-calorie malnutrition; G92 Toxic encephalopathy; R65.21 Severe sepsis with septic shock; R57.9 Shock, unspecified; L03.115 Cellulitis of right lower limb; I25.82 Chronic total occlusion of coronary artery; I77.4 Celiac artery compression syndrome; E11.52 Type 2 diabetes mellitus with diabetic peripheral angiopathy with gangrene; I70.92 Chronic total occlusion of artery of the extremities; L02.611 Cutaneous abscess of right foot; R64 Cachexia; N19 Unspecified kidney failure; E11.40 Type 2 diabetes mellitus with diabetic neuropathy, unspecified; L97.519 Non-pressure chronic ulcer of other part of right foot with unspecified severity; I25.5 Ischemic cardiomyopathy; I70.8 Atherosclerosis of other arteries; Z74.01 Bed confinement status; E11.621 Type 2 diabetes mellitus with foot ulcer; E11.65 Type 2 diabetes mellitus with hyperglycemia; E78.5 Hyperlipidemia, unspecified; G47.33 Obstructive sleep apnea (adult) (pediatric); I11.0 Hypertensive heart disease with heart failure; I25.10 Atherosclerotic heart disease of native coronary artery without angina pectoris; I70.203 Unspecified atherosclerosis of native arteries of extremities, bilateral legs; I99.8 Other disorder of circulatory system; J44.9 Chronic obstructive pulmonary disease, unspecified; L97.529 Non-pressure chronic ulcer of other part of left foot with unspecified severity; I25.2 Old myocardial infarction; Z72.0 Tobacco use; Z79.02 Long term (current) use of antithrombotics/antiplatelets; Z79.82 Long term (current) use of aspirin; Z79.899 Other long term (current) drug therapy; Z86.73 Personal history of transient ischemic attack (TIA), and cerebral infarction without residual deficits; Z91.19 Patient's noncompliance with other medical treatment and regimen; Z95.1 Presence of aortocoronary bypass graft; Z95.5 Presence of coronary angioplasty implant and graft; Z99.81 Dependence on supplemental oxygen
CPT/HCPCS: 31500; 36415; 36600; 37221; 37223; 71045; 75625; 75710; 80048; 80053; 80202; 81003; 82330; 82435; 82803; 82947; 82948; 83605; 83735; 83880; 84100; 84132; 84295; 85018; 85025; 85027; 85610; 85730; 87040; 87071; 87088; 87106; 87205; 93306; 93925; 93970; 94002; 94003; 94640; 94660; 97039; 99152; 99153; A4218; A4344; C1725; C1769; C1893; C1894; J0692; J1644; J1650; J1815; J1885; J1940; J1956; J2001; J2175; J2185; J2250; J2370; J2704; J2795; J3010; J3370; J3480; J3490; J7030; J7040; Q9967

== ENCOUNTER → 2017-06-22 | Outpatient (CLI) | payer OTHER, MEDICARE ==
[~2017-06-22] MED LIST changes: +ACET-2247 PO; +ACET1TAB12 PO; +AMIO400T4 PO; +AMOX-426 PO; +ASPI-1005 PO; +ATOR40TA69 PO; +FAMO20TA8 PO; +FURO20TA6 PO; +HYDR-4060 PO; +INSU100V3 SQ; +LACT10SO9 PO; +LOSA50TA37 PO; +METOPROLOL PO; +SANTO TP; +SANTYL AUTOSUB TO MEDIHONEY FOR INPT TP ONE
[2017-06-22 14:07] VITALS: BP 99/50
== END | disposition home or self-care (01) ==
LOC: WHH 10:15
PROVIDERS: ATTEND Podiatrist Foot & Ankle Surgery
DX: E11.621 Type 2 diabetes mellitus with foot ulcer (principal); I70.235 Atherosclerosis of native arteries of right leg with ulceration of other part of foot; L97.511 Non-pressure chronic ulcer of other part of right foot limited to breakdown of skin; E11.40 Type 2 diabetes mellitus with diabetic neuropathy, unspecified; E11.65 Type 2 diabetes mellitus with hyperglycemia; E11.52 Type 2 diabetes mellitus with diabetic peripheral angiopathy with gangrene; I96 Gangrene, not elsewhere classified; I11.0 Hypertensive heart disease with heart failure; I50.43 Acute on chronic combined systolic (congestive) and diastolic (congestive) heart failure; I25.10 Atherosclerotic heart disease of native coronary artery without angina pectoris; J44.9 Chronic obstructive pulmonary disease, unspecified; I25.82 Chronic total occlusion of coronary artery; E78.5 Hyperlipidemia, unspecified; I25.5 Ischemic cardiomyopathy; G47.33 Obstructive sleep apnea (adult) (pediatric); I25.2 Old myocardial infarction; E03.9 Hypothyroidism, unspecified; E43 Unspecified severe protein-calorie malnutrition; F17.210 Nicotine dependence, cigarettes, uncomplicated; Z86.73 Personal history of transient ischemic attack (TIA), and cerebral infarction without residual deficits; Z95.1 Presence of aortocoronary bypass graft; Z79.02 Long term (current) use of antithrombotics/antiplatelets; Z79.82 Long term (current) use of aspirin
CPT/HCPCS: A4450; G0463; L3260

== ENCOUNTER → 2017-06-29 | Outpatient (CLI) | payer OTHER, MEDICARE ==
[~2017-06-29] MED LIST changes: -SANTYL AUTOSUB TO MEDIHONEY FOR INPT TP ONE; -SPIR25TA4 PO; +SPIR25TA6 PO
[2017-06-29 13:50] VITALS: BP 99/47
== END | disposition home or self-care (01) ==
LOC: WHH 08:45
PROVIDERS: ATTEND Podiatrist Foot & Ankle Surgery
DX: E11.621 Type 2 diabetes mellitus with foot ulcer (principal); I70.235 Atherosclerosis of native arteries of right leg with ulceration of other part of foot; L97.511 Non-pressure chronic ulcer of other part of right foot limited to breakdown of skin; E11.40 Type 2 diabetes mellitus with diabetic neuropathy, unspecified; E11.65 Type 2 diabetes mellitus with hyperglycemia; E11.52 Type 2 diabetes mellitus with diabetic peripheral angiopathy with gangrene; I96 Gangrene, not elsewhere classified; I11.0 Hypertensive heart disease with heart failure; I50.43 Acute on chronic combined systolic (congestive) and diastolic (congestive) heart failure; I25.10 Atherosclerotic heart disease of native coronary artery without angina pectoris; J44.9 Chronic obstructive pulmonary disease, unspecified; I25.82 Chronic total occlusion of coronary artery; E78.5 Hyperlipidemia, unspecified; I25.5 Ischemic cardiomyopathy; G47.33 Obstructive sleep apnea (adult) (pediatric); I25.2 Old myocardial infarction; E03.9 Hypothyroidism, unspecified; E43 Unspecified severe protein-calorie malnutrition; F17.210 Nicotine dependence, cigarettes, uncomplicated; Z86.73 Personal history of transient ischemic attack (TIA), and cerebral infarction without residual deficits; Z95.1 Presence of aortocoronary bypass graft; Z79.02 Long term (current) use of antithrombotics/antiplatelets; Z79.82 Long term (current) use of aspirin; Z95.5 Presence of coronary angioplasty implant and graft
CPT/HCPCS: G0463

== ENCOUNTER 2017-07-11 08:54 | Day surgery (SDC) | payer OTHER, MEDICARE ==
[2017-07-07 08:53] LABS: BASOPHILS % (AUTO) 0.8 % (0.0-5.0); EOSINOPHILS % (AUTO) 6.9 % (0.0-8.0); HEMATOCRIT 33.1 % (42-54); LYMPHOCYTES % (AUTO) 28.9 % (21.0-51.0); MEAN CORPUSCULAR HEMOGLOBIN 30.7 pg (27.0-33.0); MEAN CORPUSCULAR HGB CONC 33.3 g/dL (32.0-36.0); MEAN CORPUSCULAR VOLUME 92.1 fL (79-99); MONOCYTES % (AUTO) 8.8 % (3.0-13.0); NEUTROPHILS % (AUTO) 54.6 % (40.0-77.0); PLATELET COUNT (AUTO) 339 K/uL (130-400); RED BLOOD CELL COUNT(AUTO) 3.59 MIL/uL (4.50-6.20); WHITE BLOOD COUNT (AUTO) 9.1 K/uL (4.8-10.8)
[2017-07-07 09:41] VITALS: BP 99/46
[2017-07-11] VITALS (27 sets, daily range): BP systolic 86–124; BP diastolic 43–73
[~2017-07-11] VITALS: Ht 175.3 cm; Wt 80.2 kg
[~2017-07-11 08:54] MED LIST changes: -AMIO400T4 PO; -AMOX-426 PO; -ASPI-1005 PO; -ATOR40TA69 PO; -FURO20TA6 PO; -HYDR-4060 PO; -LISI2.5T2 PO; -METOPROLOL PO; -TYL3 PO
[2017-07-11] MEDS ORDERED: SPIR25TA6 PO (10:21)
[2017-07-11] MEDS ORDERED: LIDOCAINE HCL 1% 20 ML VIAL ONE (11:09)
[2017-07-11] MEDS ORDERED: NITROGLYCERIN 5 MG/ML 10 ML VIAL IV ONE (11:09)
[2017-07-11] MEDS ORDERED: ISOVUE-300 100 ML VIAL IV ONE (11:09)
[2017-07-11] MEDS ORDERED: HEPARIN SODIUM 1000UNIT/ML 10ML VIAL ONE (11:09)
[2017-07-11] MEDS ORDERED: MIDAZOLAM HCL 1 MG/ML 2ML VIAL ONE (11:24)
[2017-07-11] MEDS ORDERED: MEPERIDINE-PF 25 MG/ML SYG ONE (11:24)
[2017-07-11] MEDS ORDERED: FENTANYL CITRATE PF 50 MCG/1 ML 2ML VIAL ONE (11:53)
[2017-07-11] MEDS ORDERED: SODIUM CHLORIDE 0.9% 1000ML 1,000 ML IV SCH (12:19)
[2017-07-11] MEDS ORDERED: ACETAMINOPHEN-CODEINE 300/30MG TAB PO PRN (12:30)
[2017-07-11] MEDS ORDERED: NITROGLYCERIN 0.4 MG SL TAB SL PRN (12:30)
[2017-07-11] MEDS ORDERED: PROTAMINE SULFATE 10 MG/ML 25ML VIAL IV ONE (12:30)
[2017-07-11] MEDS ORDERED: DEXTROSE 50%-WATER 50 ML DISP.SYRIN IV PRN (12:30)
[2017-07-11] MEDS ORDERED: GLUCAGON 1MG KIT 1 MG ML IM PRN (12:30)
[2017-07-11] MEDS ORDERED: METOPROLOL TARTRATE 1 MG/ML 5ML VIAL IV PRN (12:30)
[2017-07-11] MEDS ORDERED: ATROPINE SULFATE 0.1 MG/ML 10 ML SYG IVP ONE (15:32)
[2017-07-11] MEDS ORDERED: INSULIN HUMULIN R 100 UNIT/ML 3ML SQ SCH (16:30)
[2017-07-12] MEDS ORDERED: CLOPIDOGREL BISULFATE 75 MG TAB PO SCH (09:00)
[2017-08-11] MEDS ORDERED: METOPROLOL PO (07:58)
[2017-08-11] MEDS ORDERED: TYL3 PO (08:49)
== END 2017-07-11 19:15 | disposition home or self-care (01) ==
LOC: DAH 08:54
PROVIDERS: ATTEND Internal Medicine Cardiovascular Disease
DX: I70.211 Atherosclerosis of native arteries of extremities with intermittent claudication, right leg (principal); F17.210 Nicotine dependence, cigarettes, uncomplicated; Z83.3 Family history of diabetes mellitus; Z82.49 Family history of ischemic heart disease and other diseases of the circulatory system; Z79.82 Long term (current) use of aspirin; Z79.899 Other long term (current) drug therapy; Z79.4 Long term (current) use of insulin; Z79.01 Long term (current) use of anticoagulants; I11.0 Hypertensive heart disease with heart failure; E78.5 Hyperlipidemia, unspecified; E11.621 Type 2 diabetes mellitus with foot ulcer; I50.40 Unspecified combined systolic (congestive) and diastolic (congestive) heart failure; I42.9 Cardiomyopathy, unspecified; K21.9 Gastro-esophageal reflux disease without esophagitis; J44.9 Chronic obstructive pulmonary disease, unspecified; Z98.890 Other specified postprocedural states; L97.519 Non-pressure chronic ulcer of other part of right foot with unspecified severity
CPT/HCPCS: 36415; 37221; 75710; 82948 ×2; 85025; 85347; A4606; C1725; C1769; C1876; C1894 ×2; J1644; J2175; J2250; J2720; J3010; J3490; Q9967; 99152; 99153; J0461

== ENCOUNTER → 2017-07-13 | Outpatient (CLI) | payer OTHER, MEDICARE ==
[~2017-07-13] MED LIST changes: +AMIO400T4 PO; +AMOX-426 PO; +ASPI-1005 PO; +ATOR40TA69 PO; +FURO20TA6 PO; +HYDR-4060 PO; +METOPROLOL PO; +TYL3 PO
[2017-07-13 13:45] VITALS: BP 100/56
== END | disposition home or self-care (01) ==
LOC: WHH 09:00
PROVIDERS: ATTEND Podiatrist Foot & Ankle Surgery
DX: E11.621 Type 2 diabetes mellitus with foot ulcer (principal); I70.235 Atherosclerosis of native arteries of right leg with ulceration of other part of foot; L97.511 Non-pressure chronic ulcer of other part of right foot limited to breakdown of skin; E11.40 Type 2 diabetes mellitus with diabetic neuropathy, unspecified; E11.65 Type 2 diabetes mellitus with hyperglycemia; E11.52 Type 2 diabetes mellitus with diabetic peripheral angiopathy with gangrene; I96 Gangrene, not elsewhere classified; I11.0 Hypertensive heart disease with heart failure; I50.43 Acute on chronic combined systolic (congestive) and diastolic (congestive) heart failure; I25.10 Atherosclerotic heart disease of native coronary artery without angina pectoris; J44.9 Chronic obstructive pulmonary disease, unspecified; I25.82 Chronic total occlusion of coronary artery; E78.5 Hyperlipidemia, unspecified; I25.2 Old myocardial infarction; G47.33 Obstructive sleep apnea (adult) (pediatric); E03.9 Hypothyroidism, unspecified; E43 Unspecified severe protein-calorie malnutrition; F17.210 Nicotine dependence, cigarettes, uncomplicated; Z86.73 Personal history of transient ischemic attack (TIA), and cerebral infarction without residual deficits; Z95.1 Presence of aortocoronary bypass graft; Z79.02 Long term (current) use of antithrombotics/antiplatelets; Z79.82 Long term (current) use of aspirin; Z95.5 Presence of coronary angioplasty implant and graft
CPT/HCPCS: G0463

== ENCOUNTER 2017-07-19 07:21 | Inpatient (IN) | payer OTHER, MEDICARE ==
[~2017-07-19] VITALS: Ht 180.3 cm; Wt 81.6 kg
[2017-07-19] VITALS (18 sets, daily range): BP systolic 93–138; BP diastolic 45–70
[~2017-07-19 07:21] MED LIST changes: -AMIO400T4 PO; -AMOX-426 PO; -ASPI-1005 PO; -ATOR40TA69 PO; -FURO20TA6 PO; -HYDR-4060 PO; -METOPROLOL PO; -TYL3 PO
[2017-07-19 07:59] LABS: BASOPHILS % (AUTO) 0.4 % (0.0-5.0); EOSINOPHILS % (AUTO) 5.5 % (0.0-8.0); HEMATOCRIT 33.4 % (42-54); LYMPHOCYTES % (AUTO) 17.5 % (21.0-51.0); MEAN CORPUSCULAR HEMOGLOBIN 31.3 pg (27.0-33.0); MEAN CORPUSCULAR HGB CONC 33.5 g/dL (32.0-36.0); MEAN CORPUSCULAR VOLUME 93.5 fL (79-99); MONOCYTES % (AUTO) 5.6 % (3.0-13.0); PLATELET COUNT (AUTO) 327 K/uL (130-400); RED BLOOD CELL COUNT(AUTO) 3.58 MIL/uL (4.50-6.20); RED CELL DISTRIBUTION WIDTH 16.8 % (11.0-15.5); WHITE BLOOD COUNT (AUTO) 12.3 K/uL (4.8-10.8)
[2017-07-19 08:02] LABS: CARBON DIOXIDE 24 mmol/L (21-32); CHLORIDE 106 mmol/L (101-111); CREATININE 1.1 mg/dL (0.5-1.5); GLOMERULAR FILTR. RATE CALC 70 mL/min (>60); GLUCOSE,RANDOM 214 mg/dL (70-105); POTASSIUM 3.8 mmol/L (3.5-5.1); SODIUM SERUM 142 mmol/L (136-145); UREA NITROGEN, BLOOD 14 mg/dL (7-18)
[2017-07-19 08:17] LABS: ALANINE AMINOTRANSFERASE 26 U/L (12-78); ALBUMIN 3.1 g/dL (3.5-5.0); ASPARTATE AMINOTRANSFERASE 20 U/L (10-37); BILIRUBIN,TOTAL 0.3 mg/dL (0.2-1.0); CREATINE KINASE MB 1.3 ng/mL (0.5-3.6); CREATINE KINASE, TOTAL 43 U/L (21-232); MYOGLOBIN 41 ng/mL (10-92); TOTAL PROTEIN, SERUM 7.2 g/dL (6.0-8.3); TROPONIN I < 0.04 ng/mL (0.00-0.06)
[2017-07-19 08:18] LABS: INR 1.02 (0.85-1.15); PARTIAL THROMBOPLASTIN TIME 26.4 SEC (26.3-35.5); PROTHROMBIN TIME 10.7 SEC (9.6-11.6)
[2017-07-19] MEDS ORDERED: NITROGLYCERIN 0.4 MG SL TAB SL ONE (09:26)
[2017-07-19] MEDS ORDERED: FUROSEMIDE 10 MG/ML 4ML VIAL ONE (09:26)
[2017-07-19] MEDS ORDERED: NITROGLYCERIN 1GM/1 INCH PACKET TD ONE (09:32)
[2017-07-19 09:55] LABS: ABG BASE EXCESS -6.7 mmol/L (-2.0-3.0); ABG HCO3 21.5 mmol/L (21.0-28.0); ABG OXYGEN SATURATION 99.3 % (95.0-99.0); ABG PCO2 54 mmHg (35-48)
[2017-07-19 10:49] LABS: ABG HCO3 22.3 mmol/L (21.0-28.0); ABG OXYGEN SATURATION 99.8 % (95.0-99.0); ABG PCO2 67 mmHg (35-48)
[2017-07-19] MEDS ORDERED: ONDANSETRON HCL MDV 20ML 2 MG/ML VIAL ONE (11:08)
[2017-07-19] MEDS ORDERED: PROPOFOL 1000 MG/100 ML 100 ML IV ONE ×2 (11:14→16:38)
[2017-07-19 12:00] LABS: APPEARANCE,URINE Clear (CLEAR); BILIRUBIN,URINE Negative (NEGATIVE); COLOR,URINE Yellow (YELLOW); GLUCOSE, URINE (UA) Negative (NEGATIVE); KETONES,URINE Negative (NEGATIVE); LEUKOCYTE ESTERASE ,URINE Negative (NEGATIVE); NITRATE,URINE Negative (NEGATIVE); OCCULT BLOOD,URINE Negative (NEGATIVE); PROTEIN,URINE POS 1+ (NEGATIVE); UROBILINOGEN,URINE 0.2 mg/dL (0.2-1.0)
[2017-07-19] MEDS ORDERED: ROCURONIUM BROMIDE 10MG/1ML 5ML VL IV ONE (12:00)
[2017-07-19] MEDS ORDERED: ETOMIDATE 2 MG/ML 10 ML VIAL IVP ONE (12:00)
[2017-07-19 12:16] LABS: ABG BASE EXCESS -3.1 mmol/L (-2.0-3.0); ABG HCO3 23.5 mmol/L (21.0-28.0); ABG OXYGEN SATURATION 91.5 % (95.0-99.0); ABG PCO2 48 mmHg (35-48)
[2017-07-19 12:18] LABS: BACTERIA,URINE None Seen /HPF (None Seen); RBC,URINE None Seen /HPF (0-1); SQUAMOUS EPITHELIAL CELL,UR Rare /HPF (0-2); WBC,URINE None Seen /HPF (0-1)
[2017-07-19] MEDS ORDERED: MORPHINE SULFATE 2 MG/ML 1ML SYG IV PRN (12:30)
[2017-07-19] MEDS ORDERED: ACETAMINOPHEN 325 MG TAB PO PRN ×2 (12:30)
[2017-07-19] MEDS ORDERED: HYDRALAZINE HCL 20 MG/ML VIAL IV PRN (12:30)
[2017-07-19] MEDS ORDERED: MAG HYDROX/AL HYDROX/SIMETH ES 30 ML SUSP UDCUP PO PRN (12:30)
[2017-07-19] MEDS ORDERED: POTASSIUM CHLORIDE 10% ELIXIR 20 MEQ/15 ML UDCUP PO PRN (12:30)
[2017-07-19] MEDS ORDERED: MORPHINE SULFATE 4 MG/1ML SYG IV PRN (12:30)
[2017-07-19] MEDS ORDERED: ONDANSETRON HCL MDV 20ML 2 MG/ML VIAL IV PRN (12:30)
[2017-07-19] MEDS ORDERED: FUROSEMIDE 10 MG/ML 4ML VIAL IVP SCH (12:30)
[2017-07-19] MEDS ORDERED: LACTULOSE 20 GM/30 ML UDCUP PO PRN (12:30)
[2017-07-19] MEDS ORDERED: GUAIFENESIN-DM 200/20 MG 10 ML PO PRN (12:30)
[2017-07-19] MEDS ORDERED: NITROGLYCERIN 0.4 MG SL TAB SL PRN (12:30)
[2017-07-19] MEDS ORDERED: IPRATROPIUM/ALBUTEROL SULFATE 3 ML SOLUTION IH PRN (12:45)
[2017-07-19] MEDS ORDERED: NOREPINEPHRINE BITARTRATE 1 MG/1 ML ML IV ONE (13:09)
[2017-07-19] MEDS ORDERED: VANCOMYCIN PROTOCOL PER PHARMACY IV PRN (13:45)
[2017-07-19] MEDS ORDERED: VANCOMYCIN 1GM+NS 250ML 250 ML IV SCH (13:45)
[2017-07-19] MEDS: ASPIRIN 325MG EC TAB 325 MG TABLET.DR PO SCH (14:00)
[2017-07-19] MEDS: LEVOFLOXACIN 500 MG/D5W 100 ML 100 ML IV SCH (14:51)
[2017-07-19] MEDS ORDERED: VANCOMYCIN 1.5 GM in SODIUM CHLORIDE 0.9% 250 ML IV ONE (15:00)
[2017-07-19 15:14] LABS: CREATINE KINASE MB 12.2 ng/mL (0.5-3.6)
[2017-07-19 15:16] LABS: TROPONIN I 1.56 ng/mL (0.00-0.06)
[2017-07-19] MEDS: INSULIN HUMULIN R 100 UNIT/ML 3ML SQ SCH ×2 (16:30→21:00)
[2017-07-19] MEDS ORDERED: NOREPINEPHRINE 4MG/NS 250ML 250 ML IV SCH (16:45)
[2017-07-19] MEDS: IPRATROPIUM/ALBUTEROL SULFATE 3 ML SOLUTION IH SCH ×2 (18:39→23:28)
[2017-07-19] MEDS: FUROSEMIDE 10 MG/ML 4ML VIAL IVP SCH (20:26)
[2017-07-19] MEDS: PROPOFOL 1000 MG/100 ML IV PRN (20:27)
[2017-07-19] MEDS: POTASSIUM CHLORIDE 20MEQ/100ML 100 ML IV PRN (20:42)
[2017-07-19] MEDS: LIDOCAINE HCL-MPF 1% 2ML VIAL IVP PRN (20:42)
[2017-07-19] MEDS ORDERED: METOPROLOL TARTRATE 25 MG TAB PO SCH (21:00)
[2017-07-19 22:25] LABS: CREATINE KINASE MB 11.4 ng/mL (0.5-3.6)
[2017-07-19 22:27] LABS: TROPONIN I 3.02 ng/mL (0.00-0.06)
[2017-07-19] MEDS ORDERED: MAGNESIUM 2GM PREMIX 50ML 50 ML IV PRN (23:15)
[2017-07-20] VITALS (25 sets, daily range): BP systolic 81–132; BP diastolic 30–100
[2017-07-20] MEDS: PROPOFOL 1000 MG/100 ML IV PRN ×4 (00:25→10:12)
[2017-07-20 00:45] LABS: MAGNESIUM 1.6 mg/dL (1.80-2.40); POTASSIUM 3.8 mmol/L (3.5-5.1)
[2017-07-20] MEDS: LIDOCAINE HCL-MPF 1% 2ML VIAL IVP PRN (00:53)
[2017-07-20] MEDS: POTASSIUM CHLORIDE 20MEQ/100ML 100 ML IV PRN (00:53)
[2017-07-20] MEDS: VANCOMYCIN 1GM+NS 250ML 250 ML IV SCH ×2 (03:15→15:46)
[2017-07-20 04:20] LABS: ABG BASE EXCESS 1.5 mmol/L (-2.0-3.0); ABG HCO3 23.4 mmol/L (21.0-28.0); ABG OXYGEN SATURATION 99.8 % (95.0-99.0); ABG PCO2 30 mmHg (35-48)
[2017-07-20 05:16] LABS: HEMATOCRIT 31.2 % (42-54); MEAN CORPUSCULAR HGB CONC 33.8 g/dL (32.0-36.0); MEAN CORPUSCULAR VOLUME 91.6 fL (79-99); PLATELET COUNT (AUTO) 327 K/uL (130-400); RED CELL DISTRIBUTION WIDTH 16.1 % (11.0-15.5); WHITE BLOOD COUNT (AUTO) 10.3 K/uL (4.8-10.8)
[2017-07-20 05:32] LABS: BAND NEUTROPHILS % (MANUAL) 1 % (0-2); EOSINOPHILS % (MANUAL) 3 % (1-6); LYMPHOCYTES % (MANUAL) 19 % (22-44); MAN.DIFF COMMENT-IMPRESSION MANUAL DIFFERENTIAL; MONOCYTES % (MANUAL) 5 % (2-9); SEGMENTED NEUTROPHILS % 72 % (40-70)
[2017-07-20 05:33] LABS: ALBUMIN 2.5 g/dL (3.5-5.0); BILIRUBIN,TOTAL 0.4 mg/dL (0.2-1.0); CREATININE 1.3 mg/dL (0.5-1.5); PLATELET MORPHOLOGY COMMENT ADEQUATE; POTASSIUM 4.3 mmol/L (3.5-5.1); TOTAL PROTEIN, SERUM 6.6 g/dL (6.0-8.3)
[2017-07-20] MEDS: INSULIN HUMULIN R 100 UNIT/ML 3ML SQ SCH ×4 (06:15→21:00)
[2017-07-20] MEDS: IPRATROPIUM/ALBUTEROL SULFATE 3 ML SOLUTION IH SCH ×3 (06:47→18:39)
[2017-07-20] MEDS ORDERED: ENOXAPARIN SODIUM 40 MG/0.4 ML SYRINGE SQ SCH (09:00)
[2017-07-20] MEDS ORDERED: ENOXAPARIN SODIUM 1 MG/KG SQ SCH (09:00)
[2017-07-20] MEDS: ASPIRIN 325MG EC TAB 325 MG TABLET.DR PO SCH (09:15)
[2017-07-20] MEDS: FUROSEMIDE 10 MG/ML 4ML VIAL IVP SCH ×2 (09:15→21:02)
[2017-07-20] MEDS: FAMOTIDINE/PF 20 MG/2 ML VIAL IV SCH (09:15)
[2017-07-20] MEDS: ENOXAPARIN SODIUM 80 MG/0.8 ML SQ SCH ×2 (09:16→21:03)
[2017-07-20 13:38] LABS: ABG HCO3 21.9 mmol/L (21.0-28.0); ABG PCO2 32 mmHg (35-48)
[2017-07-20] MEDS: LEVOFLOXACIN 500 MG/D5W 100 ML 100 ML IV SCH (13:44)
[2017-07-20] MEDS: ACETAMINOPHEN-CODEINE 300/30MG TAB PO PRN (19:11)
[2017-07-20] MEDS: ATORVASTATIN CALCIUM 40 MG TABLET PO SCH (21:01)
[2017-07-21] VITALS (14 sets, daily range): BP systolic 97–121; BP diastolic 48–88
[2017-07-21] MEDS: ACETAMINOPHEN-CODEINE 300/30MG TAB PO PRN ×3 (00:19→13:54)
[2017-07-21] MEDS: IPRATROPIUM 0.5 MG/2.5 ML INH IH SCH ×5 (00:26→23:16)
[2017-07-21] MEDS: VANCOMYCIN 1GM+NS 250ML 250 ML IV SCH ×2 (02:22→15:25)
[2017-07-21 05:27] LABS: HEMATOCRIT 28.9 % (42-54); MEAN CORPUSCULAR HEMOGLOBIN 32.5 pg (27.0-33.0); MEAN CORPUSCULAR HGB CONC 34.9 g/dL (32.0-36.0); MEAN CORPUSCULAR VOLUME 93.2 fL (79-99); NUCLEATED RED BLOOD CELLS 0.1 % (0.0-0.19); PLATELET COUNT (AUTO) 291 K/uL (130-400); RED BLOOD CELL COUNT(AUTO) 3.11 MIL/uL (4.50-6.20); RED CELL DISTRIBUTION WIDTH 16.1 % (11.0-15.5); WHITE BLOOD COUNT (AUTO) 9.7 K/uL (4.8-10.8)
[2017-07-21 05:37] LABS: BASOPHILS % (MANUAL) 2 % (0-2); EOSINOPHILS % (MANUAL) 4 % (1-6); LYMPHOCYTES % (MANUAL) 24 % (22-44); MONOCYTES % (MANUAL) 14 % (2-9); SEGMENTED NEUTROPHILS % 56 % (40-70)
[2017-07-21 05:38] LABS: MAN.DIFF COMMENT-IMPRESSION MANUAL DIFFERENTIAL; PLATELET MORPHOLOGY COMMENT ADEQUATE
[2017-07-21 05:43] LABS: ALBUMIN 2.4 g/dL (3.5-5.0); BILIRUBIN,TOTAL 0.5 mg/dL (0.2-1.0); CREATININE 1.3 mg/dL (0.5-1.5); PHOSPHORUS 4.2 mg/dL (2.5-4.9); POTASSIUM 3.6 mmol/L (3.5-5.1); TOTAL PROTEIN, SERUM 6.3 g/dL (6.0-8.3)
[2017-07-21 05:46] LABS: B-TYPE NATRIURETIC PEPTIDE 504 pg/mL (0-100)
[2017-07-21] MEDS: INSULIN HUMULIN R 100 UNIT/ML 3ML SQ SCH ×4 (05:56→21:00)
[2017-07-21] MEDS: FAMOTIDINE/PF 20 MG/2 ML VIAL IV SCH (08:12)
[2017-07-21] MEDS: PREGABALIN 25 MG CAP PO SCH ×2 (08:12→22:39)
[2017-07-21] MEDS: CLOPIDOGREL BISULFATE 75 MG TAB PO SCH (08:12)
[2017-07-21] MEDS: FUROSEMIDE 10 MG/ML 4ML VIAL IVP SCH ×2 (08:13→22:38)
[2017-07-21] MEDS: ENOXAPARIN SODIUM 80 MG/0.8 ML SQ SCH ×2 (08:13→22:39)
[2017-07-21] MEDS: ASPIRIN 81MG TAB.CHEW PO SCH (08:13)
[2017-07-21] MEDS: LEVOFLOXACIN 500 MG/D5W 100 ML 100 ML IV SCH (13:52)
[2017-07-21] MEDS: ATORVASTATIN CALCIUM 40 MG TABLET PO SCH (22:39)
[2017-07-22] MEDS: VANCOMYCIN 1GM+NS 250ML 250 ML IV SCH ×2 (03:16→15:42)
[2017-07-22 03:27] VITALS: BP 99/51
[2017-07-22 03:51] LABS: MEAN CORPUSCULAR HGB CONC 33.4 g/dL (32.0-36.0); MEAN CORPUSCULAR VOLUME 92.7 fL (79-99); PLATELET COUNT (AUTO) 274 K/uL (130-400); RED BLOOD CELL COUNT(AUTO) 3.24 MIL/uL (4.50-6.20); RED CELL DISTRIBUTION WIDTH 16.4 % (11.0-15.5); WHITE BLOOD COUNT (AUTO) 8.4 K/uL (4.8-10.8)
[2017-07-22 04:17] LABS: CREATININE 1.3 mg/dL (0.5-1.5); MAGNESIUM 2.1 mg/dL (1.80-2.40); PHOSPHORUS 3.6 mg/dL (2.5-4.9); POTASSIUM 3.8 mmol/L (3.5-5.1)
[2017-07-22] MEDS: IPRATROPIUM 0.5 MG/2.5 ML INH IH SCH ×4 (05:51→23:51)
[2017-07-22] MEDS: INSULIN HUMULIN R 100 UNIT/ML 3ML SQ SCH ×4 (06:12→21:00)
[2017-07-22] MEDS: ACETAMINOPHEN-CODEINE 300/30MG TAB PO PRN (06:48)
[2017-07-22 07:28] VITALS: BP 114/65
[2017-07-22] MEDS: FUROSEMIDE 40 MG TABLET PO SCH ×2 (09:00→16:08)
[2017-07-22] MEDS: ASPIRIN 81MG TAB.CHEW PO SCH (09:34)
[2017-07-22] MEDS: FUROSEMIDE 10 MG/ML 4ML VIAL IVP SCH (09:34)
[2017-07-22] MEDS: CLOPIDOGREL BISULFATE 75 MG TAB PO SCH (09:34)
[2017-07-22] MEDS: FAMOTIDINE/PF 20 MG/2 ML VIAL IV SCH (09:34)
[2017-07-22] MEDS: PREGABALIN 25 MG CAP PO SCH ×2 (09:34→21:47)
[2017-07-22] MEDS: ENOXAPARIN SODIUM 80 MG/0.8 ML SQ SCH ×2 (09:35→21:48)
[2017-07-22] MEDS: CARVEDILOL 3.125 MG TABLET PO SCH ×2 (09:37→21:46)
[2017-07-22 11:07] VITALS: BP 104/54
[2017-07-22] MEDS: LEVOFLOXACIN 500 MG/D5W 100 ML 100 ML IV SCH (15:43)
[2017-07-22 16:07] VITALS: BP 109/41
[2017-07-22] MEDS: POTASSIUM CHLORIDE 20 MEQ ERTAB PO PRN ×2 (16:08→17:07)
[2017-07-22 19:16] VITALS: BP 112/65
[2017-07-22] MEDS: ATORVASTATIN CALCIUM 40 MG TABLET PO SCH (21:46)
[2017-07-22 23:46] VITALS: BP 109/58
[2017-07-23] MEDS: ACETAMINOPHEN-CODEINE 300/30MG TAB PO PRN ×2 (00:25→06:04)
[2017-07-23 03:40] VITALS: BP 112/60
[2017-07-23] MEDS: VANCOMYCIN 1GM+NS 250ML 250 ML IV SCH (04:19)
[2017-07-23 04:33] LABS: MEAN CORPUSCULAR HEMOGLOBIN 31.4 pg (27.0-33.0); MEAN CORPUSCULAR HGB CONC 34.4 g/dL (32.0-36.0); MEAN CORPUSCULAR VOLUME 91.3 fL (79-99); NUCLEATED RED BLOOD CELLS 0.1 % (0.0-0.19); PLATELET COUNT (AUTO) 369 K/uL (130-400); RED BLOOD CELL COUNT(AUTO) 3.73 MIL/uL (4.50-6.20); RED CELL DISTRIBUTION WIDTH 16.3 % (11.0-15.5); WHITE BLOOD COUNT (AUTO) 10.3 K/uL (4.8-10.8)
[2017-07-23 04:38] LABS: CREATININE 1.5 mg/dL (0.5-1.5)
[2017-07-23 04:49] LABS: B-TYPE NATRIURETIC PEPTIDE 701 pg/mL (0-100)
[2017-07-23 04:55] LABS: BAND NEUTROPHILS % (MANUAL) 14 % (0-2); BASOPHILS % (MANUAL) 4 % (0-2); EOSINOPHILS % (MANUAL) 2 % (1-6); LYMPHOCYTES % (MANUAL) 20 % (22-44); MAN.DIFF COMMENT-IMPRESSION MANUAL DIFFERENTIAL; MONOCYTES % (MANUAL) 3 % (2-9); SEGMENTED NEUTROPHILS % 57 % (40-70)
[2017-07-23 04:56] LABS: PLATELET MORPHOLOGY COMMENT ADEQUATE
[2017-07-23] MEDS: INSULIN HUMULIN R 100 UNIT/ML 3ML SQ SCH ×2 (06:06→11:30)
[2017-07-23] MEDS: IPRATROPIUM 0.5 MG/2.5 ML INH IH SCH ×2 (06:36→11:18)
[2017-07-23 07:26] VITALS: BP 113/59
[2017-07-23] MEDS ORDERED: AMOX-426 PO (08:24)
[2017-07-23] MEDS ORDERED: ASPI-1005 PO (08:28)
[2017-07-23] MEDS ORDERED: ATOR40TA69 PO (08:29)
[2017-07-23 08:51] VITALS: BP 113/59
[2017-07-23] MEDS: CARVEDILOL 3.125 MG TABLET PO SCH (08:51)
[2017-07-23] MEDS: ASPIRIN 81MG TAB.CHEW PO SCH (08:51)
[2017-07-23] MEDS: PREGABALIN 25 MG CAP PO SCH (08:51)
[2017-07-23] MEDS: CLOPIDOGREL BISULFATE 75 MG TAB PO SCH (08:51)
[2017-07-23] MEDS: FAMOTIDINE/PF 20 MG/2 ML VIAL IV SCH (08:52)
[2017-07-23] MEDS: FUROSEMIDE 40 MG TABLET PO SCH (08:52)
[2017-07-23] MEDS ORDERED: SPIRONOLACTONE 25 MG TAB PO SCH (09:00)
[2017-07-23] MEDS ORDERED: ENOXAPARIN SODIUM 30 MG/0.3 ML SQ SCH (09:00)
[2017-07-23] MEDS ORDERED: LOSARTAN 50 MG TABLET PO SCH (21:00)
[2017-08-11] MEDS ORDERED: METOPROLOL PO (07:58)
[2017-08-11] MEDS ORDERED: TYL3 PO (08:49)
== END 2017-07-23 11:55 | disposition home or self-care (01) | DRG 871 ==
LOC: EDH 07:21 → EDHIP 10:55 → 2CH 13:57 → 2DH 07-21 15:00
PROVIDERS: ADMIT Internal Medicine; ATTEND Internal Medicine
PROC: 5A1935Z Respiratory Ventilation, Less than 24 Consecutive Hours (ICD-10-PCS; 2017-07-19)
PROC: 0BH17EZ Insertion of Endotracheal Airway into Trachea, Via Natural or Artificial Opening (ICD-10-PCS; 2017-07-19)
PROC: 5A1935Z Respiratory Ventilation, Less than 24 Consecutive Hours (ICD-10-PCS; principal; 2017-07-20)
DX: A41.9 Sepsis, unspecified organism (principal); I21.4 Non-ST elevation (NSTEMI) myocardial infarction; J96.01 Acute respiratory failure with hypoxia; J96.02 Acute respiratory failure with hypercapnia; R65.21 Severe sepsis with septic shock; I50.43 Acute on chronic combined systolic (congestive) and diastolic (congestive) heart failure; R57.0 Cardiogenic shock; E11.52 Type 2 diabetes mellitus with diabetic peripheral angiopathy with gangrene; D64.9 Anemia, unspecified; E11.40 Type 2 diabetes mellitus with diabetic neuropathy, unspecified; E11.621 Type 2 diabetes mellitus with foot ulcer; E78.5 Hyperlipidemia, unspecified; G47.33 Obstructive sleep apnea (adult) (pediatric); I11.0 Hypertensive heart disease with heart failure; I25.10 Atherosclerotic heart disease of native coronary artery without angina pectoris; I25.5 Ischemic cardiomyopathy; J44.9 Chronic obstructive pulmonary disease, unspecified; L97.519 Non-pressure chronic ulcer of other part of right foot with unspecified severity; L97.529 Non-pressure chronic ulcer of other part of left foot with unspecified severity; I25.2 Old myocardial infarction; Z72.0 Tobacco use; Z79.02 Long term (current) use of antithrombotics/antiplatelets; Z79.82 Long term (current) use of aspirin; Z79.899 Other long term (current) drug therapy; Z95.5 Presence of coronary angioplasty implant and graft; Z91.19 Patient's noncompliance with other medical treatment and regimen; Z83.3 Family history of diabetes mellitus
CPT/HCPCS: 31500; 36415; 36600; 71045; 80048; 80053; 80202; 81001; 82330; 82435; 82550; 82553; 82803; 82947; 82948; 83605; 83735; 83874; 83880; 84100; 84132; 84295; 84484; 85018; 85025; 85027; 85610; 85730; 87040; 87071; 87088; 87205; 93005; 93925; 93970; 94002; 94003; 94640; 94660; 94664; 99291; J1650; J1815; J1940; J1956; J2704; J3370; J3475; J3480; J3490; J7030

== ENCOUNTER → 2017-07-27 | Outpatient (CLI) | payer OTHER, MEDICARE ==
[~2017-07-27] MED LIST changes: -ACET-2247 PO; -ACET1TAB12 PO; +AMIO400T4 PO; +AMOX-426 PO; +ASPI-1005 PO; -ASPI-1197 PO; +ATOR40TA69 PO; -ATOR40TA71 PO; +FURO20TA6 PO; +HYDR-4060 PO; -INSU100V3 SQ; -LACT10SO9 PO; +LIDOCAINE/PRILOCAINE CREAM 5GM TUBE TP ONE; +METOPROLOL PO; +TYL3 PO
[2017-07-27 14:20] VITALS: BP 100/41
== END | disposition home or self-care (01) ==
LOC: WHH 09:45
PROVIDERS: ATTEND Podiatrist Foot & Ankle Surgery
DX: E11.621 Type 2 diabetes mellitus with foot ulcer (principal); I70.235 Atherosclerosis of native arteries of right leg with ulceration of other part of foot; L97.511 Non-pressure chronic ulcer of other part of right foot limited to breakdown of skin; E11.40 Type 2 diabetes mellitus with diabetic neuropathy, unspecified; E11.65 Type 2 diabetes mellitus with hyperglycemia; E11.52 Type 2 diabetes mellitus with diabetic peripheral angiopathy with gangrene; I96 Gangrene, not elsewhere classified; I11.0 Hypertensive heart disease with heart failure; I50.43 Acute on chronic combined systolic (congestive) and diastolic (congestive) heart failure; I25.10 Atherosclerotic heart disease of native coronary artery without angina pectoris; J44.9 Chronic obstructive pulmonary disease, unspecified; I25.82 Chronic total occlusion of coronary artery; E78.4 Other hyperlipidemia; I25.2 Old myocardial infarction; G47.33 Obstructive sleep apnea (adult) (pediatric); E03.9 Hypothyroidism, unspecified; E43 Unspecified severe protein-calorie malnutrition; F17.210 Nicotine dependence, cigarettes, uncomplicated; Z86.73 Personal history of transient ischemic attack (TIA), and cerebral infarction without residual deficits; Z95.1 Presence of aortocoronary bypass graft; Z79.02 Long term (current) use of antithrombotics/antiplatelets; Z79.82 Long term (current) use of aspirin; Z95.5 Presence of coronary angioplasty implant and graft; Z79.01 Long term (current) use of anticoagulants; Z79.4 Long term (current) use of insulin
CPT/HCPCS: 11042; 11045; A6209; J3490; L3260

== ENCOUNTER → 2017-08-10 | Outpatient (CLI) | payer OTHER, MEDICARE ==
[~2017-08-10] MED LIST changes: -AMOX-426 PO; -FAMO20TA8 PO; -LIDOCAINE/PRILOCAINE CREAM 5GM TUBE TP ONE; -LOSA50TA37 PO; +SANTYL AUTOSUB TO MEDIHONEY FOR INPT TP ONE
[2017-08-10 13:48] VITALS: BP 116/51
== END | disposition home or self-care (01) ==
LOC: WHH 10:00
PROVIDERS: ATTEND Podiatrist Foot & Ankle Surgery
DX: E11.621 Type 2 diabetes mellitus with foot ulcer (principal); I70.235 Atherosclerosis of native arteries of right leg with ulceration of other part of foot; L97.511 Non-pressure chronic ulcer of other part of right foot limited to breakdown of skin; I70.245 Atherosclerosis of native arteries of left leg with ulceration of other part of foot; L97.521 Non-pressure chronic ulcer of other part of left foot limited to breakdown of skin; E11.40 Type 2 diabetes mellitus with diabetic neuropathy, unspecified; E11.65 Type 2 diabetes mellitus with hyperglycemia; E11.52 Type 2 diabetes mellitus with diabetic peripheral angiopathy with gangrene; I96 Gangrene, not elsewhere classified; I11.0 Hypertensive heart disease with heart failure; I50.43 Acute on chronic combined systolic (congestive) and diastolic (congestive) heart failure; I25.10 Atherosclerotic heart disease of native coronary artery without angina pectoris; J44.9 Chronic obstructive pulmonary disease, unspecified; I25.82 Chronic total occlusion of coronary artery; E78.4 Other hyperlipidemia; I25.2 Old myocardial infarction; G47.33 Obstructive sleep apnea (adult) (pediatric); E03.9 Hypothyroidism, unspecified; E43 Unspecified severe protein-calorie malnutrition; F17.210 Nicotine dependence, cigarettes, uncomplicated; Z86.73 Personal history of transient ischemic attack (TIA), and cerebral infarction without residual deficits; Z95.1 Presence of aortocoronary bypass graft; Z79.02 Long term (current) use of antithrombotics/antiplatelets; Z79.82 Long term (current) use of aspirin; Z95.5 Presence of coronary angioplasty implant and graft; Z79.01 Long term (current) use of anticoagulants; Z79.4 Long term (current) use of insulin
CPT/HCPCS: 11042; A6209; G0463

== ENCOUNTER 2017-08-11 05:59 | Observation (INO) | payer OTHER, MEDICARE ==
[2017-08-09 12:09] VITALS: BP 96/47
[2017-08-09 12:57] LABS: BASOPHILS % (AUTO) 0.7 % (0.0-5.0); EOSINOPHILS % (AUTO) 7.2 % (0.0-8.0); HEMATOCRIT 32.5 % (42-54); LYMPHOCYTES % (AUTO) 29.4 % (21.0-51.0); MEAN CORPUSCULAR HEMOGLOBIN 30.6 pg (27.0-33.0); MEAN CORPUSCULAR HGB CONC 33.2 g/dL (32.0-36.0); MONOCYTES % (AUTO) 6.6 % (3.0-13.0); NEUTROPHILS % (AUTO) 56.1 % (40.0-77.0); NUCLEATED RED BLOOD CELLS 0.1 % (0.0-0.19); PLATELET COUNT (AUTO) 273 K/uL (130-400); RED BLOOD CELL COUNT(AUTO) 3.53 MIL/uL (4.50-6.20); RED CELL DISTRIBUTION WIDTH 16.2 % (11.0-15.5); WHITE BLOOD COUNT (AUTO) 7.7 K/uL (4.8-10.8)
[2017-08-09 13:10] LABS: CREATININE 1.3 mg/dL (0.5-1.5); INR 1.01 (0.85-1.15); PARTIAL THROMBOPLASTIN TIME 27.5 SEC (26.3-35.5); POTASSIUM 3.8 mmol/L (3.5-5.1); PROTHROMBIN TIME 10.6 SEC (9.6-11.6)
[~2017-08-11] VITALS: Ht 180.3 cm; Wt 84.1 kg
[2017-08-11] VITALS (10 sets, daily range): BP systolic 110–142; BP diastolic 55–67
[~2017-08-11 05:59] MED LIST changes: -AMIO400T4 PO; -FURO20TA6 PO; -HYDR-4060 PO; -METOPROLOL PO; -SANTYL AUTOSUB TO MEDIHONEY FOR INPT TP ONE; -TYL3 PO
[2017-08-11] MEDS ORDERED: CEFAZOLIN SODIUM 1 GM VIAL IVP SCH (06:00)
[2017-08-11] MEDS ORDERED: METOPROLOL PO ×2 (07:58)
[2017-08-11] MEDS ORDERED: TYL3 PO ×2 (08:49)
[2017-08-11] MEDS ORDERED: CEFAZOLIN SODIUM 1 GM VIAL ONE (09:10)
[2017-08-11] MEDS ORDERED: BUPIVACAINE/PF 0.25% 30ML VIAL IJ ONE (09:10)
[2017-08-11] MEDS ORDERED: ISOVUE-300 100 ML VIAL IV ONE (09:11)
[2017-08-11] MEDS ORDERED: LIDOCAINE HCL 1% MDV 50ML VIAL ONE (09:11)
[2017-08-11] MEDS ORDERED: VANCOMYCIN 1GM+NS 250ML 250 ML IV ONE ×2 (09:13→09:14)
[2017-08-11] MEDS ORDERED: MEPERIDINE-PF 25 MG/ML SYG ONE (09:36)
[2017-08-11] MEDS ORDERED: MIDAZOLAM HCL 1 MG/ML 2ML VIAL ONE ×2 (09:36→09:51)
[2017-08-11] MEDS ORDERED: MEPERIDINE-PF 50 MG/ML SYG ONE (09:51)
[2017-08-11] MEDS ORDERED: ACETAMINOPHEN-CODEINE 300/30MG TAB PO PRN ×2 (10:45)
[2017-08-11] MEDS ORDERED: ACETAMINOPHEN 325 MG TAB PO PRN (10:45)
[2017-08-11] MEDS: METFORMIN HCL 500 MG TABLET PO SCH ×2 (20:21→20:25)
[2017-08-11] MEDS: FUROSEMIDE 40 MG TABLET PO SCH (20:22)
[2017-08-11] MEDS: METOPROLOL TARTRATE 25 MG TAB PO SCH (20:22)
[2017-08-11] MEDS: PREGABALIN 25 MG CAP PO SCH (20:22)
[2017-08-11] MEDS ORDERED: ATORVASTATIN CALCIUM 40 MG TABLET PO SCH (21:00)
[2017-08-11] MEDS ORDERED: ACETAMINOPHEN-CODEINE 300/30MG TAB PO SCH (21:00)
[2017-08-12 00:30] VITALS: BP 135/84
[2017-08-12] MEDS ORDERED: LIDOCAINE HCL-MPF 1% 2ML VIAL IVP PRN (01:00)
[2017-08-12] MEDS ORDERED: POTASSIUM CHLORIDE 20 MEQ ERTAB PO PRN (01:00)
[2017-08-12] MEDS ORDERED: POTASSIUM CHLORIDE 20MEQ/100ML 100 ML IV PRN (01:00)
[2017-08-12] MEDS ORDERED: POTASSIUM CHLORIDE 10% ELIXIR 20 MEQ/15 ML UDCUP PO PRN (01:00)
[2017-08-12 03:47] LABS: HEMATOCRIT 31.1 % (42-54); MEAN CORPUSCULAR HEMOGLOBIN 32.1 pg (27.0-33.0); MEAN CORPUSCULAR HGB CONC 35.2 g/dL (32.0-36.0); MEAN CORPUSCULAR VOLUME 91.2 fL (79-99); NUCLEATED RED BLOOD CELLS 0.1 % (0.0-0.19); PLATELET COUNT (AUTO) 234 K/uL (130-400); RED BLOOD CELL COUNT(AUTO) 3.41 MIL/uL (4.50-6.20); RED CELL DISTRIBUTION WIDTH 15.9 % (11.0-15.5); WHITE BLOOD COUNT (AUTO) 8.7 K/uL (4.8-10.8)
[2017-08-12 03:53] VITALS: BP 125/60
[2017-08-12 04:16] LABS: POTASSIUM 4.2 mmol/L (3.5-5.1)
[2017-08-12 07:45] VITALS: BP 113/52
[2017-08-12] MEDS ORDERED: ASPIRIN 81MG TAB.CHEW PO SCH (09:00)
[2017-08-12] MEDS ORDERED: CLOPIDOGREL BISULFATE 75 MG TAB PO SCH (09:00)
[2017-08-12] MEDS ORDERED: SANTYL TP SCH (09:00)
[2017-08-12] MEDS ORDERED: SPIRONOLACTONE 25 MG TAB PO SCH (09:00)
[2017-08-12] MEDS: METFORMIN HCL 500 MG TABLET PO SCH (10:38)
[2017-08-12] MEDS: PREGABALIN 25 MG CAP PO SCH (10:38)
[2017-08-12] MEDS: METOPROLOL TARTRATE 25 MG TAB PO SCH (10:38)
[2017-08-12] MEDS: FUROSEMIDE 40 MG TABLET PO SCH (10:39)
[2017-08-12 11:41] VITALS: BP 115/67
== END 2017-08-12 16:00 | disposition home or self-care (01) ==
LOC: DAH 05:59 → 2DH 06:00
PROVIDERS: ADMIT Family Medicine; ATTEND Family Medicine
DX: I25.5 Ischemic cardiomyopathy (principal); E11.51 Type 2 diabetes mellitus with diabetic peripheral angiopathy without gangrene; I11.0 Hypertensive heart disease with heart failure; I50.22 Chronic systolic (congestive) heart failure; I83.015 Varicose veins of right lower extremity with ulcer other part of foot; I83.025 Varicose veins of left lower extremity with ulcer other part of foot; I25.10 Atherosclerotic heart disease of native coronary artery without angina pectoris; E78.5 Hyperlipidemia, unspecified; G47.33 Obstructive sleep apnea (adult) (pediatric); J44.9 Chronic obstructive pulmonary disease, unspecified; F17.210 Nicotine dependence, cigarettes, uncomplicated; Z95.5 Presence of coronary angioplasty implant and graft; Z95.810 Presence of automatic (implantable) cardiac defibrillator; Z79.899 Other long term (current) drug therapy
CPT/HCPCS: 33249; 36415 ×3; 71045; 80048 ×2; 82948 ×6; 83880; 85025; 85027; 85610; 85730; 93005; A4606; C1722; C1895; G0378 ×34; J2175 ×2; J2250 ×2; J3370 ×2; J3490 ×2; 99156; 99157; J0690; Q9967

== ENCOUNTER → 2017-08-24 | Outpatient (CLI) | payer OTHER, MEDICARE ==
[~2017-08-24] MED LIST changes: +AMIO400T4 PO; +FURO20TA6 PO; +HONE44PA TP; +HYDR-4060 PO; +METOPROLOL PO; +TYL3 PO; +[UNRECOGNIZED DRUG - CODE] IV
[2017-08-24 14:25] VITALS: BP 106/52
== END | disposition home or self-care (01) ==
LOC: WHH 10:00
PROVIDERS: ATTEND Podiatrist Foot & Ankle Surgery
DX: I70.235 Atherosclerosis of native arteries of right leg with ulceration of other part of foot (principal); L97.511 Non-pressure chronic ulcer of other part of right foot limited to breakdown of skin; I70.245 Atherosclerosis of native arteries of left leg with ulceration of other part of foot; E11.621 Type 2 diabetes mellitus with foot ulcer; L97.521 Non-pressure chronic ulcer of other part of left foot limited to breakdown of skin; J44.9 Chronic obstructive pulmonary disease, unspecified; I25.10 Atherosclerotic heart disease of native coronary artery without angina pectoris; G47.33 Obstructive sleep apnea (adult) (pediatric); E11.52 Type 2 diabetes mellitus with diabetic peripheral angiopathy with gangrene; I96 Gangrene, not elsewhere classified; I25.2 Old myocardial infarction; E03.9 Hypothyroidism, unspecified; E78.4 Other hyperlipidemia; E11.40 Type 2 diabetes mellitus with diabetic neuropathy, unspecified; I11.0 Hypertensive heart disease with heart failure; I50.23 Acute on chronic systolic (congestive) heart failure; F17.210 Nicotine dependence, cigarettes, uncomplicated; Z95.1 Presence of aortocoronary bypass graft; Z95.810 Presence of automatic (implantable) cardiac defibrillator; Z86.73 Personal history of transient ischemic attack (TIA), and cerebral infarction without residual deficits; Z95.5 Presence of coronary angioplasty implant and graft; Z79.4 Long term (current) use of insulin; Z79.01 Long term (current) use of anticoagulants
CPT/HCPCS: A6209; G0463

== ENCOUNTER 2017-09-09 05:44 | Inpatient (IN) | payer OTHER, MEDICARE ==
[2017-09-09] VITALS (28 sets, daily range): BP systolic 76–136; BP diastolic 36–107
[~2017-09-09] VITALS: Ht 180.3 cm; Wt 77.9 kg
[~2017-09-09 05:44] MED LIST changes: -AMIO400T4 PO; -FURO20TA6 PO; -FURO40TA5 PO; -HONE44PA TP; -HYDR-4060 PO; -METF500T6 PO; -METO25TA6 PO; -SANTO TP; -[UNRECOGNIZED DRUG - CODE] IV
[2017-09-09] MEDS ORDERED: NITROGLYCERIN 1GM/1 INCH PACKET TD ONE (05:57)
[2017-09-09] MEDS ORDERED: FUROSEMIDE 10 MG/ML 4ML VIAL ONE ×2 (05:57→06:48)
[2017-09-09 06:02] LABS: BASOPHILS % (AUTO) 0.5 % (0.0-5.0); LYMPHOCYTES % (AUTO) 49.2 % (21.0-51.0); MEAN CORPUSCULAR HEMOGLOBIN 30.3 pg (27.0-33.0); MEAN CORPUSCULAR HGB CONC 31.5 g/dL (32.0-36.0); MEAN CORPUSCULAR VOLUME 96.2 fL (79-99); NEUTROPHILS % (AUTO) 38.3 % (40.0-77.0); PLATELET COUNT (AUTO) 407 K/uL (130-400); RED BLOOD CELL COUNT(AUTO) 3.74 MIL/uL (4.50-6.20); RED CELL DISTRIBUTION WIDTH 15.5 % (11.0-15.5); WHITE BLOOD COUNT (AUTO) 21.9 K/uL (4.8-10.8)
[2017-09-09 06:11] LABS: APPEARANCE,URINE Clear (CLEAR); BILIRUBIN,URINE Negative (NEGATIVE); COLOR,URINE Yellow (YELLOW); GLUCOSE, URINE (UA) Negative (NEGATIVE); KETONES,URINE Negative (NEGATIVE); LEUKOCYTE ESTERASE ,URINE Negative (NEGATIVE); NITRATE,URINE Negative (NEGATIVE); OCCULT BLOOD,URINE Negative (NEGATIVE); PROTEIN,URINE Negative (NEGATIVE); UROBILINOGEN,URINE 0.2 mg/dL (0.2-1.0)
[2017-09-09 06:14] LABS: ABG BASE EXCESS -14.4 mmol/L (-2.0-3.0); ABG HCO3 17.8 mmol/L (21.0-28.0); ABG OXYGEN SATURATION 92.9 % (95.0-99.0); ABG PCO2 72 mmHg (35-48)
[2017-09-09] MEDS ORDERED: ZOSYN 3.375GM+NS 50ML 50 ML IV ONE (06:14)
[2017-09-09] MEDS ORDERED: VANCOMYCIN 1GM+NS 250ML 250 ML IV ONE (06:14)
[2017-09-09 06:15] LABS: INR 0.99 (0.85-1.15); PARTIAL THROMBOPLASTIN TIME 30.3 SEC (26.3-35.5); PROTHROMBIN TIME 10.4 SEC (9.6-11.6)
[2017-09-09 06:21] LABS: CREATININE 2.3 mg/dL (0.5-1.5); POTASSIUM 3.2 mmol/L (3.5-5.1)
[2017-09-09 06:35] LABS: ALBUMIN 2.7 g/dL (3.5-5.0); BILIRUBIN,TOTAL 0.5 mg/dL (0.2-1.0); CREATINE KINASE MB 0.8 ng/mL (0.5-3.6); TOTAL PROTEIN, SERUM 7.5 g/dL (6.0-8.3)
[2017-09-09] MEDS ORDERED: POTASSIUM CHLORIDE 20MEQ/100ML 100 ML IV ONE (06:48)
[2017-09-09] MEDS: FUROSEMIDE 10 MG/ML 4ML VIAL IVP SCH ×2 (07:00→18:15)
[2017-09-09] MEDS ORDERED: PROPOFOL 1000 MG/100 ML 100 ML IV ONE ×2 (07:28→11:58)
[2017-09-09 09:44] LABS: ABG BASE EXCESS -5.9 mmol/L (-2.0-3.0); ABG HCO3 23.6 mmol/L (21.0-28.0); ABG OXYGEN SATURATION 88.1 % (95.0-99.0); ABG PCO2 63 mmHg (35-48)
[2017-09-09] MEDS: ENOXAPARIN SODIUM 30 MG/0.3 ML SQ SCH (11:17)
[2017-09-09] MEDS: IPRATROPIUM/ALBUTEROL SULFATE 3 ML SOLUTION IH SCH ×3 (11:28→23:17)
[2017-09-09] MEDS ORDERED: LORAZEPAM 2 MG/ML 1 ML VIAL IVP PRN (11:30)
[2017-09-09] MEDS ORDERED: MORPHINE SULFATE 2 MG/ML 1ML SYG IVP PRN (11:30)
[2017-09-09] MEDS ORDERED: ETOMIDATE 2 MG/ML 10 ML VIAL IVP ONE (12:00)
[2017-09-09] MEDS ORDERED: PROPOFOL 1000 MG/100 ML IV PRN (12:00)
[2017-09-09] MEDS ORDERED: SUCCINYLCHOLINE CHLORIDE 20 MG/ML 10 ML VIAL IVP ONE (12:00)
[2017-09-09] MEDS ORDERED: VANCOMYCIN PROTOCOL PER PHARMACY IV SCH (12:15)
[2017-09-09] MEDS ORDERED: ZOSYN 3.375GM+NS 50ML 50 ML IV SCH (13:00)
[2017-09-09 14:14] LABS: ABG BASE EXCESS -1.8 mmol/L (-2.0-3.0); ABG HCO3 22.8 mmol/L (21.0-28.0); ABG OXYGEN SATURATION 99.5 % (95.0-99.0); ABG PCO2 38 mmHg (35-48)
[2017-09-09] MEDS: SODIUM CHLORIDE 0.9% 1000ML 1,000 ML IV SCH (14:34)
[2017-09-09] MEDS ORDERED: COMPOUND IV REFRIGERATED 1 EACH IVSOLN MISC PRN (14:45)
[2017-09-09] MEDS ORDERED: VANCOMYCIN 1.75 GM in SODIUM CHLORIDE 0.9% 250 ML IV ONE (15:00)
[2017-09-09] MEDS ORDERED: VANCOMYCIN 0.75 GM in SODIUM CHLORIDE 0.9% 250 ML IV ONE (15:03)
[2017-09-09] MEDS ORDERED: VANCOMYCIN 750 GM in SODIUM CHLORIDE 0.9% 250 ML IV ONE (15:03)
[2017-09-09 15:39] LABS: CREATININE,URINE RANDOM 39 mg/dL (30-135); SODIUM,URINE RANDOM 94 mmol/l (40-220)
[2017-09-09] MEDS: PROPOFOL 1000 MG/100 ML 100 ML IV PRN (16:24)
[2017-09-09] MEDS: ZOSYN 3.375GM+NS 50ML 50 ML IV SCH (18:16)
[2017-09-09] MEDS ORDERED: ATOR40TA69 PO (18:34)
[2017-09-09] MEDS ORDERED: HYDR-4060 PO ×2 (18:34→18:37)
[2017-09-09] MEDS ORDERED: FURO20TA6 PO (18:34)
[2017-09-09] MEDS ORDERED: METO25TA6 PO (18:34)
[2017-09-09] MEDS ORDERED: AMIO400T4 PO (18:34)
[2017-09-09] MEDS ORDERED: GLUCAGON 1MG KIT 1 MG ML IM PRN (19:30)
[2017-09-09] MEDS ORDERED: DEXTROSE 50%-WATER 50 ML DISP.SYRIN IV PRN (19:30)
[2017-09-09] MEDS: PHENYLEPHRINE HCL 50 MG in SODIUM CHLORIDE 0.9% 250 ML IV SCH (21:36)
[2017-09-09] MEDS: MORPHINE SULFATE 2 MG/ML 1ML SYG IVP PRN (21:40)
[2017-09-10] VITALS (30 sets, daily range): BP systolic 86–148; BP diastolic 40–80
[2017-09-10] MEDS: PROPOFOL 1000 MG/100 ML 100 ML IV PRN ×5 (00:12→23:41)
[2017-09-10] MEDS: SODIUM CHLORIDE 0.9% 1000ML 1,000 ML IV SCH (03:21)
[2017-09-10 04:06] LABS: ABG BASE EXCESS 0.6 mmol/L (-2.0-3.0); ABG OXYGEN SATURATION 99.1 % (95.0-99.0); ABG PCO2 31 mmHg (35-48)
[2017-09-10 04:49] LABS: CREATININE 2.6 mg/dL (0.5-1.5); MAGNESIUM 1.9 mg/dL (1.80-2.40); PHOSPHORUS 3.4 mg/dL (2.5-4.9); POTASSIUM 3.7 mmol/L (3.5-5.1)
[2017-09-10 05:03] LABS: HEMATOCRIT 28.3 % (42-54); MEAN CORPUSCULAR HEMOGLOBIN 31.1 pg (27.0-33.0); MEAN CORPUSCULAR HGB CONC 33.8 g/dL (32.0-36.0); MEAN CORPUSCULAR VOLUME 92.1 fL (79-99); PLATELET COUNT (AUTO) 318 K/uL (130-400); RED BLOOD CELL COUNT(AUTO) 3.07 MIL/uL (4.50-6.20); RED CELL DISTRIBUTION WIDTH 15.5 % (11.0-15.5); WHITE BLOOD COUNT (AUTO) 12.7 K/uL (4.8-10.8)
[2017-09-10] MEDS: VANCOMYCIN 1GM+NS 250ML 250 ML IV SCH (05:10)
[2017-09-10] MEDS: ZOSYN 3.375GM+NS 50ML 50 ML IV SCH ×2 (05:10→17:15)
[2017-09-10 05:41] LABS: BAND NEUTROPHILS % (MANUAL) 6 % (0-2); BASOPHILS % (MANUAL) 1 % (0-2); LYMPHOCYTES % (MANUAL) 29 % (22-44); MONOCYTES % (MANUAL) 2 % (2-9); REACTIVE LYMPHOCYTES 1 % (0-0); SEGMENTED NEUTROPHILS % 61 % (40-70)
[2017-09-10 05:42] LABS: MAN.DIFF COMMENT-IMPRESSION MANUAL DIFFERENTIAL
[2017-09-10 05:43] LABS: PLATELET MORPHOLOGY COMMENT ADEQUATE
[2017-09-10] MEDS: INSULIN HUMULIN R 100 UNIT/ML 3ML SQ SCH ×4 (06:00→18:45)
[2017-09-10] MEDS: FUROSEMIDE 10 MG/ML 4ML VIAL IVP SCH ×2 (06:05→17:49)
[2017-09-10] MEDS: IPRATROPIUM/ALBUTEROL SULFATE 3 ML SOLUTION IH SCH ×3 (06:24→18:41)
[2017-09-10] MEDS: ENOXAPARIN SODIUM 30 MG/0.3 ML SQ SCH (07:45)
[2017-09-10] MEDS: PHENYLEPHRINE HCL 50 MG in SODIUM CHLORIDE 0.9% 250 ML IV SCH (21:31)
[2017-09-11] VITALS (25 sets, daily range): BP systolic 103–144; BP diastolic 44–72
[2017-09-11] MEDS: IPRATROPIUM/ALBUTEROL SULFATE 3 ML SOLUTION IH SCH ×5 (00:29→23:25)
[2017-09-11 04:24] LABS: HEMATOCRIT 27.3 % (42-54); MEAN CORPUSCULAR HEMOGLOBIN 30.8 pg (27.0-33.0); MEAN CORPUSCULAR HGB CONC 33.4 g/dL (32.0-36.0); MEAN CORPUSCULAR VOLUME 92.1 fL (79-99); PLATELET COUNT (AUTO) 327 K/uL (130-400); RED BLOOD CELL COUNT(AUTO) 2.96 MIL/uL (4.50-6.20); RED CELL DISTRIBUTION WIDTH 15.4 % (11.0-15.5); WHITE BLOOD COUNT (AUTO) 8.5 K/uL (4.8-10.8)
[2017-09-11 04:29] LABS: INR 1.01 (0.85-1.15); PARTIAL THROMBOPLASTIN TIME 29.8 SEC (26.3-35.5); PROTHROMBIN TIME 10.6 SEC (9.6-11.6)
[2017-09-11 04:38] LABS: ALBUMIN 2.1 g/dL (3.5-5.0); BILIRUBIN,TOTAL 0.3 mg/dL (0.2-1.0); CREATININE 2.6 mg/dL (0.5-1.5); TOTAL PROTEIN, SERUM 6.1 g/dL (6.0-8.3)
[2017-09-11 04:44] LABS: POTASSIUM 2.9 mmol/L (3.5-5.1)
[2017-09-11] MEDS: PROPOFOL 1000 MG/100 ML 100 ML IV PRN (05:07)
[2017-09-11] MEDS: INSULIN HUMULIN R 100 UNIT/ML 3ML SQ SCH ×4 (05:37→18:00)
[2017-09-11] MEDS: VANCOMYCIN 1GM+NS 250ML 250 ML IV SCH (05:41)
[2017-09-11] MEDS: FUROSEMIDE 10 MG/ML 4ML VIAL IVP SCH ×2 (05:53→17:51)
[2017-09-11] MEDS: ZOSYN 3.375GM+NS 50ML 50 ML IV SCH ×2 (05:53→17:51)
[2017-09-11] MEDS: POTASSIUM CHLORIDE 20MEQ/100ML 100 ML IV PRN (07:28)
[2017-09-11] MEDS ORDERED: LIDOCAINE HCL-MPF 1% 2ML VIAL IVP PRN (07:30)
[2017-09-11] MEDS ORDERED: POTASSIUM CHLORIDE 10% ELIXIR 20 MEQ/15 ML UDCUP PO PRN (07:30)
[2017-09-11] MEDS: ENOXAPARIN SODIUM 30 MG/0.3 ML SQ SCH (07:57)
[2017-09-11 08:11] LABS: ABG BASE EXCESS 1.8 mmol/L (-2.0-3.0); ABG HCO3 25.1 mmol/L (21.0-28.0); ABG OXYGEN SATURATION 99.3 % (95.0-99.0); ABG PCO2 36 mmHg (35-48)
[2017-09-11] MEDS ORDERED: POTASSIUM CHLORIDE 10% ELIXIR 20 MEQ/15 ML UDCUP PO SCH (10:00)
[2017-09-11 10:31] LABS: ABG BASE EXCESS 0.3 mmol/L (-2.0-3.0); ABG HCO3 24.5 mmol/L (21.0-28.0); ABG OXYGEN SATURATION 96.5 % (95.0-99.0); ABG PCO2 38 mmHg (35-48)
[2017-09-12] VITALS (10 sets, daily range): BP systolic 98–147; BP diastolic 30–66
[2017-09-12] MEDS: ZOSYN 3.375GM+NS 50ML 50 ML IV SCH ×2 (05:45→18:17)
[2017-09-12] MEDS: IPRATROPIUM/ALBUTEROL SULFATE 3 ML SOLUTION IH SCH ×3 (05:58→18:48)
[2017-09-12] MEDS: VANCOMYCIN 1GM+NS 250ML 250 ML IV SCH (06:00)
[2017-09-12] MEDS: INSULIN HUMULIN R 100 UNIT/ML 3ML SQ SCH ×4 (06:00→18:00)
[2017-09-12] MEDS: FUROSEMIDE 10 MG/ML 4ML VIAL IVP SCH ×2 (06:59→18:19)
[2017-09-12] MEDS: POTASSIUM CHLORIDE 20 MEQ ERTAB PO PRN ×2 (10:00→18:20)
[2017-09-12] MEDS: ENOXAPARIN SODIUM 30 MG/0.3 ML SQ SCH (10:02)
[2017-09-12] MEDS: MORPHINE SULFATE 2 MG/ML 1ML SYG IVP PRN (13:23)
[2017-09-12] MEDS: ATORVASTATIN CALCIUM 40 MG TABLET PO SCH (22:39)
[2017-09-12] MEDS: PREGABALIN 25 MG CAP PO SCH (22:39)
[2017-09-12] MEDS ORDERED: HYDROCODONE/ACETAMINOPHEN 5/325 MG TAB PO PRN (23:30)
[2017-09-12] MEDS ORDERED: FLUCONAZOLE 400 MG/NS 200 ML 200 ML IV ONE (23:30)
[2017-09-13] MEDS: IPRATROPIUM/ALBUTEROL SULFATE 3 ML SOLUTION IH SCH ×5 (00:52→23:33)
[2017-09-13 03:51] VITALS: BP 130/56
[2017-09-13 04:24] LABS: HEMATOCRIT 29.5 % (42-54); MEAN CORPUSCULAR HEMOGLOBIN 30.7 pg (27.0-33.0); MEAN CORPUSCULAR HGB CONC 33.8 g/dL (32.0-36.0); MEAN CORPUSCULAR VOLUME 90.9 fL (79-99); PLATELET COUNT (AUTO) 402 K/uL (130-400); RED BLOOD CELL COUNT(AUTO) 3.24 MIL/uL (4.50-6.20); WHITE BLOOD COUNT (AUTO) 9.7 K/uL (4.8-10.8)
[2017-09-13 04:43] LABS: BAND NEUTROPHILS % (MANUAL) 2 % (0-2); EOSINOPHILS % (MANUAL) 5 % (1-6); LYMPHOCYTES % (MANUAL) 16 % (22-44); MAN.DIFF COMMENT-IMPRESSION MANUAL DIFFERENTIAL; MONOCYTES % (MANUAL) 5 % (2-9); PLATELET MORPHOLOGY COMMENT IN; SEGMENTED NEUTROPHILS % 72 % (40-70)
[2017-09-13 04:44] LABS: CREATININE 2.4 mg/dL (0.5-1.5)
[2017-09-13] MEDS: ZOSYN 3.375GM+NS 50ML 50 ML IV SCH ×2 (04:49→16:41)
[2017-09-13] MEDS ORDERED: POTASSIUM CHLORIDE 10 MEQ/TAB.SA PO ONE ×4 (04:58→06:11)
[2017-09-13 04:59] LABS: B-TYPE NATRIURETIC PEPTIDE 1200 pg/mL (0-100)
[2017-09-13] MEDS: INSULIN HUMULIN R 100 UNIT/ML 3ML SQ SCH ×5 (05:58→22:00)
[2017-09-13] MEDS: FUROSEMIDE 10 MG/ML 4ML VIAL IVP SCH ×2 (06:36→16:44)
[2017-09-13 07:00] VITALS: BP 121/61
[2017-09-13] MEDS ORDERED: COMPOUND IV REFRIGERATED 1 EACH IVSOLN MISC PRN (07:30)
[2017-09-13] MEDS: ASPIRIN 81MG TAB.CHEW PO SCH (08:55)
[2017-09-13] MEDS: VANCOMYCIN 750MG + NS 250 ML IV SCH ×2 (08:55)
[2017-09-13] MEDS: SPIRONOLACTONE 25 MG TAB PO SCH (08:55)
[2017-09-13] MEDS: AMIODARONE HCL 200 MG TABLET PO SCH (08:55)
[2017-09-13] MEDS: POTASSIUM CHLORIDE 20 MEQ ERTAB PO PRN ×3 (08:55→16:40)
[2017-09-13] MEDS: CLOPIDOGREL BISULFATE 75 MG TAB PO SCH (08:55)
[2017-09-13] MEDS: PREGABALIN 25 MG CAP PO SCH ×2 (08:55→20:23)
[2017-09-13] MEDS: ENOXAPARIN SODIUM 30 MG/0.3 ML SQ SCH (08:56)
[2017-09-13] MEDS ORDERED: PHARMACY COMMUNICATION MISC SCH (09:00)
[2017-09-13 11:14] VITALS: BP 114/60
[2017-09-13] MEDS: MICAFUNGIN 100MG+NS 100ML 100 ML IV SCH (11:25)
[2017-09-13 16:00] VITALS: BP 112/55
[2017-09-13] MEDS: POTASSIUM CHLORIDE 20MEQ/100ML 100 ML IV PRN (16:40)
[2017-09-13 19:43] VITALS: BP 101/74
[2017-09-13] MEDS: ATORVASTATIN CALCIUM 40 MG TABLET PO SCH (20:23)
[2017-09-13 23:56] VITALS: BP 115/58
[2017-09-14 04:02] VITALS: BP 105/60
[2017-09-14] MEDS ORDERED: POTASSIUM CHLORIDE 10 MEQ/TAB.SA PO ONE ×2 (05:19→05:20)
[2017-09-14] MEDS: ZOSYN 3.375GM+NS 50ML 50 ML IV SCH ×2 (05:20→17:35)
[2017-09-14] MEDS: INSULIN HUMULIN R 100 UNIT/ML 3ML SQ SCH ×4 (06:00→21:56)
[2017-09-14] MEDS: IPRATROPIUM/ALBUTEROL SULFATE 3 ML SOLUTION IH SCH ×3 (06:10→18:24)
[2017-09-14] MEDS: FUROSEMIDE 10 MG/ML 4ML VIAL IVP SCH ×2 (07:00→21:26)
[2017-09-14 07:46] VITALS: BP 102/51
[2017-09-14] MEDS ORDERED: MICAFUNGIN 100MG+NS 100ML 100 ML IV SCH (09:00)
[2017-09-14] MEDS: CLOPIDOGREL BISULFATE 75 MG TAB PO SCH (09:07)
[2017-09-14] MEDS: PREGABALIN 25 MG CAP PO SCH ×2 (09:07→21:26)
[2017-09-14] MEDS: POTASSIUM CHLORIDE 20 MEQ ERTAB PO PRN (09:07)
[2017-09-14] MEDS: ASPIRIN 81MG TAB.CHEW PO SCH (09:07)
[2017-09-14] MEDS: AMIODARONE HCL 200 MG TABLET PO SCH (09:07)
[2017-09-14] MEDS: SPIRONOLACTONE 25 MG TAB PO SCH (09:07)
[2017-09-14] MEDS: ENOXAPARIN SODIUM 30 MG/0.3 ML SQ SCH (09:10)
[2017-09-14] MEDS: VANCOMYCIN 750MG + NS 250 ML IV SCH ×2 (09:12)
[2017-09-14 10:55] VITALS: BP 108/49
[2017-09-14] MEDS: MICAFUNGIN 100MG+NS 100ML 100 ML IV SCH (12:03)
[2017-09-14 15:52] VITALS: BP 131/70
[2017-09-14 19:33] VITALS: BP 127/63
[2017-09-14] MEDS: ATORVASTATIN CALCIUM 40 MG TABLET PO SCH (21:26)
[2017-09-14 23:40] VITALS: BP 125/59
[2017-09-15 03:35] VITALS: BP 124/58
[2017-09-15 03:55] LABS: CREATININE 3.3 mg/dL (0.5-1.5); POTASSIUM 4.1 mmol/L (3.5-5.1)
[2017-09-15] MEDS: ZOSYN 3.375GM+NS 50ML 50 ML IV SCH (05:52)
[2017-09-15] MEDS: IPRATROPIUM/ALBUTEROL SULFATE 3 ML SOLUTION IH SCH ×5 (06:09→23:17)
[2017-09-15] MEDS: INSULIN HUMULIN R 100 UNIT/ML 3ML SQ SCH ×4 (06:16→21:56)
[2017-09-15] MEDS: FUROSEMIDE 10 MG/ML 4ML VIAL IVP SCH (07:00)
[2017-09-15 07:43] VITALS: BP 113/59
[2017-09-15] MEDS: PREGABALIN 25 MG CAP PO SCH ×2 (08:56→21:56)
[2017-09-15] MEDS: CLOPIDOGREL BISULFATE 75 MG TAB PO SCH (08:56)
[2017-09-15] MEDS: ASPIRIN 81MG TAB.CHEW PO SCH (08:56)
[2017-09-15] MEDS: SPIRONOLACTONE 25 MG TAB PO SCH (08:56)
[2017-09-15] MEDS: AMIODARONE HCL 200 MG TABLET PO SCH (08:56)
[2017-09-15] MEDS: ENOXAPARIN SODIUM 30 MG/0.3 ML SQ SCH (08:58)
[2017-09-15] MEDS: VANCOMYCIN 750MG + NS 250 ML IV SCH ×2 (09:30)
[2017-09-15 11:00] VITALS: BP 125/61
[2017-09-15] MEDS: MICAFUNGIN 100MG+NS 100ML 100 ML IV SCH (11:33)
[2017-09-15] MEDS ORDERED: ENOXAPARIN SODIUM 60 MG/0.6 ML SQ SCH (15:45)
[2017-09-15 16:19] VITALS: BP 105/58
[2017-09-15] MEDS ORDERED: WARFARIN SODIUM 5 MG TAB PO SCH (16:30)
[2017-09-15] MEDS: FUROSEMIDE 40 MG TABLET PO SCH (16:46)
[2017-09-15 20:12] VITALS: BP 118/61
[2017-09-15] MEDS: ATORVASTATIN CALCIUM 40 MG TABLET PO SCH (21:56)
[2017-09-16] VITALS: BP 119/57
[2017-09-16 04:10] LABS: BASOPHILS % (AUTO) 0.8 % (0.0-5.0); EOSINOPHILS % (AUTO) 10.4 % (0.0-8.0); HEMATOCRIT 29.8 % (42-54); LYMPHOCYTES % (AUTO) 28.5 % (21.0-51.0); MEAN CORPUSCULAR HEMOGLOBIN 31.8 pg (27.0-33.0); NEUTROPHILS % (AUTO) 50.3 % (40.0-77.0); PLATELET COUNT (AUTO) 434 K/uL (130-400); RED BLOOD CELL COUNT(AUTO) 3.28 MIL/uL (4.50-6.20); RED CELL DISTRIBUTION WIDTH 15.3 % (11.0-15.5); WHITE BLOOD COUNT (AUTO) 8.9 K/uL (4.8-10.8)
[2017-09-16 04:13] LABS: CREATININE 3.1 mg/dL (0.5-1.5)
[2017-09-16 04:16] LABS: INR 1.01 (0.85-1.15); PROTHROMBIN TIME 10.6 SEC (9.6-11.6)
[2017-09-16 04:37] LABS: B-TYPE NATRIURETIC PEPTIDE 528 pg/mL (0-100)
[2017-09-16 04:58] VITALS: BP 122/55
[2017-09-16] MEDS: IPRATROPIUM/ALBUTEROL SULFATE 3 ML SOLUTION IH SCH ×4 (06:27→23:34)
[2017-09-16] MEDS: INSULIN HUMULIN R 100 UNIT/ML 3ML SQ SCH ×3 (07:05→22:06)
[2017-09-16 07:30] VITALS: BP 122/61
[2017-09-16] MEDS: FUROSEMIDE 40 MG TABLET PO SCH ×2 (09:05→16:58)
[2017-09-16] MEDS: ASPIRIN 81MG TAB.CHEW PO SCH (09:05)
[2017-09-16] MEDS: SPIRONOLACTONE 25 MG TAB PO SCH (09:05)
[2017-09-16] MEDS: AMIODARONE HCL 200 MG TABLET PO SCH (09:05)
[2017-09-16] MEDS: PREGABALIN 25 MG CAP PO SCH ×2 (09:05→22:08)
[2017-09-16] MEDS: MICAFUNGIN 100MG+NS 100ML 100 ML IV SCH (09:06)
[2017-09-16] MEDS: ENOXAPARIN SODIUM 80 MG/0.8 ML SQ SCH (09:06)
[2017-09-16 11:50] VITALS: BP 115/63
[2017-09-16 16:00] VITALS: BP 107/53
[2017-09-16] MEDS ORDERED: WARFARIN SODIUM 2.5 MG TAB PO SCH (16:00)
[2017-09-16] MEDS ORDERED: FLUCONAZOLE 400 MG/NS 200 ML 200 ML ONE (16:53)
[2017-09-16] MEDS: WARFARIN SODIUM 5 MG TAB PO SCH (16:57)
[2017-09-16] MEDS: FLUCONAZOLE 400 MG/NS 200 ML 200 ML IV SCH (17:19)
[2017-09-16 20:00] VITALS: BP 127/57
[2017-09-16] MEDS: ATORVASTATIN CALCIUM 40 MG TABLET PO SCH (22:08)
[2017-09-17] VITALS (7 sets, daily range): BP systolic 105–129; BP diastolic 53–64
[2017-09-17 04:21] LABS: INR 1.01 (0.85-1.15); PROTHROMBIN TIME 10.6 SEC (9.6-11.6)
[2017-09-17] MEDS: INSULIN HUMULIN R 100 UNIT/ML 3ML SQ SCH ×4 (06:23→20:51)
[2017-09-17] MEDS: IPRATROPIUM/ALBUTEROL SULFATE 3 ML SOLUTION IH SCH ×4 (06:26→23:57)
[2017-09-17] MEDS: FLUCONAZOLE 400 MG/NS 200 ML 200 ML IV SCH (10:05)
[2017-09-17] MEDS: ENOXAPARIN SODIUM 80 MG/0.8 ML SQ SCH (10:05)
[2017-09-17] MEDS: FUROSEMIDE 40 MG TABLET PO SCH ×2 (10:05→17:06)
[2017-09-17] MEDS: SPIRONOLACTONE 25 MG TAB PO SCH (10:05)
[2017-09-17] MEDS: ASPIRIN 81MG TAB.CHEW PO SCH (10:06)
[2017-09-17] MEDS: AMIODARONE HCL 200 MG TABLET PO SCH (10:06)
[2017-09-17] MEDS: PREGABALIN 25 MG CAP PO SCH ×2 (10:06→20:54)
[2017-09-17] MEDS: WARFARIN SODIUM 5 MG TAB PO SCH (17:06)
[2017-09-17] MEDS: ATORVASTATIN CALCIUM 40 MG TABLET PO SCH (20:54)
[2017-09-18] VITALS (7 sets, daily range): BP systolic 93–137; BP diastolic 47–61
[2017-09-18 04:06] LABS: BASOPHILS % (AUTO) 0.7 % (0.0-5.0); EOSINOPHILS % (AUTO) 7.2 % (0.0-8.0); HEMATOCRIT 29.5 % (42-54); LYMPHOCYTES % (AUTO) 31.4 % (21.0-51.0); MEAN CORPUSCULAR HEMOGLOBIN 32.3 pg (27.0-33.0); MEAN CORPUSCULAR HGB CONC 35.3 g/dL (32.0-36.0); MEAN CORPUSCULAR VOLUME 91.5 fL (79-99); MONOCYTES % (AUTO) 9.9 % (3.0-13.0); NEUTROPHILS % (AUTO) 50.8 % (40.0-77.0); PLATELET COUNT (AUTO) 368 K/uL (130-400); RED BLOOD CELL COUNT(AUTO) 3.22 MIL/uL (4.50-6.20); RED CELL DISTRIBUTION WIDTH 15.5 % (11.0-15.5); WHITE BLOOD COUNT (AUTO) 8.4 K/uL (4.8-10.8)
[2017-09-18 04:17] LABS: INR 1.02 (0.85-1.15); PROTHROMBIN TIME 10.7 SEC (9.6-11.6)
[2017-09-18 04:19] LABS: MAGNESIUM 2.1 mg/dL (1.80-2.40); PHOSPHORUS 4.1 mg/dL (2.5-4.9); POTASSIUM 4.1 mmol/L (3.5-5.1)
[2017-09-18 05:35] LABS: B-TYPE NATRIURETIC PEPTIDE 531 pg/mL (0-100)
[2017-09-18] MEDS: INSULIN HUMULIN R 100 UNIT/ML 3ML SQ SCH ×3 (06:00→18:00)
[2017-09-18] MEDS: IPRATROPIUM/ALBUTEROL SULFATE 3 ML SOLUTION IH SCH ×4 (06:05→23:35)
[2017-09-18] MEDS: SPIRONOLACTONE 25 MG TAB PO SCH (09:55)
[2017-09-18] MEDS: FLUCONAZOLE 400 MG/NS 200 ML 200 ML IV SCH (09:55)
[2017-09-18] MEDS: ASPIRIN 81MG TAB.CHEW PO SCH (09:55)
[2017-09-18] MEDS: PREGABALIN 25 MG CAP PO SCH ×2 (09:56→21:21)
[2017-09-18] MEDS: FUROSEMIDE 40 MG TABLET PO SCH ×2 (09:56→16:32)
[2017-09-18] MEDS: ENOXAPARIN SODIUM 80 MG/0.8 ML SQ SCH (09:56)
[2017-09-18] MEDS: AMIODARONE HCL 200 MG TABLET PO SCH (09:56)
[2017-09-18] MEDS: WARFARIN SODIUM 5 MG TAB PO SCH (16:32)
[2017-09-18] MEDS: ATORVASTATIN CALCIUM 40 MG TABLET PO SCH (21:20)
[2017-09-19] MEDS: INSULIN HUMULIN R 100 UNIT/ML 3ML SQ SCH ×4 (00:14→16:57)
[2017-09-19 03:30] VITALS: BP 114/59
[2017-09-19] MEDS: IPRATROPIUM/ALBUTEROL SULFATE 3 ML SOLUTION IH SCH ×4 (06:43→23:09)
[2017-09-19] MEDS: FUROSEMIDE 40 MG TABLET PO SCH ×2 (07:49→16:13)
[2017-09-19] MEDS: PREGABALIN 25 MG CAP PO SCH ×2 (07:49→21:06)
[2017-09-19] MEDS: SPIRONOLACTONE 25 MG TAB PO SCH (07:49)
[2017-09-19] MEDS: FLUCONAZOLE 400 MG/NS 200 ML 200 ML IV SCH (07:49)
[2017-09-19] MEDS: AMIODARONE HCL 200 MG TABLET PO SCH (07:49)
[2017-09-19] MEDS: ASPIRIN 81MG TAB.CHEW PO SCH (07:49)
[2017-09-19] MEDS: ENOXAPARIN SODIUM 80 MG/0.8 ML SQ SCH (07:49)
[2017-09-19 07:53] VITALS: BP 150/54
[2017-09-19 11:38] VITALS: BP 122/62
[2017-09-19 16:00] VITALS: BP 120/76
[2017-09-19] MEDS: WARFARIN SODIUM 5 MG TAB PO SCH (16:13)
[2017-09-19 20:00] VITALS: BP 131/58
[2017-09-19] MEDS: ATORVASTATIN CALCIUM 40 MG TABLET PO SCH (21:06)
[2017-09-20 00:13] VITALS: BP 120/52
[2017-09-20 04:00] VITALS: BP 124/57
[2017-09-20 04:39] LABS: INR 1.15 (0.85-1.15)
[2017-09-20] MEDS: FLUCONAZOLE 400 MG/NS 200 ML 200 ML IV SCH (05:25)
[2017-09-20] MEDS: IPRATROPIUM/ALBUTEROL SULFATE 3 ML SOLUTION IH SCH ×4 (05:51→23:23)
[2017-09-20] MEDS: INSULIN HUMULIN R 100 UNIT/ML 3ML SQ SCH ×5 (06:00→21:15)
[2017-09-20 07:59] VITALS: BP 109/69
[2017-09-20] MEDS ORDERED: FLUCONAZOLE 100 MG TAB PO SCH (09:00)
[2017-09-20] MEDS: ENOXAPARIN SODIUM 80 MG/0.8 ML SQ SCH ×2 (09:00→15:29)
[2017-09-20] MEDS: FUROSEMIDE 40 MG TABLET PO SCH ×2 (09:19→17:12)
[2017-09-20] MEDS: AMIODARONE HCL 200 MG TABLET PO SCH (09:19)
[2017-09-20] MEDS: ASPIRIN 81MG TAB.CHEW PO SCH (09:19)
[2017-09-20] MEDS: SPIRONOLACTONE 25 MG TAB PO SCH (09:19)
[2017-09-20] MEDS: PREGABALIN 25 MG CAP PO SCH ×2 (09:19→21:15)
[2017-09-20 11:50] VITALS: BP 119/55
[2017-09-20] MEDS: WARFARIN SODIUM 5 MG TAB PO SCH (15:29)
[2017-09-20 16:56] VITALS: BP 96/52
[2017-09-20 19:45] VITALS: BP 122/65
[2017-09-20] MEDS: ATORVASTATIN CALCIUM 40 MG TABLET PO SCH (21:15)
[2017-09-21] VITALS: BP 122/52
[2017-09-21 03:31] VITALS: BP 107/53
[2017-09-21 03:58] LABS: HEMATOCRIT 32.1 % (42-54); MEAN CORPUSCULAR HEMOGLOBIN 30.2 pg (27.0-33.0); MEAN CORPUSCULAR VOLUME 91.4 fL (79-99); PLATELET COUNT (AUTO) 318 K/uL (130-400); RED BLOOD CELL COUNT(AUTO) 3.51 MIL/uL (4.50-6.20); RED CELL DISTRIBUTION WIDTH 15.4 % (11.0-15.5); WHITE BLOOD COUNT (AUTO) 7.9 K/uL (4.8-10.8)
[2017-09-21 04:08] LABS: INR 1.63 (0.85-1.15)
[2017-09-21 04:15] LABS: BILIRUBIN,TOTAL 0.2 mg/dL (0.2-1.0); CREATININE 3.1 mg/dL (0.5-1.5); MAGNESIUM 2.3 mg/dL (1.80-2.40); PHOSPHORUS 4.8 mg/dL (2.5-4.9); POTASSIUM 4.4 mmol/L (3.5-5.1); TOTAL PROTEIN, SERUM 7.5 g/dL (6.0-8.3)
[2017-09-21] MEDS: FLUCONAZOLE 400 MG/NS 200 ML 200 ML IV SCH (04:54)
[2017-09-21] MEDS: IPRATROPIUM/ALBUTEROL SULFATE 3 ML SOLUTION IH SCH ×3 (05:55→18:42)
[2017-09-21] MEDS: INSULIN HUMULIN R 100 UNIT/ML 3ML SQ SCH ×4 (06:22→20:56)
[2017-09-21 07:53] VITALS: BP 107/61
[2017-09-21] MEDS: PREGABALIN 25 MG CAP PO SCH ×2 (09:22→20:52)
[2017-09-21] MEDS: SPIRONOLACTONE 25 MG TAB PO SCH (09:22)
[2017-09-21] MEDS: AMIODARONE HCL 200 MG TABLET PO SCH (09:22)
[2017-09-21] MEDS: ASPIRIN 81MG TAB.CHEW PO SCH (09:22)
[2017-09-21] MEDS: ENOXAPARIN SODIUM 80 MG/0.8 ML SQ SCH (09:23)
[2017-09-21] MEDS: FUROSEMIDE 40 MG TABLET PO SCH ×2 (09:23→17:18)
[2017-09-21 11:32] VITALS: BP 114/62
[2017-09-21 16:17] VITALS: BP 104/49
[2017-09-21] MEDS: WARFARIN SODIUM 5 MG TAB PO SCH (17:18)
[2017-09-21 20:24] VITALS: BP 124/66
[2017-09-21] MEDS: ATORVASTATIN CALCIUM 40 MG TABLET PO SCH (20:52)
[2017-09-22] VITALS (7 sets, daily range): BP systolic 107–123; BP diastolic 55–62
[2017-09-22] MEDS: IPRATROPIUM/ALBUTEROL SULFATE 3 ML SOLUTION IH SCH ×5 (00:15→23:41)
[2017-09-22] MEDS: FLUCONAZOLE 400 MG/NS 200 ML 200 ML IV SCH (04:26)
[2017-09-22 04:39] LABS: HEMATOCRIT 32.5 % (42-54); MEAN CORPUSCULAR HEMOGLOBIN 31.2 pg (27.0-33.0); MEAN CORPUSCULAR HGB CONC 34.3 g/dL (32.0-36.0); MEAN CORPUSCULAR VOLUME 90.8 fL (79-99); PLATELET COUNT (AUTO) 290 K/uL (130-400); RED BLOOD CELL COUNT(AUTO) 3.58 MIL/uL (4.50-6.20); RED CELL DISTRIBUTION WIDTH 15.3 % (11.0-15.5); WHITE BLOOD COUNT (AUTO) 7.7 K/uL (4.8-10.8)
[2017-09-22 04:46] LABS: CREATININE 3.3 mg/dL (0.5-1.5); POTASSIUM 4.1 mmol/L (3.5-5.1)
[2017-09-22 04:48] LABS: INR 2.23 (0.85-1.15); PARTIAL THROMBOPLASTIN TIME 31.3 SEC (26.3-35.5)
[2017-09-22] MEDS: INSULIN HUMULIN R 100 UNIT/ML 3ML SQ SCH ×4 (06:03→21:00)
[2017-09-22] MEDS: ASPIRIN 81MG TAB.CHEW PO SCH (08:25)
[2017-09-22] MEDS: PREGABALIN 25 MG CAP PO SCH ×2 (08:25→21:41)
[2017-09-22] MEDS: FUROSEMIDE 40 MG TABLET PO SCH (08:25)
[2017-09-22] MEDS: SPIRONOLACTONE 25 MG TAB PO SCH (08:25)
[2017-09-22] MEDS: AMIODARONE HCL 200 MG TABLET PO SCH (08:25)
[2017-09-22] MEDS: ENOXAPARIN SODIUM 80 MG/0.8 ML SQ SCH (08:26)
[2017-09-22] MEDS: HONEY 1 APPL/ML TUBE TP SCH (17:30)
[2017-09-22] MEDS: WARFARIN SODIUM 5 MG TAB PO SCH (17:30)
[2017-09-22] MEDS: ATORVASTATIN CALCIUM 40 MG TABLET PO SCH (21:41)
[2017-09-23 03:00] VITALS: BP 113/55
[2017-09-23 04:10] LABS: POTASSIUM 4.5 mmol/L (3.5-5.1)
[2017-09-23] MEDS: FLUCONAZOLE 400 MG/NS 200 ML 200 ML IV SCH (04:32)
[2017-09-23] MEDS: IPRATROPIUM/ALBUTEROL SULFATE 3 ML SOLUTION IH SCH ×3 (06:00→18:31)
[2017-09-23] MEDS: INSULIN HUMULIN R 100 UNIT/ML 3ML SQ SCH ×3 (06:13→17:28)
[2017-09-23 07:28] VITALS: BP 125/59
[2017-09-23] MEDS: HONEY 1 APPL/ML TUBE TP SCH (09:00)
[2017-09-23] MEDS: PREGABALIN 25 MG CAP PO SCH (09:09)
[2017-09-23] MEDS: AMIODARONE HCL 200 MG TABLET PO SCH (09:09)
[2017-09-23] MEDS: ASPIRIN 81MG TAB.CHEW PO SCH (09:09)
[2017-09-23] MEDS: ENOXAPARIN SODIUM 80 MG/0.8 ML SQ SCH (09:10)
[2017-09-23 11:22] VITALS: BP 123/57
[2017-09-23 16:13] VITALS: BP 121/62
[2017-09-23] MEDS ORDERED: HONE44PA TP (19:31)
[2017-09-23] MEDS ORDERED: [UNRECOGNIZED DRUG - CODE] IV (19:33)
== END 2017-09-23 21:00 | disposition home or self-care (01) | DRG 871 ==
LOC: EDH 05:44 → EDHIP 06:49 → 2CH 09:11 → 2DH 09-12 04:30
PROVIDERS: ADMIT Internal Medicine Pulmonary Disease; ATTEND Internal Medicine Pulmonary Disease
PROC: 0BH17EZ Insertion of Endotracheal Airway into Trachea, Via Natural or Artificial Opening (ICD-10-PCS; principal; 2017-09-09)
PROC: 5A1945Z Respiratory Ventilation, 24-96 Consecutive Hours (ICD-10-PCS; 2017-09-09)
PROC: 02HV33Z Insertion of Infusion Device into Superior Vena Cava, Percutaneous Approach (ICD-10-PCS; 2017-09-20)
DX: A41.9 Sepsis, unspecified organism (principal); J18.9 Pneumonia, unspecified organism; I50.43 Acute on chronic combined systolic (congestive) and diastolic (congestive) heart failure; J96.21 Acute and chronic respiratory failure with hypoxia; J96.22 Acute and chronic respiratory failure with hypercapnia; E11.52 Type 2 diabetes mellitus with diabetic peripheral angiopathy with gangrene; G93.1 Anoxic brain damage, not elsewhere classified; I13.0 Hypertensive heart and chronic kidney disease with heart failure and stage 1 through stage 4 chronic kidney disease, or unspecified chronic kidney disease; I42.9 Cardiomyopathy, unspecified; L03.90 Cellulitis, unspecified; N17.9 Acute kidney failure, unspecified; L02.214 Cutaneous abscess of groin; Y95 Nosocomial condition; E11.21 Type 2 diabetes mellitus with diabetic nephropathy; E11.40 Type 2 diabetes mellitus with diabetic neuropathy, unspecified; Z79.4 Long term (current) use of insulin; I25.5 Ischemic cardiomyopathy; B95.8 Unspecified staphylococcus as the cause of diseases classified elsewhere; D64.9 Anemia, unspecified; E11.22 Type 2 diabetes mellitus with diabetic chronic kidney disease; E11.621 Type 2 diabetes mellitus with foot ulcer; E11.65 Type 2 diabetes mellitus with hyperglycemia; E66.9 Obesity, unspecified; E78.5 Hyperlipidemia, unspecified; F17.200 Nicotine dependence, unspecified, uncomplicated; I25.10 Atherosclerotic heart disease of native coronary artery without angina pectoris; I25.82 Chronic total occlusion of coronary artery; I51.3 Intracardiac thrombosis, not elsewhere classified; I72.4 Aneurysm of artery of lower extremity; L97.519 Non-pressure chronic ulcer of other part of right foot with unspecified severity; N18.9 Chronic kidney disease, unspecified; S98.119 Complete traumatic amputation of unspecified great toe; Z89.429 Acquired absence of other toe(s), unspecified side; Z95.0 Presence of cardiac pacemaker; I25.2 Old myocardial infarction; Z74.01 Bed confinement status; Z91.19 Patient's noncompliance with other medical treatment and regimen; Z79.899 Other long term (current) drug therapy; Z95.5 Presence of coronary angioplasty implant and graft; Z95.1 Presence of aortocoronary bypass graft; Z68.24 Body mass index [BMI] 24.0-24.9, adult
CPT/HCPCS: 31500; 36415; 36600; 71045; 80048; 80053; 80202; 81003; 82553; 82570; 82803; 82948; 83605; 83735; 83880; 84100; 84132; 84300; 84484; 85025; 85027; 85610; 85730; 87040; 87070; 87071; 87186; 87205; 93005; 93306; 94002; 94003; 94150; 94640; 94660; 94664; 97039; 99291; C1894; J0330; J1450; J1650; J1815; J1940; J2248; J2370; J2543; J2704; J3370; J3480; J3490; J7030

== ENCOUNTER → 2017-11-30 | Outpatient (CLI) | payer OTHER, MEDICARE ==
[~2017-11-30] MED LIST changes: +AMIO400T4 PO; +FURO20TA6 PO; +HONE44PA TP; +HYDR-4060 PO; +METO25TA6 PO; -METOPROLOL PO; -TYL3 PO; +[UNRECOGNIZED DRUG - CODE] IV
[2017-11-30 12:54] VITALS: BP 105/56
== END | disposition home or self-care (01) ==
LOC: WHH 10:25
PROVIDERS: ATTEND Podiatrist Foot & Ankle Surgery
DX: I70.235 Atherosclerosis of native arteries of right leg with ulceration of other part of foot (principal); E11.621 Type 2 diabetes mellitus with foot ulcer; L97.511 Non-pressure chronic ulcer of other part of right foot limited to breakdown of skin; I70.245 Atherosclerosis of native arteries of left leg with ulceration of other part of foot; L97.521 Non-pressure chronic ulcer of other part of left foot limited to breakdown of skin; E11.622 Type 2 diabetes mellitus with other skin ulcer; I70.233 Atherosclerosis of native arteries of right leg with ulceration of ankle; L97.311 Non-pressure chronic ulcer of right ankle limited to breakdown of skin; I25.10 Atherosclerotic heart disease of native coronary artery without angina pectoris; E11.22 Type 2 diabetes mellitus with diabetic chronic kidney disease; I13.0 Hypertensive heart and chronic kidney disease with heart failure and stage 1 through stage 4 chronic kidney disease, or unspecified chronic kidney disease; N18.9 Chronic kidney disease, unspecified; I50.43 Acute on chronic combined systolic (congestive) and diastolic (congestive) heart failure; E66.9 Obesity, unspecified; I25.2 Old myocardial infarction; E11.21 Type 2 diabetes mellitus with diabetic nephropathy; E11.40 Type 2 diabetes mellitus with diabetic neuropathy, unspecified; J44.9 Chronic obstructive pulmonary disease, unspecified; E11.52 Type 2 diabetes mellitus with diabetic peripheral angiopathy with gangrene; I96 Gangrene, not elsewhere classified; G47.33 Obstructive sleep apnea (adult) (pediatric); E03.8 Other specified hypothyroidism; E78.4 Other hyperlipidemia; B35.1 Tinea unguium; F17.210 Nicotine dependence, cigarettes, uncomplicated; Z95.810 Presence of automatic (implantable) cardiac defibrillator; Z95.1 Presence of aortocoronary bypass graft; Z95.5 Presence of coronary angioplasty implant and graft; Z86.73 Personal history of transient ischemic attack (TIA), and cerebral infarction without residual deficits; Z79.4 Long term (current) use of insulin; Z79.01 Long term (current) use of anticoagulants; Z68.24 Body mass index [BMI] 24.0-24.9, adult
CPT/HCPCS: 15275; A4649; A6197; A6207; L3260; Q4133

== ENCOUNTER → 2017-12-07 | Outpatient (CLI) | payer OTHER, MEDICARE ==
[2017-12-07 14:54] VITALS: BP 116/63
== END | disposition home or self-care (01) ==
LOC: WHH 10:30
PROVIDERS: ATTEND Podiatrist Foot & Ankle Surgery
DX: I70.235 Atherosclerosis of native arteries of right leg with ulceration of other part of foot (principal); E11.621 Type 2 diabetes mellitus with foot ulcer; L97.511 Non-pressure chronic ulcer of other part of right foot limited to breakdown of skin; I70.245 Atherosclerosis of native arteries of left leg with ulceration of other part of foot; L97.521 Non-pressure chronic ulcer of other part of left foot limited to breakdown of skin; I70.233 Atherosclerosis of native arteries of right leg with ulceration of ankle; E11.622 Type 2 diabetes mellitus with other skin ulcer; L97.311 Non-pressure chronic ulcer of right ankle limited to breakdown of skin; I25.10 Atherosclerotic heart disease of native coronary artery without angina pectoris; E11.22 Type 2 diabetes mellitus with diabetic chronic kidney disease; I13.0 Hypertensive heart and chronic kidney disease with heart failure and stage 1 through stage 4 chronic kidney disease, or unspecified chronic kidney disease; N18.9 Chronic kidney disease, unspecified; I50.43 Acute on chronic combined systolic (congestive) and diastolic (congestive) heart failure; E66.9 Obesity, unspecified; I25.2 Old myocardial infarction; E11.21 Type 2 diabetes mellitus with diabetic nephropathy; E11.40 Type 2 diabetes mellitus with diabetic neuropathy, unspecified; J44.9 Chronic obstructive pulmonary disease, unspecified; E11.52 Type 2 diabetes mellitus with diabetic peripheral angiopathy with gangrene; I96 Gangrene, not elsewhere classified; G47.33 Obstructive sleep apnea (adult) (pediatric); E03.8 Other specified hypothyroidism; E78.4 Other hyperlipidemia; B35.1 Tinea unguium; F17.210 Nicotine dependence, cigarettes, uncomplicated; Z95.810 Presence of automatic (implantable) cardiac defibrillator; Z95.1 Presence of aortocoronary bypass graft; Z95.5 Presence of coronary angioplasty implant and graft; Z86.73 Personal history of transient ischemic attack (TIA), and cerebral infarction without residual deficits; Z79.4 Long term (current) use of insulin; Z79.01 Long term (current) use of anticoagulants; Z68.24 Body mass index [BMI] 24.0-24.9, adult
CPT/HCPCS: 15275; A6197; A6207; A6209; Q4133

== ENCOUNTER → 2017-12-14 | Outpatient (CLI) | payer OTHER, MEDICARE ==
[2017-12-14 13:19] VITALS: BP 109/60
== END | disposition home or self-care (01) ==
LOC: WHH 10:45
PROVIDERS: ATTEND Podiatrist Foot & Ankle Surgery
DX: I70.235 Atherosclerosis of native arteries of right leg with ulceration of other part of foot (principal); E11.621 Type 2 diabetes mellitus with foot ulcer; L97.511 Non-pressure chronic ulcer of other part of right foot limited to breakdown of skin; I70.245 Atherosclerosis of native arteries of left leg with ulceration of other part of foot; L97.521 Non-pressure chronic ulcer of other part of left foot limited to breakdown of skin; I70.233 Atherosclerosis of native arteries of right leg with ulceration of ankle; E11.622 Type 2 diabetes mellitus with other skin ulcer; L97.311 Non-pressure chronic ulcer of right ankle limited to breakdown of skin; I25.10 Atherosclerotic heart disease of native coronary artery without angina pectoris; E11.22 Type 2 diabetes mellitus with diabetic chronic kidney disease; I13.0 Hypertensive heart and chronic kidney disease with heart failure and stage 1 through stage 4 chronic kidney disease, or unspecified chronic kidney disease; N18.9 Chronic kidney disease, unspecified; I50.43 Acute on chronic combined systolic (congestive) and diastolic (congestive) heart failure; E66.9 Obesity, unspecified; I25.2 Old myocardial infarction; E11.21 Type 2 diabetes mellitus with diabetic nephropathy; E11.40 Type 2 diabetes mellitus with diabetic neuropathy, unspecified; J44.9 Chronic obstructive pulmonary disease, unspecified; E11.52 Type 2 diabetes mellitus with diabetic peripheral angiopathy with gangrene; I96 Gangrene, not elsewhere classified; G47.33 Obstructive sleep apnea (adult) (pediatric); E03.8 Other specified hypothyroidism; E78.4 Other hyperlipidemia; B35.1 Tinea unguium; F17.210 Nicotine dependence, cigarettes, uncomplicated; Z95.810 Presence of automatic (implantable) cardiac defibrillator; Z95.1 Presence of aortocoronary bypass graft; Z95.5 Presence of coronary angioplasty implant and graft; Z86.73 Personal history of transient ischemic attack (TIA), and cerebral infarction without residual deficits; Z79.4 Long term (current) use of insulin; Z79.01 Long term (current) use of anticoagulants; Z68.24 Body mass index [BMI] 24.0-24.9, adult
CPT/HCPCS: 15275; A6197; A6207; A6209; Q4133

== ENCOUNTER → 2017-12-21 | Outpatient (CLI) | payer OTHER, MEDICARE ==
[2017-12-21 14:23] VITALS: BP 111/56
== END | disposition home or self-care (01) ==
LOC: WHH 08:00
PROVIDERS: ATTEND Podiatrist Foot & Ankle Surgery
DX: I70.235 Atherosclerosis of native arteries of right leg with ulceration of other part of foot (principal); E11.621 Type 2 diabetes mellitus with foot ulcer; L97.511 Non-pressure chronic ulcer of other part of right foot limited to breakdown of skin; I70.245 Atherosclerosis of native arteries of left leg with ulceration of other part of foot; L97.521 Non-pressure chronic ulcer of other part of left foot limited to breakdown of skin; I70.233 Atherosclerosis of native arteries of right leg with ulceration of ankle; E11.622 Type 2 diabetes mellitus with other skin ulcer; L97.311 Non-pressure chronic ulcer of right ankle limited to breakdown of skin; I25.10 Atherosclerotic heart disease of native coronary artery without angina pectoris; E11.22 Type 2 diabetes mellitus with diabetic chronic kidney disease; I13.0 Hypertensive heart and chronic kidney disease with heart failure and stage 1 through stage 4 chronic kidney disease, or unspecified chronic kidney disease; N18.9 Chronic kidney disease, unspecified; I50.43 Acute on chronic combined systolic (congestive) and diastolic (congestive) heart failure; E66.9 Obesity, unspecified; I25.2 Old myocardial infarction; E11.21 Type 2 diabetes mellitus with diabetic nephropathy; E11.40 Type 2 diabetes mellitus with diabetic neuropathy, unspecified; J44.9 Chronic obstructive pulmonary disease, unspecified; E11.52 Type 2 diabetes mellitus with diabetic peripheral angiopathy with gangrene; I96 Gangrene, not elsewhere classified; G47.33 Obstructive sleep apnea (adult) (pediatric); E03.8 Other specified hypothyroidism; E78.49 Other hyperlipidemia; B35.1 Tinea unguium; F17.210 Nicotine dependence, cigarettes, uncomplicated; Z95.810 Presence of automatic (implantable) cardiac defibrillator; Z95.1 Presence of aortocoronary bypass graft; Z95.5 Presence of coronary angioplasty implant and graft; Z86.73 Personal history of transient ischemic attack (TIA), and cerebral infarction without residual deficits; Z79.4 Long term (current) use of insulin; Z79.01 Long term (current) use of anticoagulants; Z68.24 Body mass index [BMI] 24.0-24.9, adult
CPT/HCPCS: 15275; A6197; A6207; A6209; Q4133

== ENCOUNTER → 2017-12-28 | Outpatient (CLI) | payer OTHER, MEDICARE ==
[2017-12-28 11:59] VITALS: BP 115/60
== END | disposition home or self-care (01) ==
LOC: WHH 08:00
PROVIDERS: ATTEND Podiatrist Foot & Ankle Surgery
DX: I70.235 Atherosclerosis of native arteries of right leg with ulceration of other part of foot (principal); E11.621 Type 2 diabetes mellitus with foot ulcer; L97.511 Non-pressure chronic ulcer of other part of right foot limited to breakdown of skin; I70.245 Atherosclerosis of native arteries of left leg with ulceration of other part of foot; L97.521 Non-pressure chronic ulcer of other part of left foot limited to breakdown of skin; I25.10 Atherosclerotic heart disease of native coronary artery without angina pectoris; E11.22 Type 2 diabetes mellitus with diabetic chronic kidney disease; I13.0 Hypertensive heart and chronic kidney disease with heart failure and stage 1 through stage 4 chronic kidney disease, or unspecified chronic kidney disease; N18.9 Chronic kidney disease, unspecified; I50.43 Acute on chronic combined systolic (congestive) and diastolic (congestive) heart failure; E66.9 Obesity, unspecified; I25.2 Old myocardial infarction; E11.21 Type 2 diabetes mellitus with diabetic nephropathy; E11.40 Type 2 diabetes mellitus with diabetic neuropathy, unspecified; J44.9 Chronic obstructive pulmonary disease, unspecified; E11.52 Type 2 diabetes mellitus with diabetic peripheral angiopathy with gangrene; I96 Gangrene, not elsewhere classified; G47.33 Obstructive sleep apnea (adult) (pediatric); E03.8 Other specified hypothyroidism; E78.49 Other hyperlipidemia; F17.210 Nicotine dependence, cigarettes, uncomplicated; Z95.810 Presence of automatic (implantable) cardiac defibrillator; Z95.1 Presence of aortocoronary bypass graft; Z95.5 Presence of coronary angioplasty implant and graft; Z86.73 Personal history of transient ischemic attack (TIA), and cerebral infarction without residual deficits; Z79.4 Long term (current) use of insulin; Z79.01 Long term (current) use of anticoagulants; Z68.24 Body mass index [BMI] 24.0-24.9, adult
CPT/HCPCS: 15275; A6197; A6207; Q4133

== ENCOUNTER → 2018-01-04 | Outpatient (CLI) | payer OTHER, MEDICARE ==
[2018-01-04 13:52] VITALS: BP 121/83
== END | disposition home or self-care (01) ==
LOC: WHH 08:00
PROVIDERS: ATTEND Podiatrist Foot & Ankle Surgery
DX: I70.235 Atherosclerosis of native arteries of right leg with ulceration of other part of foot (principal); E11.621 Type 2 diabetes mellitus with foot ulcer; L97.511 Non-pressure chronic ulcer of other part of right foot limited to breakdown of skin; I70.245 Atherosclerosis of native arteries of left leg with ulceration of other part of foot; L97.521 Non-pressure chronic ulcer of other part of left foot limited to breakdown of skin; I25.10 Atherosclerotic heart disease of native coronary artery without angina pectoris; E11.22 Type 2 diabetes mellitus with diabetic chronic kidney disease; I13.0 Hypertensive heart and chronic kidney disease with heart failure and stage 1 through stage 4 chronic kidney disease, or unspecified chronic kidney disease; N18.9 Chronic kidney disease, unspecified; I50.43 Acute on chronic combined systolic (congestive) and diastolic (congestive) heart failure; E66.9 Obesity, unspecified; I25.2 Old myocardial infarction; E11.21 Type 2 diabetes mellitus with diabetic nephropathy; E11.40 Type 2 diabetes mellitus with diabetic neuropathy, unspecified; J44.9 Chronic obstructive pulmonary disease, unspecified; E11.52 Type 2 diabetes mellitus with diabetic peripheral angiopathy with gangrene; I96 Gangrene, not elsewhere classified; G47.33 Obstructive sleep apnea (adult) (pediatric); E03.8 Other specified hypothyroidism; E78.49 Other hyperlipidemia; F17.210 Nicotine dependence, cigarettes, uncomplicated; Z95.810 Presence of automatic (implantable) cardiac defibrillator; Z95.1 Presence of aortocoronary bypass graft; Z95.5 Presence of coronary angioplasty implant and graft; Z86.73 Personal history of transient ischemic attack (TIA), and cerebral infarction without residual deficits; Z79.4 Long term (current) use of insulin; Z79.01 Long term (current) use of anticoagulants; Z68.24 Body mass index [BMI] 24.0-24.9, adult
CPT/HCPCS: 15275; A4649; A6197; A6207; Q4133

== ENCOUNTER → 2018-01-11 | Outpatient (CLI) | payer OTHER, MEDICARE ==
[2018-01-11 13:42] VITALS: BP 119/59
== END | disposition home or self-care (01) ==
LOC: WHH 08:00
PROVIDERS: ATTEND Podiatrist Foot & Ankle Surgery
DX: I70.235 Atherosclerosis of native arteries of right leg with ulceration of other part of foot (principal); E11.621 Type 2 diabetes mellitus with foot ulcer; L97.511 Non-pressure chronic ulcer of other part of right foot limited to breakdown of skin; I70.245 Atherosclerosis of native arteries of left leg with ulceration of other part of foot; L97.521 Non-pressure chronic ulcer of other part of left foot limited to breakdown of skin; I25.10 Atherosclerotic heart disease of native coronary artery without angina pectoris; E11.22 Type 2 diabetes mellitus with diabetic chronic kidney disease; I13.0 Hypertensive heart and chronic kidney disease with heart failure and stage 1 through stage 4 chronic kidney disease, or unspecified chronic kidney disease; N18.9 Chronic kidney disease, unspecified; I50.43 Acute on chronic combined systolic (congestive) and diastolic (congestive) heart failure; E66.9 Obesity, unspecified; I25.2 Old myocardial infarction; E11.21 Type 2 diabetes mellitus with diabetic nephropathy; E11.40 Type 2 diabetes mellitus with diabetic neuropathy, unspecified; J44.9 Chronic obstructive pulmonary disease, unspecified; E11.52 Type 2 diabetes mellitus with diabetic peripheral angiopathy with gangrene; I96 Gangrene, not elsewhere classified; G47.33 Obstructive sleep apnea (adult) (pediatric); E03.8 Other specified hypothyroidism; E78.49 Other hyperlipidemia; F17.210 Nicotine dependence, cigarettes, uncomplicated; Z95.810 Presence of automatic (implantable) cardiac defibrillator; Z95.1 Presence of aortocoronary bypass graft; Z95.5 Presence of coronary angioplasty implant and graft; Z86.73 Personal history of transient ischemic attack (TIA), and cerebral infarction without residual deficits; Z79.4 Long term (current) use of insulin; Z79.01 Long term (current) use of anticoagulants; Z68.24 Body mass index [BMI] 24.0-24.9, adult
CPT/HCPCS: 11042; 11045; A4649

== ENCOUNTER → 2018-01-18 | Outpatient (CLI) | payer OTHER, MEDICARE ==
[2018-01-18 12:19] VITALS: BP 105/65
== END | disposition home or self-care (01) ==
LOC: WHH 08:00
PROVIDERS: ATTEND Podiatrist Foot & Ankle Surgery
DX: I70.235 Atherosclerosis of native arteries of right leg with ulceration of other part of foot (principal); E11.621 Type 2 diabetes mellitus with foot ulcer; L97.511 Non-pressure chronic ulcer of other part of right foot limited to breakdown of skin; I70.245 Atherosclerosis of native arteries of left leg with ulceration of other part of foot; L97.521 Non-pressure chronic ulcer of other part of left foot limited to breakdown of skin; I25.10 Atherosclerotic heart disease of native coronary artery without angina pectoris; J44.9 Chronic obstructive pulmonary disease, unspecified; E11.52 Type 2 diabetes mellitus with diabetic peripheral angiopathy with gangrene; I96 Gangrene, not elsewhere classified; E11.22 Type 2 diabetes mellitus with diabetic chronic kidney disease; I13.0 Hypertensive heart and chronic kidney disease with heart failure and stage 1 through stage 4 chronic kidney disease, or unspecified chronic kidney disease; N18.9 Chronic kidney disease, unspecified; I50.43 Acute on chronic combined systolic (congestive) and diastolic (congestive) heart failure; E11.40 Type 2 diabetes mellitus with diabetic neuropathy, unspecified; E11.21 Type 2 diabetes mellitus with diabetic nephropathy; F17.210 Nicotine dependence, cigarettes, uncomplicated; E66.9 Obesity, unspecified; G47.33 Obstructive sleep apnea (adult) (pediatric); I25.2 Old myocardial infarction; E78.49 Other hyperlipidemia; E03.8 Other specified hypothyroidism; Z79.01 Long term (current) use of anticoagulants; Z79.4 Long term (current) use of insulin; Z95.1 Presence of aortocoronary bypass graft; Z86.73 Personal history of transient ischemic attack (TIA), and cerebral infarction without residual deficits; Z95.810 Presence of automatic (implantable) cardiac defibrillator; Z95.5 Presence of coronary angioplasty implant and graft; Z68.24 Body mass index [BMI] 24.0-24.9, adult
CPT/HCPCS: 15275; A6197; A6207; Q4133

== ENCOUNTER 2018-01-23 06:39 | Inpatient (IN) | payer OTHER, MEDICARE ==
[~2018-01-23] VITALS: Ht 180.3 cm; Wt 75.9 kg
[2018-01-23] VITALS (26 sets, daily range): BP systolic 81–136; BP diastolic 41–83
[2018-01-23] MEDS ORDERED: FUROSEMIDE 10 MG/ML 4ML VIAL ONE (06:42)
[2018-01-23] MEDS ORDERED: IPRATROPIUM/ALBUTEROL SULFATE 3 ML SOLUTION IH ONE (06:49)
[2018-01-23 07:03] LABS: BASOPHILS % (AUTO) 0.8 % (0.0-5.0); EOSINOPHILS % (AUTO) 5.4 % (0.0-8.0); HEMATOCRIT 39.5 % (42-54); LYMPHOCYTES % (AUTO) 57.1 % (21.0-51.0); MEAN CORPUSCULAR HEMOGLOBIN 29.5 pg (27.0-33.0); MEAN CORPUSCULAR HGB CONC 31.2 g/dL (32.0-36.0); MEAN CORPUSCULAR VOLUME 94.5 fL (79-99); MONOCYTES % (AUTO) 5.7 % (3.0-13.0); PLATELET COUNT (AUTO) 330 K/uL (130-400); RED BLOOD CELL COUNT(AUTO) 4.18 MIL/uL (4.50-6.20); RED CELL DISTRIBUTION WIDTH 17.2 % (11.0-15.5); WHITE BLOOD COUNT (AUTO) 18.8 K/uL (4.8-10.8)
[2018-01-23 07:09] LABS: CREATININE 1.8 mg/dL (0.5-1.5); POTASSIUM 3.8 mmol/L (3.5-5.1)
[2018-01-23 07:11] LABS: ABG BASE EXCESS -14.5 mmol/L (-2.0-3.0); ABG HCO3 16.4 mmol/L (21.0-28.0); ABG OXYGEN SATURATION 97.7 % (95.0-99.0); ABG PCO2 60 mmHg (35-48)
[2018-01-23 07:15] LABS: ALBUMIN 2.9 g/dL (3.5-5.0); BILIRUBIN,TOTAL 0.3 mg/dL (0.2-1.0); TOTAL PROTEIN, SERUM 7.4 g/dL (6.0-8.3)
[2018-01-23 07:21] LABS: PARTIAL THROMBOPLASTIN TIME 26.6 SEC (26.3-35.5); PROTHROMBIN TIME 10.5 SEC (9.6-11.6)
[2018-01-23 07:36] LABS: B-TYPE NATRIURETIC PEPTIDE 856 pg/mL (0-100)
[2018-01-23] MEDS ORDERED: PROPOFOL 1000 MG/100 ML 100 ML IV ONE (07:40)
[2018-01-23] MEDS ORDERED: NOREPINEPHRINE BITARTRATE 1 MG/1 ML ML IV ONE ×2 (08:24→08:26)
[2018-01-23 08:40] LABS: APPEARANCE,URINE Clear (CLEAR); BILIRUBIN,URINE Negative (NEGATIVE); COLOR,URINE Yellow (YELLOW); GLUCOSE, URINE (UA) Negative (NEGATIVE); KETONES,URINE Negative (NEGATIVE); LEUKOCYTE ESTERASE ,URINE Negative (NEGATIVE); NITRATE,URINE Negative (NEGATIVE); OCCULT BLOOD,URINE Negative (NEGATIVE); PROTEIN,URINE POS 1+ (NEGATIVE); UROBILINOGEN,URINE 0.2 mg/dL (0.2-1.0)
[2018-01-23 08:50] LABS: BACTERIA,URINE None Seen /HPF (None Seen); HYALINE CASTS, URINE 0-1 /LPF (0-1 /LPF); RBC,URINE 0-1 /HPF (0-1); SQUAMOUS EPITHELIAL CELL,UR 0-2 /HPF (0-2); WBC,URINE 0-1 /HPF (0-1)
[2018-01-23] MEDS: FUROSEMIDE 10 MG/ML 4ML VIAL IVP SCH ×2 (09:00→22:21)
[2018-01-23 09:29] LABS: ABG BASE EXCESS -8.5 mmol/L (-2.0-3.0); ABG HCO3 17.3 mmol/L (21.0-28.0); ABG OXYGEN SATURATION 89.8 % (95.0-99.0); ABG PCO2 37 mmHg (35-48)
[2018-01-23] MEDS ORDERED: VANCOMYCIN PROTOCOL PER PHARMACY IV SCH (10:30)
[2018-01-23] MEDS ORDERED: SODIUM CHLORIDE 0.9% 1000ML 1,000 ML IV ONE (10:33)
[2018-01-23] MEDS ORDERED: COMPOUND IV REFRIGERATED 1 EACH IVSOLN MISC PRN (11:45)
[2018-01-23] MEDS ORDERED: ETOMIDATE 2 MG/ML 10 ML VIAL IVP ONE ×2 (12:00)
[2018-01-23] MEDS ORDERED: ETOMIDATE 2 MG/ML 10 ML VIAL ONE (12:00)
[2018-01-23] MEDS ORDERED: ROCURONIUM BROMIDE 10MG/1ML 5ML VL IV ONE ×2 (12:00)
[2018-01-23] MEDS ORDERED: ROCURONIUM BROMIDE 10MG/1ML 5ML VL ONE (12:00)
[2018-01-23] MEDS: ZOSYN 3.375GM+NS 50ML 50 ML IV SCH ×2 (12:44→22:22)
[2018-01-23] MEDS: VANCOMYCIN 1.25 GM in SODIUM CHLORIDE 0.9% 250 ML IV SCH (12:44)
[2018-01-23] MEDS ORDERED: ASPIRIN 325MG EC TAB 325 MG TABLET.DR PO SCH (13:45)
[2018-01-23] MEDS ORDERED: ASPIRIN 325 MG TABLET PO SCH (15:15)
[2018-01-23] MEDS: ENOXAPARIN SODIUM 80 MG/0.8 ML SQ SCH (15:37)
[2018-01-23] MEDS: PROPOFOL 1000 MG/100 ML IV PRN ×2 (15:55→20:06)
[2018-01-23] MEDS: INSULIN LISPRO 100 UNIT/ML 3ML SQ SCH ×2 (16:30→23:48)
[2018-01-23] MEDS: AMIODARONE HCL 200 MG TABLET PO SCH (17:39)
[2018-01-23] MEDS: CLOPIDOGREL BISULFATE 75 MG TAB PO SCH (17:39)
[2018-01-23] MEDS: FAMOTIDINE/PF 20 MG/2 ML VIAL IV SCH (22:20)
[2018-01-23] MEDS: ATORVASTATIN CALCIUM 40 MG TABLET PO SCH (22:22)
[2018-01-23] MEDS: NOREPINEPHRINE 4MG/NS 250ML 250 ML IV SCH (23:13)
[2018-01-24] VITALS (26 sets, daily range): BP systolic 86–145; BP diastolic 47–87
[2018-01-24] MEDS: PROPOFOL 1000 MG/100 ML IV PRN ×2 (01:43→06:26)
[2018-01-24 03:54] LABS: BASOPHILS % (AUTO) 0.5 % (0.0-5.0); EOSINOPHILS % (AUTO) 2.8 % (0.0-8.0); HEMATOCRIT 32.7 % (42-54); LYMPHOCYTES % (AUTO) 17.3 % (21.0-51.0); MEAN CORPUSCULAR HEMOGLOBIN 29.4 pg (27.0-33.0); MEAN CORPUSCULAR VOLUME 89.3 fL (79-99); MONOCYTES % (AUTO) 9.9 % (3.0-13.0); NEUTROPHILS % (AUTO) 69.5 % (40.0-77.0); PLATELET COUNT (AUTO) 280 K/uL (130-400); RED BLOOD CELL COUNT(AUTO) 3.66 MIL/uL (4.50-6.20); RED CELL DISTRIBUTION WIDTH 16.5 % (11.0-15.5); WHITE BLOOD COUNT (AUTO) 12.9 K/uL (4.8-10.8)
[2018-01-24 04:03] LABS: INR 1.02 (0.85-1.15); PARTIAL THROMBOPLASTIN TIME 27.9 SEC (26.3-35.5); PROTHROMBIN TIME 10.7 SEC (9.6-11.6)
[2018-01-24 04:07] LABS: HEMOGLOBIN A1C 6.6 % (4.0-6.0)
[2018-01-24 04:21] LABS: ALBUMIN 2.6 g/dL (3.5-5.0); BILIRUBIN,TOTAL 0.5 mg/dL (0.2-1.0); CREATININE 1.7 mg/dL (0.5-1.5); MAGNESIUM 1.9 mg/dL (1.80-2.40); PHOSPHORUS 3.2 mg/dL (2.5-4.9); POTASSIUM 3.6 mmol/L (3.5-5.1); THYROID STIMULATING HORMONE 1.11 uIU/mL (0.36-3.74); TOTAL PROTEIN, SERUM 6.4 g/dL (6.0-8.3)
[2018-01-24 04:34] LABS: TROPONIN I 6.74 ng/mL (0.00-0.06)
[2018-01-24 04:38] LABS: B-TYPE NATRIURETIC PEPTIDE 1060 pg/mL (0-100)
[2018-01-24] MEDS: NOREPINEPHRINE 4MG/NS 250ML 250 ML IV SCH (06:31)
[2018-01-24] MEDS: INSULIN LISPRO 100 UNIT/ML 3ML SQ SCH ×4 (07:15→21:00)
[2018-01-24] MEDS: FAMOTIDINE/PF 20 MG/2 ML VIAL IV SCH ×2 (08:09→21:02)
[2018-01-24] MEDS: AMIODARONE HCL 200 MG TABLET PO SCH (08:09)
[2018-01-24] MEDS: ASPIRIN 325 MG TABLET PO SCH (08:09)
[2018-01-24] MEDS: CLOPIDOGREL BISULFATE 75 MG TAB PO SCH (08:09)
[2018-01-24] MEDS: FUROSEMIDE 10 MG/ML 4ML VIAL IVP SCH ×2 (08:10→21:03)
[2018-01-24] MEDS: ENOXAPARIN SODIUM 80 MG/0.8 ML SQ SCH (08:11)
[2018-01-24] MEDS ORDERED: CLOPIDOGREL BISULFATE 75 MG TAB PO SCH (09:00)
[2018-01-24] MEDS ORDERED: AMIODARONE HCL 200 MG TABLET PO SCH (09:00)
[2018-01-24] MEDS ORDERED: ENOXAPARIN SODIUM 30 MG/0.3 ML SQ SCH (09:00)
[2018-01-24 10:21] LABS: ABG BASE EXCESS -2.8 mmol/L (-2.0-3.0); ABG HCO3 22.1 mmol/L (21.0-28.0); ABG OXYGEN SATURATION 95.7 % (95.0-99.0); ABG PCO2 39 mmHg (35-48)
[2018-01-24] MEDS: ZOSYN 3.375GM+NS 50ML 50 ML IV SCH ×2 (11:58→22:01)
[2018-01-24] MEDS: FENTANYL CITRATE PF 50 MCG/1 ML 2ML VIAL IVP PRN (11:59)
[2018-01-24] MEDS: VANCOMYCIN 1.25 GM in SODIUM CHLORIDE 0.9% 250 ML IV SCH (12:58)
[2018-01-24] MEDS: METOPROLOL TARTRATE 25 MG TAB PO SCH (21:03)
[2018-01-24] MEDS: ATORVASTATIN CALCIUM 40 MG TABLET PO SCH (21:03)
[2018-01-24] MEDS ORDERED: ACETAMINOPHEN 325 MG TAB ONE (23:24)
[2018-01-24] MEDS ORDERED: GUAIFENESIN-CODEINE 5 ML SYRUP ONE ×2 (23:25→23:30)
[2018-01-24] MEDS ORDERED: ONDANSETRON HCL MDV 20ML 2 MG/ML VIAL IVP PRN (23:30)
[2018-01-24] MEDS ORDERED: GUAIFENESIN-CODEINE 5 ML SYRUP PO PRN (23:30)
[2018-01-24] MEDS ORDERED: ACETAMINOPHEN 325 MG TAB PO PRN ×2 (23:30)
[2018-01-25] VITALS (19 sets, daily range): BP systolic 85–122; BP diastolic 38–65
[2018-01-25] MEDS: FENTANYL CITRATE PF 50 MCG/1 ML 2ML VIAL IVP PRN (01:13)
[2018-01-25 04:30] LABS: CREATININE 1.7 mg/dL (0.5-1.5); MAGNESIUM 1.8 mg/dL (1.80-2.40); PHOSPHORUS 3.1 mg/dL (2.5-4.9); POTASSIUM 3.2 mmol/L (3.5-5.1)
[2018-01-25 04:33] LABS: BASOPHILS % (AUTO) 0.4 % (0.0-5.0); HEMATOCRIT 31.2 % (42-54); LYMPHOCYTES % (AUTO) 20.1 % (21.0-51.0); MEAN CORPUSCULAR HEMOGLOBIN 29.4 pg (27.0-33.0); MEAN CORPUSCULAR HGB CONC 32.7 g/dL (32.0-36.0); MEAN CORPUSCULAR VOLUME 89.6 fL (79-99); MONOCYTES % (AUTO) 8.8 % (3.0-13.0); NEUTROPHILS % (AUTO) 65.7 % (40.0-77.0); PLATELET COUNT (AUTO) 234 K/uL (130-400); RED BLOOD CELL COUNT(AUTO) 3.48 MIL/uL (4.50-6.20); RED CELL DISTRIBUTION WIDTH 16.3 % (11.0-15.5); WHITE BLOOD COUNT (AUTO) 11.4 K/uL (4.8-10.8)
[2018-01-25] MEDS ORDERED: POTASSIUM CHLORIDE 20MEQ/100ML 100 ML IV ONE (06:27)
[2018-01-25] MEDS ORDERED: MAGNESIUM 2GM PREMIX 50ML 50 ML IV PRN ×2 (06:30→10:30)
[2018-01-25] MEDS: INSULIN LISPRO 100 UNIT/ML 3ML SQ SCH ×4 (06:33→20:58)
[2018-01-25] MEDS ORDERED: SODIUM CHLORIDE 0.9% 100 ML IV ONE (09:54)
[2018-01-25] MEDS: LEVOFLOXACIN 750 MG/D5W 150 ML 150 ML IV SCH (10:14)
[2018-01-25] MEDS: ENOXAPARIN SODIUM 80 MG/0.8 ML SQ SCH (10:15)
[2018-01-25] MEDS: METOPROLOL TARTRATE 25 MG TAB PO SCH ×2 (10:16→20:57)
[2018-01-25] MEDS: CLOPIDOGREL BISULFATE 75 MG TAB PO SCH (10:16)
[2018-01-25] MEDS: ASPIRIN 325 MG TABLET PO SCH (10:16)
[2018-01-25] MEDS: ZOSYN 3.375GM+NS 50ML 50 ML IV SCH ×2 (10:16→23:18)
[2018-01-25] MEDS: AMIODARONE HCL 200 MG TABLET PO SCH (10:16)
[2018-01-25] MEDS: FAMOTIDINE/PF 20 MG/2 ML VIAL IV SCH ×2 (10:16→20:57)
[2018-01-25] MEDS: FUROSEMIDE 10 MG/ML 4ML VIAL IVP SCH ×2 (10:16→20:57)
[2018-01-25] MEDS ORDERED: POTASSIUM CHLORIDE 10 MEQ/TAB.SA PO ONE (10:20)
[2018-01-25] MEDS ORDERED: LIDOCAINE HCL-MPF 1% 2ML VIAL IVP PRN (10:30)
[2018-01-25] MEDS ORDERED: POTASSIUM CHLORIDE 10MEQ/100ML 100 ML IV PRN (10:30)
[2018-01-25] MEDS ORDERED: POTASSIUM CHLORIDE 10% ELIXIR 20 MEQ/15 ML UDCUP PO PRN (10:30)
[2018-01-25] MEDS: VANCOMYCIN 1.25 GM in SODIUM CHLORIDE 0.9% 250 ML IV SCH (13:15)
[2018-01-25] MEDS: ATORVASTATIN CALCIUM 40 MG TABLET PO SCH (20:57)
[2018-01-25] MEDS: POTASSIUM CHLORIDE 20 MEQ ERTAB PO PRN (21:00)
[2018-01-26] VITALS (25 sets, daily range): BP systolic 86–143; BP diastolic 49–83
[2018-01-26 05:03] LABS: INR 1.04 (0.85-1.15); PARTIAL THROMBOPLASTIN TIME 29.9 SEC (26.3-35.5); PROTHROMBIN TIME 10.9 SEC (9.6-11.6)
[2018-01-26 05:11] LABS: BASOPHILS % (AUTO) 0.5 % (0.0-5.0); EOSINOPHILS % (AUTO) 5.5 % (0.0-8.0); HEMATOCRIT 33.5 % (42-54); LYMPHOCYTES % (AUTO) 20.4 % (21.0-51.0); MEAN CORPUSCULAR HEMOGLOBIN 29.3 pg (27.0-33.0); MEAN CORPUSCULAR HGB CONC 32.7 g/dL (32.0-36.0); MEAN CORPUSCULAR VOLUME 89.7 fL (79-99); MONOCYTES % (AUTO) 9.4 % (3.0-13.0); NEUTROPHILS % (AUTO) 64.2 % (40.0-77.0); PLATELET COUNT (AUTO) 230 K/uL (130-400); RED BLOOD CELL COUNT(AUTO) 3.73 MIL/uL (4.50-6.20); RED CELL DISTRIBUTION WIDTH 16.1 % (11.0-15.5); WHITE BLOOD COUNT (AUTO) 9.1 K/uL (4.8-10.8)
[2018-01-26 05:13] LABS: CREATININE 1.6 mg/dL (0.5-1.5); MAGNESIUM 2.1 mg/dL (1.80-2.40); PHOSPHORUS 2.4 mg/dL (2.5-4.9); POTASSIUM 3.6 mmol/L (3.5-5.1)
[2018-01-26 05:16] LABS: B-TYPE NATRIURETIC PEPTIDE 931 pg/mL (0-100)
[2018-01-26] MEDS: INSULIN LISPRO 100 UNIT/ML 3ML SQ SCH ×4 (06:19→21:00)
[2018-01-26 07:10] LABS: ABG HCO3 23.8 mmol/L (21.0-28.0); ABG PCO2 67 mmHg (35-48)
[2018-01-26] MEDS: FUROSEMIDE 10 MG/ML 4ML VIAL IVP SCH ×2 (07:11→20:36)
[2018-01-26] MEDS ORDERED: SODIUM CHLORIDE 0.9% 1000ML 1,000 ML IV ONE (08:53)
[2018-01-26] MEDS: METOPROLOL TARTRATE 25 MG TAB PO SCH ×2 (09:00→22:05)
[2018-01-26] MEDS: ASPIRIN 325 MG TABLET PO SCH (09:00)
[2018-01-26] MEDS: CLOPIDOGREL BISULFATE 75 MG TAB PO SCH (09:00)
[2018-01-26] MEDS: AMIODARONE HCL 200 MG TABLET PO SCH (09:00)
[2018-01-26] MEDS: FAMOTIDINE/PF 20 MG/2 ML VIAL IV SCH ×2 (09:00→20:36)
[2018-01-26] MEDS: ENOXAPARIN SODIUM 80 MG/0.8 ML SQ SCH (09:01)
[2018-01-26] MEDS: FENTANYL 2500MCG+NS 250ML 250 ML IV PRN ×2 (09:44→20:39)
[2018-01-26] MEDS: ZOSYN 3.375GM+NS 50ML 50 ML IV SCH ×2 (10:20→22:06)
[2018-01-26 10:21] LABS: ABG BASE EXCESS -1.8 mmol/L (-2.0-3.0); ABG HCO3 25.5 mmol/L (21.0-28.0); ABG OXYGEN SATURATION 98.5 % (95.0-99.0); ABG PCO2 54 mmHg (35-48)
[2018-01-26] MEDS: VANCOMYCIN 750MG + NS 250 ML IV SCH ×2 (14:49)
[2018-01-26] MEDS: ATORVASTATIN CALCIUM 40 MG TABLET PO SCH (20:37)
[2018-01-27] VITALS (25 sets, daily range): BP systolic 92–139; BP diastolic 41–95
[2018-01-27] MEDS: VANCOMYCIN 750MG + NS 250 ML IV SCH ×4 (01:00→13:05)
[2018-01-27 04:15] LABS: ABG BASE EXCESS -3.5 mmol/L (-2.0-3.0); ABG HCO3 23.1 mmol/L (21.0-28.0); ABG OXYGEN SATURATION 94.4 % (95.0-99.0); ABG PCO2 48 mmHg (35-48)
[2018-01-27 06:16] LABS: HEMATOCRIT 37.6 % (42-54); MEAN CORPUSCULAR VOLUME 90.6 fL (79-99); PLATELET COUNT (AUTO) 289 K/uL (130-400); RED BLOOD CELL COUNT(AUTO) 4.15 MIL/uL (4.50-6.20); RED CELL DISTRIBUTION WIDTH 16.4 % (11.0-15.5)
[2018-01-27] MEDS: INSULIN LISPRO 100 UNIT/ML 3ML SQ SCH ×3 (06:23→17:54)
[2018-01-27 06:28] LABS: MAGNESIUM 2.2 mg/dL (1.80-2.40); POTASSIUM 4.4 mmol/L (3.5-5.1)
[2018-01-27] MEDS: AMIODARONE HCL 200 MG TABLET PO SCH (08:51)
[2018-01-27] MEDS: ASPIRIN 325 MG TABLET PO SCH (08:51)
[2018-01-27] MEDS: FAMOTIDINE/PF 20 MG/2 ML VIAL IV SCH ×2 (08:51→21:49)
[2018-01-27] MEDS: FUROSEMIDE 10 MG/ML 4ML VIAL IVP SCH ×3 (08:51→21:50)
[2018-01-27] MEDS: METOPROLOL TARTRATE 25 MG TAB PO SCH ×2 (08:51→21:50)
[2018-01-27] MEDS: LEVOFLOXACIN 750 MG/D5W 150 ML 150 ML IV SCH (08:51)
[2018-01-27] MEDS: ENOXAPARIN SODIUM 80 MG/0.8 ML SQ SCH (08:52)
[2018-01-27] MEDS: CLOPIDOGREL BISULFATE 75 MG TAB PO SCH (08:52)
[2018-01-27] MEDS: ZOSYN 3.375GM+NS 50ML 50 ML IV SCH ×2 (10:03→21:50)
[2018-01-27] MEDS: FENTANYL 2500MCG+NS 250ML 250 ML IV PRN (10:03)
[2018-01-27] MEDS: PROPOFOL 1000 MG/100 ML IV PRN (13:03)
[2018-01-27] MEDS ORDERED: LIDOCAINE HCL 1% 20 ML VIAL ONE (13:36)
[2018-01-27] MEDS: ATORVASTATIN CALCIUM 40 MG TABLET PO SCH (21:50)
[2018-01-28] VITALS (24 sets, daily range): BP systolic 96–128; BP diastolic 36–56
[2018-01-28] MEDS: VANCOMYCIN 750MG + NS 250 ML IV SCH ×2 (00:06)
[2018-01-28] MEDS: FENTANYL 2500MCG+NS 250ML 250 ML IV PRN ×2 (02:00→17:32)
[2018-01-28] MEDS: PROPOFOL 1000 MG/100 ML IV PRN ×3 (02:12→17:31)
[2018-01-28 03:49] LABS: HEMATOCRIT 33.3 % (42-54); MEAN CORPUSCULAR HEMOGLOBIN 28.7 pg (27.0-33.0); MEAN CORPUSCULAR HGB CONC 32.1 g/dL (32.0-36.0); MEAN CORPUSCULAR VOLUME 89.6 fL (79-99); PLATELET COUNT (AUTO) 218 K/uL (130-400); RED BLOOD CELL COUNT(AUTO) 3.71 MIL/uL (4.50-6.20); RED CELL DISTRIBUTION WIDTH 16.3 % (11.0-15.5)
[2018-01-28 04:07] LABS: CREATININE 2.1 mg/dL (0.5-1.5); POTASSIUM 3.8 mmol/L (3.5-5.1)
[2018-01-28] MEDS: FUROSEMIDE 10 MG/ML 4ML VIAL IVP SCH ×3 (05:09→21:35)
[2018-01-28] MEDS: INSULIN LISPRO 100 UNIT/ML 3ML SQ SCH ×4 (06:00→18:00)
[2018-01-28] MEDS: DOBUTAMINE 250MG/D5 250ML 250 ML IV SCH ×2 (08:08→17:32)
[2018-01-28 08:20] LABS: ABG BASE EXCESS -0.3 mmol/L (-2.0-3.0); ABG HCO3 26.6 mmol/L (21.0-28.0); ABG OXYGEN SATURATION 95.5 % (95.0-99.0); ABG PCO2 52 mmHg (35-48)
[2018-01-28] MEDS: AMIODARONE HCL 200 MG TABLET PO SCH (08:38)
[2018-01-28] MEDS: ASPIRIN 325 MG TABLET PO SCH (08:38)
[2018-01-28] MEDS: FAMOTIDINE/PF 20 MG/2 ML VIAL IV SCH ×2 (08:38→21:02)
[2018-01-28] MEDS: CLOPIDOGREL BISULFATE 75 MG TAB PO SCH (08:38)
[2018-01-28] MEDS: METOPROLOL TARTRATE 25 MG TAB PO SCH ×2 (08:38→21:02)
[2018-01-28] MEDS: ENOXAPARIN SODIUM 80 MG/0.8 ML SQ SCH (08:38)
[2018-01-28] MEDS: ZOSYN 3.375GM+NS 50ML 50 ML IV SCH ×2 (09:39→21:35)
[2018-01-28] MEDS: VANCOMYCIN 1GM+NS 250ML 250 ML IV SCH (18:27)
[2018-01-28] MEDS: ATORVASTATIN CALCIUM 40 MG TABLET PO SCH (21:02)
[2018-01-29] VITALS (24 sets, daily range): BP systolic 90–159; BP diastolic 41–75
[2018-01-29] MEDS: PROPOFOL 1000 MG/100 ML IV PRN ×2 (00:26→07:11)
[2018-01-29 04:08] LABS: BASOPHILS % (AUTO) 0.7 % (0.0-5.0); EOSINOPHILS % (AUTO) 10.8 % (0.0-8.0); HEMATOCRIT 31.6 % (42-54); LYMPHOCYTES % (AUTO) 17.9 % (21.0-51.0); MEAN CORPUSCULAR HEMOGLOBIN 29.7 pg (27.0-33.0); MEAN CORPUSCULAR HGB CONC 33.2 g/dL (32.0-36.0); MEAN CORPUSCULAR VOLUME 89.2 fL (79-99); MONOCYTES % (AUTO) 10.1 % (3.0-13.0); NEUTROPHILS % (AUTO) 60.5 % (40.0-77.0); PLATELET COUNT (AUTO) 247 K/uL (130-400); RED BLOOD CELL COUNT(AUTO) 3.54 MIL/uL (4.50-6.20); RED CELL DISTRIBUTION WIDTH 16.2 % (11.0-15.5); WHITE BLOOD COUNT (AUTO) 7.9 K/uL (4.8-10.8)
[2018-01-29 04:18] LABS: CREATININE 1.6 mg/dL (0.5-1.5); MAGNESIUM 2.1 mg/dL (1.80-2.40); POTASSIUM 3.6 mmol/L (3.5-5.1)
[2018-01-29] MEDS: INSULIN LISPRO 100 UNIT/ML 3ML SQ SCH ×4 (06:00→18:00)
[2018-01-29] MEDS: FUROSEMIDE 10 MG/ML 4ML VIAL IVP SCH ×3 (06:38→21:30)
[2018-01-29] MEDS: DOBUTAMINE 250MG/D5 250ML 250 ML IV SCH (07:11)
[2018-01-29] MEDS: CLOPIDOGREL BISULFATE 75 MG TAB PO SCH (08:11)
[2018-01-29] MEDS: METOPROLOL TARTRATE 25 MG TAB PO SCH (08:11)
[2018-01-29] MEDS: FAMOTIDINE/PF 20 MG/2 ML VIAL IV SCH ×2 (08:11→20:39)
[2018-01-29] MEDS: ASPIRIN 325 MG TABLET PO SCH (08:11)
[2018-01-29] MEDS: AMIODARONE HCL 200 MG TABLET PO SCH (08:11)
[2018-01-29] MEDS: ENOXAPARIN SODIUM 80 MG/0.8 ML SQ SCH (08:15)
[2018-01-29 08:26] LABS: ABG BASE EXCESS 3.2 mmol/L (-2.0-3.0); ABG HCO3 29.6 mmol/L (21.0-28.0); ABG PCO2 52 mmHg (35-48)
[2018-01-29] MEDS: FENTANYL 2500MCG+NS 250ML 250 ML IV PRN (09:30)
[2018-01-29] MEDS: ZOSYN 3.375GM+NS 50ML 50 ML IV SCH ×2 (10:49→21:30)
[2018-01-29 13:40] LABS: ABG BASE EXCESS -2.7 mmol/L (-2.0-3.0); ABG HCO3 22.6 mmol/L (21.0-28.0); ABG OXYGEN SATURATION 97.1 % (95.0-99.0); ABG PCO2 41 mmHg (35-48)
[2018-01-29] MEDS: VANCOMYCIN 1GM+NS 250ML 250 ML IV SCH (18:49)
[2018-01-29] MEDS: POTASSIUM CHLORIDE 20MEQ/100ML 100 ML IV PRN ×2 (18:49→20:40)
[2018-01-29] MEDS: ATORVASTATIN CALCIUM 40 MG TABLET PO SCH (20:24)
[2018-01-30] VITALS (31 sets, daily range): BP systolic 99–144; BP diastolic 31–74
[2018-01-30] MEDS: POTASSIUM CHLORIDE 20MEQ/100ML 100 ML IV PRN (00:59)
[2018-01-30 04:00] LABS: ABG BASE EXCESS 4.3 mmol/L (-2.0-3.0); ABG HCO3 28.7 mmol/L (21.0-28.0); ABG OXYGEN SATURATION 96.6 % (95.0-99.0); ABG PCO2 42 mmHg (35-48)
[2018-01-30 04:30] LABS: HEMATOCRIT 33.8 % (42-54); MEAN CORPUSCULAR HEMOGLOBIN 29.1 pg (27.0-33.0); MEAN CORPUSCULAR HGB CONC 32.7 g/dL (32.0-36.0); MEAN CORPUSCULAR VOLUME 89.1 fL (79-99); PLATELET COUNT (AUTO) 263 K/uL (130-400); RED BLOOD CELL COUNT(AUTO) 3.79 MIL/uL (4.50-6.20); RED CELL DISTRIBUTION WIDTH 15.7 % (11.0-15.5); WHITE BLOOD COUNT (AUTO) 9.5 K/uL (4.8-10.8)
[2018-01-30 05:04] LABS: ALBUMIN 2.6 g/dL (3.5-5.0); BILIRUBIN,TOTAL 0.5 mg/dL (0.2-1.0); CREATININE 1.5 mg/dL (0.5-1.5); PHOSPHORUS 2.4 mg/dL (2.5-4.9); POTASSIUM 3.8 mmol/L (3.5-5.1); TOTAL PROTEIN, SERUM 7.1 g/dL (6.0-8.3)
[2018-01-30] MEDS: INSULIN LISPRO 100 UNIT/ML 3ML SQ SCH ×5 (06:00→21:07)
[2018-01-30] MEDS: FUROSEMIDE 10 MG/ML 4ML VIAL IVP SCH ×3 (06:04→21:23)
[2018-01-30] MEDS: DOBUTAMINE 250MG/D5 250ML 250 ML IV SCH (07:28)
[2018-01-30] MEDS ORDERED: METOPROLOL TARTRATE 1 MG/ML 5ML VIAL IV ONE (08:42)
[2018-01-30] MEDS ORDERED: METOPROLOL TARTRATE 1 MG/ML 5ML VIAL IV PRN (08:45)
[2018-01-30] MEDS ORDERED: DIGOXIN 250 MCG/ML 2ML AMP IV SCH (08:45)
[2018-01-30] MEDS: FAMOTIDINE/PF 20 MG/2 ML VIAL IV SCH ×2 (08:50→20:25)
[2018-01-30] MEDS: ASPIRIN 325 MG TABLET PO SCH (08:53)
[2018-01-30] MEDS: CLOPIDOGREL BISULFATE 75 MG TAB PO SCH (08:53)
[2018-01-30] MEDS: SPIRONOLACTONE 25 MG TAB PO SCH (08:53)
[2018-01-30] MEDS: ENOXAPARIN SODIUM 80 MG/0.8 ML SQ SCH (08:53)
[2018-01-30] MEDS: AMIODARONE HCL 200 MG TABLET PO SCH (08:54)
[2018-01-30] MEDS: ZOSYN 3.375GM+NS 50ML 50 ML IV SCH ×2 (11:20→21:23)
[2018-01-30] MEDS: METOPROLOL TARTRATE 25 MG TAB PO SCH ×2 (11:26→20:26)
[2018-01-30] MEDS: POTASSIUM CHLORIDE 20 MEQ ERTAB PO PRN (14:38)
[2018-01-30] MEDS: VANCOMYCIN 1GM+NS 250ML 250 ML IV SCH (19:11)
[2018-01-30] MEDS: ATORVASTATIN CALCIUM 40 MG TABLET PO SCH (20:26)
[2018-01-31] VITALS (7 sets, daily range): BP systolic 106–127; BP diastolic 46–58
[2018-01-31 05:14] LABS: BASOPHILS % (AUTO) 0.9 % (0.0-5.0); EOSINOPHILS % (AUTO) 7.1 % (0.0-8.0); HEMATOCRIT 35.1 % (42-54); MEAN CORPUSCULAR HEMOGLOBIN 28.2 pg (27.0-33.0); MEAN CORPUSCULAR HGB CONC 31.9 g/dL (32.0-36.0); MEAN CORPUSCULAR VOLUME 88.3 fL (79-99); MONOCYTES % (AUTO) 10.1 % (3.0-13.0); NEUTROPHILS % (AUTO) 59.9 % (40.0-77.0); PLATELET COUNT (AUTO) 258 K/uL (130-400); RED BLOOD CELL COUNT(AUTO) 3.98 MIL/uL (4.50-6.20); RED CELL DISTRIBUTION WIDTH 15.9 % (11.0-15.5); WHITE BLOOD COUNT (AUTO) 8.6 K/uL (4.8-10.8)
[2018-01-31 05:26] LABS: CREATININE 1.7 mg/dL (0.5-1.5); POTASSIUM 3.5 mmol/L (3.5-5.1)
[2018-01-31] MEDS: INSULIN LISPRO 100 UNIT/ML 3ML SQ SCH ×4 (06:00→21:42)
[2018-01-31] MEDS: FUROSEMIDE 10 MG/ML 4ML VIAL IVP SCH (06:18)
[2018-01-31] MEDS: METOPROLOL TARTRATE 25 MG TAB PO SCH ×2 (08:42→21:51)
[2018-01-31] MEDS: PANTOPRAZOLE SODIUM 40 MG TABLET.DR PO SCH (08:42)
[2018-01-31] MEDS: CLOPIDOGREL BISULFATE 75 MG TAB PO SCH (08:42)
[2018-01-31] MEDS: SPIRONOLACTONE 25 MG TAB PO SCH (08:43)
[2018-01-31] MEDS: ASPIRIN 325 MG TABLET PO SCH (08:43)
[2018-01-31] MEDS: FUROSEMIDE 40 MG TABLET PO SCH ×2 (08:44→21:51)
[2018-01-31] MEDS: AMIODARONE HCL 200 MG TABLET PO SCH (08:44)
[2018-01-31] MEDS: METOLAZONE 2.5 MG TABLET PO SCH (08:53)
[2018-01-31] MEDS: ENOXAPARIN SODIUM 80 MG/0.8 ML SQ SCH (08:53)
[2018-01-31] MEDS ORDERED: COMPOUND IV REFRIGERATED 1 EACH IVSOLN MISC PRN (09:30)
[2018-01-31] MEDS: ZOSYN 3.375GM+NS 50ML 50 ML IV SCH ×2 (09:51→21:50)
[2018-01-31] MEDS: VANCOMYCIN 750MG + NS 250 ML IV SCH ×2 (17:19)
[2018-01-31] MEDS: ATORVASTATIN CALCIUM 40 MG TABLET PO SCH (21:50)
[2018-02-01 03:48] VITALS: BP 105/53
[2018-02-01 03:59] LABS: HEMATOCRIT 37.5 % (42-54); MEAN CORPUSCULAR HEMOGLOBIN 29.2 pg (27.0-33.0); MEAN CORPUSCULAR HGB CONC 33.1 g/dL (32.0-36.0); MEAN CORPUSCULAR VOLUME 88.4 fL (79-99); PLATELET COUNT (AUTO) 332 K/uL (130-400); RED BLOOD CELL COUNT(AUTO) 4.25 MIL/uL (4.50-6.20); RED CELL DISTRIBUTION WIDTH 15.6 % (11.0-15.5); WHITE BLOOD COUNT (AUTO) 10.2 K/uL (4.8-10.8)
[2018-02-01 04:03] LABS: CREATININE 1.8 mg/dL (0.5-1.5); POTASSIUM 3.4 mmol/L (3.5-5.1)
[2018-02-01] MEDS: INSULIN LISPRO 100 UNIT/ML 3ML SQ SCH ×3 (06:00→18:00)
[2018-02-01] MEDS: METOLAZONE 2.5 MG TABLET PO SCH (06:26)
[2018-02-01] MEDS: PANTOPRAZOLE SODIUM 40 MG TABLET.DR PO SCH (06:26)
[2018-02-01 07:34] VITALS: BP 104/45
[2018-02-01] MEDS ORDERED: ENOXAPARIN SODIUM 30 MG/0.3 ML SQ SCH (09:00)
[2018-02-01] MEDS: CLOPIDOGREL BISULFATE 75 MG TAB PO SCH (09:00)
[2018-02-01] MEDS: ASPIRIN 325 MG TABLET PO SCH (09:00)
[2018-02-01] MEDS: METOPROLOL TARTRATE 25 MG TAB PO SCH (09:00)
[2018-02-01] MEDS: AMIODARONE HCL 200 MG TABLET PO SCH (09:00)
[2018-02-01] MEDS: SPIRONOLACTONE 25 MG TAB PO SCH (09:00)
[2018-02-01] MEDS: ZOSYN 3.375GM+NS 50ML 50 ML IV SCH (10:30)
[2018-02-01 11:04] VITALS: BP 116/59
[2018-02-01 16:20] VITALS: BP 106/51
[2018-02-01] MEDS: VANCOMYCIN 750MG + NS 250 ML IV SCH ×2 (17:45)
[2018-02-01] MEDS ORDERED: FUROSEMIDE 20 MG TABLET PO SCH (21:00)
[2018-02-03] MEDS ORDERED: METOLAZONE 2.5 MG TABLET PO SCH (09:00)
== END 2018-02-01 19:01 | DRG 871 ==
LOC: EDH 06:39 → EDHIP 08:16 → 2CH 09:00 → 3AH 01-25 16:27 → 3DH 01-26 06:22 → 2BH 01-26 07:59 → 2CH 01-31 00:48
PROVIDERS: ADMIT Internal Medicine; ATTEND Internal Medicine
PROC: 5A1945Z Respiratory Ventilation, 24-96 Consecutive Hours (ICD-10-PCS; principal; 2018-01-23)
PROC: 0BH17EZ Insertion of Endotracheal Airway into Trachea, Via Natural or Artificial Opening (ICD-10-PCS; 2018-01-23)
PROC: 02HV33Z Insertion of Infusion Device into Superior Vena Cava, Percutaneous Approach (ICD-10-PCS; 2018-01-24)
PROC: 5A1945Z Respiratory Ventilation, 24-96 Consecutive Hours (ICD-10-PCS; 2018-01-27)
DX: A41.9 Sepsis, unspecified organism (principal); R65.21 Severe sepsis with septic shock; I50.43 Acute on chronic combined systolic (congestive) and diastolic (congestive) heart failure; J96.01 Acute respiratory failure with hypoxia; I21.4 Non-ST elevation (NSTEMI) myocardial infarction; J18.9 Pneumonia, unspecified organism; J96.02 Acute respiratory failure with hypercapnia; I13.0 Hypertensive heart and chronic kidney disease with heart failure and stage 1 through stage 4 chronic kidney disease, or unspecified chronic kidney disease; N18.4 Chronic kidney disease, stage 4 (severe); E11.52 Type 2 diabetes mellitus with diabetic peripheral angiopathy with gangrene; J44.0 Chronic obstructive pulmonary disease with (acute) lower respiratory infection; N17.9 Acute kidney failure, unspecified; E11.51 Type 2 diabetes mellitus with diabetic peripheral angiopathy without gangrene; I25.5 Ischemic cardiomyopathy; E11.22 Type 2 diabetes mellitus with diabetic chronic kidney disease; E78.5 Hyperlipidemia, unspecified; F17.200 Nicotine dependence, unspecified, uncomplicated; I25.10 Atherosclerotic heart disease of native coronary artery without angina pectoris; I34.0 Nonrheumatic mitral (valve) insufficiency; I48.91 Unspecified atrial fibrillation; I25.2 Old myocardial infarction; Z89.421 Acquired absence of other right toe(s); Z95.828 Presence of other vascular implants and grafts; Z95.810 Presence of automatic (implantable) cardiac defibrillator; Z95.5 Presence of coronary angioplasty implant and graft; Z91.19 Patient's noncompliance with other medical treatment and regimen; Z82.49 Family history of ischemic heart disease and other diseases of the circulatory system
CPT/HCPCS: 31500; 36415; 36600; 71045; 71250; 80048; 80053; 80061; 80202; 80339; 81001; 82140; 82435; 82550; 82803; 82947; 82948; 83036; 83605; 83735; 83874; 83880; 84100; 84132; 84295; 84443; 84484; 85018; 85025; 85027; 85610; 85730; 87040; 87071; 87088; 87205; 87804; 92610; 93005; 93306; 94002; 94003; 94640; 94660; 97039; 99291; C1751; C1894; J1250; J1650; J1940; J1956; J2543; J2704; J3010; J3370; J3475; J3480; J3490; J7030

== ENCOUNTER → 2018-02-08 | Outpatient (CLI) | payer OTHER, MEDICARE ==
[2018-02-08 11:00] VITALS: BP 128/48
== END | disposition home or self-care (01) ==
LOC: WHH 09:45
PROVIDERS: ATTEND Podiatrist Foot & Ankle Surgery
DX: E11.621 Type 2 diabetes mellitus with foot ulcer (principal); I70.235 Atherosclerosis of native arteries of right leg with ulceration of other part of foot; L97.511 Non-pressure chronic ulcer of other part of right foot limited to breakdown of skin; I70.245 Atherosclerosis of native arteries of left leg with ulceration of other part of foot; L97.521 Non-pressure chronic ulcer of other part of left foot limited to breakdown of skin; I25.10 Atherosclerotic heart disease of native coronary artery without angina pectoris; J44.9 Chronic obstructive pulmonary disease, unspecified; I25.2 Old myocardial infarction; E11.52 Type 2 diabetes mellitus with diabetic peripheral angiopathy with gangrene; I96 Gangrene, not elsewhere classified; I48.91 Unspecified atrial fibrillation; E78.49 Other hyperlipidemia; E11.40 Type 2 diabetes mellitus with diabetic neuropathy, unspecified; E11.22 Type 2 diabetes mellitus with diabetic chronic kidney disease; I13.0 Hypertensive heart and chronic kidney disease with heart failure and stage 1 through stage 4 chronic kidney disease, or unspecified chronic kidney disease; N18.4 Chronic kidney disease, stage 4 (severe); I50.9 Heart failure, unspecified; E03.8 Other specified hypothyroidism; E66.9 Obesity, unspecified; G47.33 Obstructive sleep apnea (adult) (pediatric); F17.210 Nicotine dependence, cigarettes, uncomplicated; Z79.4 Long term (current) use of insulin; Z79.01 Long term (current) use of anticoagulants; Z89.421 Acquired absence of other right toe(s); Z68.24 Body mass index [BMI] 24.0-24.9, adult; Z95.810 Presence of automatic (implantable) cardiac defibrillator; Z95.5 Presence of coronary angioplasty implant and graft; Z95.828 Presence of other vascular implants and grafts; Z86.73 Personal history of transient ischemic attack (TIA), and cerebral infarction without residual deficits; Z95.1 Presence of aortocoronary bypass graft
CPT/HCPCS: 15275; A6207; Q4133

== ENCOUNTER → 2018-02-15 | Outpatient (CLI) | payer OTHER, MEDICARE ==
[2018-02-15 13:24] VITALS: BP 133/45
== END | disposition home or self-care (01) ==
LOC: WHH 08:25
PROVIDERS: ATTEND Podiatrist Foot & Ankle Surgery
DX: E11.621 Type 2 diabetes mellitus with foot ulcer (principal); I70.235 Atherosclerosis of native arteries of right leg with ulceration of other part of foot; L97.511 Non-pressure chronic ulcer of other part of right foot limited to breakdown of skin; I70.245 Atherosclerosis of native arteries of left leg with ulceration of other part of foot; L97.521 Non-pressure chronic ulcer of other part of left foot limited to breakdown of skin; I25.10 Atherosclerotic heart disease of native coronary artery without angina pectoris; J44.9 Chronic obstructive pulmonary disease, unspecified; I25.2 Old myocardial infarction; E11.52 Type 2 diabetes mellitus with diabetic peripheral angiopathy with gangrene; I96 Gangrene, not elsewhere classified; I48.91 Unspecified atrial fibrillation; E78.49 Other hyperlipidemia; E11.40 Type 2 diabetes mellitus with diabetic neuropathy, unspecified; E11.22 Type 2 diabetes mellitus with diabetic chronic kidney disease; I13.0 Hypertensive heart and chronic kidney disease with heart failure and stage 1 through stage 4 chronic kidney disease, or unspecified chronic kidney disease; N18.4 Chronic kidney disease, stage 4 (severe); I50.43 Acute on chronic combined systolic (congestive) and diastolic (congestive) heart failure; E03.8 Other specified hypothyroidism; E66.9 Obesity, unspecified; G47.33 Obstructive sleep apnea (adult) (pediatric); F17.210 Nicotine dependence, cigarettes, uncomplicated; Z79.4 Long term (current) use of insulin; Z79.01 Long term (current) use of anticoagulants; Z89.421 Acquired absence of other right toe(s); Z68.24 Body mass index [BMI] 24.0-24.9, adult; Z95.810 Presence of automatic (implantable) cardiac defibrillator; Z95.5 Presence of coronary angioplasty implant and graft; Z95.828 Presence of other vascular implants and grafts; Z86.73 Personal history of transient ischemic attack (TIA), and cerebral infarction without residual deficits; Z95.1 Presence of aortocoronary bypass graft
CPT/HCPCS: 15275; A6022; G0463; Q4133

== ENCOUNTER → 2018-02-22 | Outpatient (CLI) | payer OTHER, MEDICARE ==
[2018-02-22 12:47] VITALS: BP 113/58
== END | disposition home or self-care (01) ==
LOC: WHH 08:00
PROVIDERS: ATTEND Podiatrist Foot & Ankle Surgery
DX: E11.621 Type 2 diabetes mellitus with foot ulcer (principal); I70.235 Atherosclerosis of native arteries of right leg with ulceration of other part of foot; L97.512 Non-pressure chronic ulcer of other part of right foot with fat layer exposed; I70.245 Atherosclerosis of native arteries of left leg with ulceration of other part of foot; L97.522 Non-pressure chronic ulcer of other part of left foot with fat layer exposed; I25.10 Atherosclerotic heart disease of native coronary artery without angina pectoris; J44.9 Chronic obstructive pulmonary disease, unspecified; I25.2 Old myocardial infarction; E11.52 Type 2 diabetes mellitus with diabetic peripheral angiopathy with gangrene; I96 Gangrene, not elsewhere classified; I48.91 Unspecified atrial fibrillation; E78.49 Other hyperlipidemia; E11.40 Type 2 diabetes mellitus with diabetic neuropathy, unspecified; E11.22 Type 2 diabetes mellitus with diabetic chronic kidney disease; I13.0 Hypertensive heart and chronic kidney disease with heart failure and stage 1 through stage 4 chronic kidney disease, or unspecified chronic kidney disease; N18.4 Chronic kidney disease, stage 4 (severe); I50.43 Acute on chronic combined systolic (congestive) and diastolic (congestive) heart failure; E03.8 Other specified hypothyroidism; E66.9 Obesity, unspecified; G47.33 Obstructive sleep apnea (adult) (pediatric); F17.210 Nicotine dependence, cigarettes, uncomplicated; Z79.4 Long term (current) use of insulin; Z79.01 Long term (current) use of anticoagulants; Z89.421 Acquired absence of other right toe(s); Z68.24 Body mass index [BMI] 24.0-24.9, adult; Z95.810 Presence of automatic (implantable) cardiac defibrillator; Z95.5 Presence of coronary angioplasty implant and graft; Z95.828 Presence of other vascular implants and grafts; Z86.73 Personal history of transient ischemic attack (TIA), and cerebral infarction without residual deficits; Z95.1 Presence of aortocoronary bypass graft
CPT/HCPCS: 11042; 11045; A4450; A4649

== ENCOUNTER 2018-02-28 23:20 | Inpatient (IN) | payer OTHER, MEDICARE ==
[~2018-02-28] VITALS: Ht 175.3 cm; Wt 71.6 kg
[2018-02-28] MEDS ORDERED: PROPOFOL 1000 MG/100 ML 100 ML IV ONE (23:32)
[2018-02-28] MEDS ORDERED: VANCOMYCIN 1GM+NS 250ML 250 ML IV ONE (23:32)
[2018-02-28] MEDS ORDERED: SODIUM CHLORIDE 0.9% 1000ML 1,000 ML IV ONE (23:33)
[2018-02-28 23:40] LABS: BASOPHILS % (AUTO) 0.9 % (0.0-5.0); EOSINOPHILS % (AUTO) 4.6 % (0.0-8.0); HEMATOCRIT 39.9 % (42-54); MEAN CORPUSCULAR HEMOGLOBIN 29.4 pg (27.0-33.0); MEAN CORPUSCULAR HGB CONC 31.4 g/dL (32.0-36.0); MEAN CORPUSCULAR VOLUME 93.5 fL (79-99); MONOCYTES % (AUTO) 6.3 % (3.0-13.0); NEUTROPHILS % (AUTO) 29.2 % (40.0-77.0); PLATELET COUNT (AUTO) 331 K/uL (130-400); RED BLOOD CELL COUNT(AUTO) 4.27 MIL/uL (4.50-6.20); RED CELL DISTRIBUTION WIDTH 18.4 % (11.0-15.5); WHITE BLOOD COUNT (AUTO) 18.1 K/uL (4.8-10.8)
[2018-02-28] MEDS ORDERED: ZOSYN 3.375GM+NS 50ML 50 ML IV ONE (23:48)
[2018-02-28 23:54] LABS: CARBON DIOXIDE 23 mmol/L (21-32); CHLORIDE 103 mmol/L (101-111); CREATININE 1.9 mg/dL (0.5-1.5); GLOMERULAR FILTR. RATE CALC 37 mL/min (>60); GLUCOSE,RANDOM 269 mg/dL (70-105); INR 0.95 (0.85-1.15); PARTIAL THROMBOPLASTIN TIME 25.9 SEC (26.3-35.5); SODIUM SERUM 138 mmol/L (136-145); UREA NITROGEN, BLOOD 37 mg/dL (7-18)
[2018-03-01] VITALS (20 sets, daily range): BP systolic 93–126; BP diastolic 45–69
[2018-03-01 00:05] LABS: ALANINE AMINOTRANSFERASE 17 U/L (12-78); ALBUMIN 3.3 g/dL (3.5-5.0); ASPARTATE AMINOTRANSFERASE 18 U/L (10-37); BILIRUBIN,TOTAL 0.3 mg/dL (0.2-1.0); CREATINE KINASE, TOTAL 59 U/L (21-232); MYOGLOBIN 39 ng/mL (10-92); TOTAL PROTEIN, SERUM 7.7 g/dL (6.0-8.3); TROPONIN I < 0.04 ng/mL (0.00-0.06)
[2018-03-01 00:36] LABS: APPEARANCE,URINE Clear (CLEAR); BILIRUBIN,URINE Negative (NEGATIVE); COLOR,URINE Yellow (YELLOW); GLUCOSE, URINE (UA) Negative (NEGATIVE); KETONES,URINE Negative (NEGATIVE); LEUKOCYTE ESTERASE ,URINE Negative (NEGATIVE); NITRATE,URINE Negative (NEGATIVE); OCCULT BLOOD,URINE Negative (NEGATIVE); PROTEIN,URINE Negative (NEGATIVE); UROBILINOGEN,URINE 0.2 mg/dL (0.2-1.0)
[2018-03-01 00:46] LABS: ABG BASE EXCESS -11.1 mmol/L (-2.0-3.0); ABG HCO3 18.8 mmol/L (21.0-28.0); ABG OXYGEN SATURATION 96.6 % (95.0-99.0); ABG PCO2 59 mmHg (35-48)
[2018-03-01] MEDS ORDERED: FUROSEMIDE 10 MG/ML 4ML VIAL ONE (01:25)
[2018-03-01] MEDS ORDERED: ZOLPIDEM TARTRATE 5 MG TAB PO PRN (02:30)
[2018-03-01] MEDS ORDERED: ACETAMINOPHEN 650 MG SUPPOSITORY RC PRN (02:30)
[2018-03-01] MEDS ORDERED: LACTATED RINGERS 1000ML 1,000 ML IV SCH (02:30)
[2018-03-01 03:46] LABS: HEMATOCRIT 38.6 % (42-54); MEAN CORPUSCULAR HGB CONC 30.9 g/dL (32.0-36.0); MEAN CORPUSCULAR VOLUME 90.6 fL (79-99); PLATELET COUNT (AUTO) 270 K/uL (130-400); RED BLOOD CELL COUNT(AUTO) 4.26 MIL/uL (4.50-6.20); RED CELL DISTRIBUTION WIDTH 18.1 % (11.0-15.5); WHITE BLOOD COUNT (AUTO) 15.3 K/uL (4.8-10.8)
[2018-03-01 04:14] LABS: B-TYPE NATRIURETIC PEPTIDE 550 pg/mL (0-100)
[2018-03-01 04:19] LABS: MAGNESIUM 2.2 mg/dL (1.80-2.40); PHOSPHORUS 5.3 mg/dL (2.5-4.9); POTASSIUM 4.8 mmol/L (3.5-5.1)
[2018-03-01] MEDS ORDERED: METHYLPREDNISOLONE SOD SUCC 40MG/ML 1ML IVP SCH (06:00)
[2018-03-01] MEDS: IPRATROPIUM/ALBUTEROL SULFATE 3 ML SOLUTION IH SCH ×5 (06:37→21:22)
[2018-03-01] MEDS: BUDESONIDE 0.5 MG/2 ML INH IH SCH ×2 (07:04→18:25)
[2018-03-01] MEDS: FAMOTIDINE/PF 20 MG/2 ML VIAL IV SCH (08:47)
[2018-03-01] MEDS: ENOXAPARIN SODIUM 40 MG/0.4 ML SYRINGE SQ SCH (08:48)
[2018-03-01] MEDS: PROPOFOL 1000 MG/100 ML 100 ML IV PRN (10:45)
[2018-03-01 10:57] LABS: ABG BASE EXCESS -2.7 mmol/L (-2.0-3.0); ABG HCO3 20.9 mmol/L (21.0-28.0); ABG PCO2 33 mmHg (35-48)
[2018-03-01] MEDS ORDERED: ROCURONIUM BROMIDE 10MG/1ML 5ML VL IV ONE (12:00)
[2018-03-01] MEDS ORDERED: SUCCINYLCHOLINE CHLORIDE 20 MG/ML 10 ML VIAL IVP ONE ×2 (12:00)
[2018-03-01] MEDS ORDERED: ETOMIDATE 2 MG/ML 10 ML VIAL IVP ONE ×2 (12:00)
[2018-03-01 13:45] LABS: CREATININE 1.9 mg/dL (0.5-1.5); POTASSIUM 4.5 mmol/L (3.5-5.1)
[2018-03-01] MEDS: FUROSEMIDE 10 MG/ML 2ML VIAL IV SCH ×2 (14:10→20:23)
[2018-03-01] MEDS: HYDROCODONE/ACETAMINOPHEN 5/325 MG TAB PO PRN (14:10)
[2018-03-01] MEDS: METHYLPREDNISOLONE SOD SUCC 40MG/ML 1ML IVP SCH (20:23)
[2018-03-02] VITALS (40 sets, daily range): BP systolic 71–152; BP diastolic 34–95
[2018-03-02] MEDS: PROPOFOL 1000 MG/100 ML 100 ML IV PRN ×2 (00:43→18:26)
[2018-03-02] MEDS: HYDROCODONE/ACETAMINOPHEN 5/325 MG TAB PO PRN ×2 (00:44→09:20)
[2018-03-02] MEDS: IPRATROPIUM/ALBUTEROL SULFATE 3 ML SOLUTION IH SCH ×6 (01:50→21:10)
[2018-03-02 03:47] LABS: HEMATOCRIT 29.8 % (42-54); MEAN CORPUSCULAR HEMOGLOBIN 29.3 pg (27.0-33.0); MEAN CORPUSCULAR HGB CONC 33.2 g/dL (32.0-36.0); MEAN CORPUSCULAR VOLUME 88.2 fL (79-99); PLATELET COUNT (AUTO) 228 K/uL (130-400); RED BLOOD CELL COUNT(AUTO) 3.38 MIL/uL (4.50-6.20); RED CELL DISTRIBUTION WIDTH 17.7 % (11.0-15.5); WHITE BLOOD COUNT (AUTO) 9.6 K/uL (4.8-10.8)
[2018-03-02 03:54] LABS: POTASSIUM 4.6 mmol/L (3.5-5.1)
[2018-03-02] MEDS: FUROSEMIDE 10 MG/ML 2ML VIAL IV SCH ×2 (05:49→16:13)
[2018-03-02] MEDS: BUDESONIDE 0.5 MG/2 ML INH IH SCH ×2 (06:25→18:16)
[2018-03-02] MEDS: METHYLPREDNISOLONE SOD SUCC 40MG/ML 1ML IVP SCH ×2 (09:12→20:24)
[2018-03-02] MEDS: FAMOTIDINE/PF 20 MG/2 ML VIAL IV SCH (09:12)
[2018-03-02] MEDS: ENOXAPARIN SODIUM 40 MG/0.4 ML SYRINGE SQ SCH (09:13)
[2018-03-02 11:32] LABS: ABG HCO3 19.7 mmol/L (21.0-28.0); ABG PCO2 32 mmHg (35-48)
[2018-03-02] MEDS ORDERED: METOPROLOL TARTRATE 1 MG/ML 5ML VIAL IV ONE (12:11)
[2018-03-02] MEDS ORDERED: FENTANYL CITRATE PF 50 MCG/1 ML 2ML VIAL ONE (12:22)
[2018-03-02] MEDS ORDERED: FENTANYL CITRATE PF 50 MCG/1 ML 2ML VIAL IVP SCH (12:30)
[2018-03-02] MEDS ORDERED: FUROSEMIDE 10 MG/ML 2ML VIAL IV SCH (12:30)
[2018-03-02] MEDS: METOPROLOL TARTRATE 1 MG/ML 5ML VIAL IV SCH (12:45)
[2018-03-02] MEDS: PHENYLEPHRINE HCL 10 MG in SODIUM CHLORIDE 0.9% 250 ML IV SCH ×5 (14:31→22:52)
[2018-03-02] MEDS: FENTANYL 2500MCG+NS 250ML 250 ML IV PRN (14:32)
[2018-03-02 15:22] LABS: ABG BASE EXCESS -3.1 mmol/L (-2.0-3.0); ABG HCO3 21.1 mmol/L (21.0-28.0); ABG OXYGEN SATURATION 98.4 % (95.0-99.0); ABG PCO2 35 mmHg (35-48)
[2018-03-02] MEDS: METOPROLOL TARTRATE 25 MG TAB PO SCH (19:30)
[2018-03-02] MEDS: PREGABALIN 25 MG CAP PO SCH (21:20)
[2018-03-02] MEDS: ATORVASTATIN CALCIUM 40 MG TABLET PO SCH (21:20)
[2018-03-02] MEDS: FUROSEMIDE 10 MG/ML 4ML VIAL IV SCH (21:23)
[2018-03-03] VITALS (66 sets, daily range): BP systolic 77–124; BP diastolic 32–74
[2018-03-03] MEDS: IPRATROPIUM/ALBUTEROL SULFATE 3 ML SOLUTION IH SCH ×6 (01:29→22:15)
[2018-03-03] MEDS: PHENYLEPHRINE HCL 10 MG in SODIUM CHLORIDE 0.9% 250 ML IV SCH ×5 (01:30→18:04)
[2018-03-03] MEDS: PROPOFOL 1000 MG/100 ML 100 ML IV PRN ×4 (03:30→20:47)
[2018-03-03 03:47] LABS: HEMATOCRIT 36.2 % (42-54); MEAN CORPUSCULAR HEMOGLOBIN 28.3 pg (27.0-33.0); MEAN CORPUSCULAR HGB CONC 31.9 g/dL (32.0-36.0); MEAN CORPUSCULAR VOLUME 88.7 fL (79-99); NUCLEATED RED BLOOD CELLS 0.1 % (0.0-0.19); RED BLOOD CELL COUNT(AUTO) 4.08 MIL/uL (4.50-6.20); RED CELL DISTRIBUTION WIDTH 17.8 % (11.0-15.5); WHITE BLOOD COUNT (AUTO) 15.4 K/uL (4.8-10.8)
[2018-03-03 04:00] LABS: CREATININE 2.4 mg/dL (0.5-1.5); MAGNESIUM 2.1 mg/dL (1.80-2.40); PHOSPHORUS 4.4 mg/dL (2.5-4.9); POTASSIUM 4.4 mmol/L (3.5-5.1)
[2018-03-03 04:15] LABS: PLATELET COUNT (AUTO) 307 K/uL (130-400)
[2018-03-03] MEDS: FUROSEMIDE 10 MG/ML 4ML VIAL IV SCH ×2 (04:34→13:15)
[2018-03-03 04:38] LABS: ABG BASE EXCESS -2.1 mmol/L (-2.0-3.0); ABG HCO3 20.1 mmol/L (21.0-28.0); ABG OXYGEN SATURATION 98.2 % (95.0-99.0); ABG PCO2 28 mmHg (35-48)
[2018-03-03] MEDS: BUDESONIDE 0.5 MG/2 ML INH IH SCH ×2 (06:57→19:25)
[2018-03-03] MEDS: AMIODARONE HCL 200 MG TABLET PO SCH (08:33)
[2018-03-03] MEDS: FAMOTIDINE/PF 20 MG/2 ML VIAL IV SCH (08:33)
[2018-03-03] MEDS: ENOXAPARIN SODIUM 40 MG/0.4 ML SYRINGE SQ SCH (08:33)
[2018-03-03] MEDS: CLOPIDOGREL BISULFATE 75 MG TAB PO SCH (08:33)
[2018-03-03] MEDS: ASPIRIN 81MG TAB.CHEW PO SCH (08:33)
[2018-03-03] MEDS: SPIRONOLACTONE 25 MG TAB PO SCH (08:33)
[2018-03-03] MEDS: METHYLPREDNISOLONE SOD SUCC 40MG/ML 1ML IVP SCH ×2 (08:34→21:14)
[2018-03-03] MEDS: PREGABALIN 25 MG CAP PO SCH ×2 (08:44→21:14)
[2018-03-03] MEDS: METOPROLOL TARTRATE 25 MG TAB PO SCH ×2 (09:00→20:47)
[2018-03-03] MEDS: METOPROLOL TARTRATE 1 MG/ML 5ML VIAL IV SCH (12:45)
[2018-03-03] MEDS: FENTANYL 2500MCG+NS 250ML 250 ML IV PRN (16:34)
[2018-03-03] MEDS: ZOSYN 3.375GM+NS 50ML 50 ML IV SCH (18:04)
[2018-03-03 19:25] LABS: INR 1.01 (0.85-1.15); PROTHROMBIN TIME 10.6 SEC (9.6-11.6)
[2018-03-03] MEDS: ATORVASTATIN CALCIUM 40 MG TABLET PO SCH (21:14)
[2018-03-04] VITALS (65 sets, daily range): BP systolic 92–145; BP diastolic 41–98
[2018-03-04] MEDS: IPRATROPIUM/ALBUTEROL SULFATE 3 ML SOLUTION IH SCH ×6 (01:57→21:28)
[2018-03-04] MEDS: PHENYLEPHRINE HCL 10 MG in SODIUM CHLORIDE 0.9% 250 ML IV SCH ×2 (02:06→18:47)
[2018-03-04] MEDS: PROPOFOL 1000 MG/100 ML 100 ML IV PRN ×3 (02:30→18:34)
[2018-03-04 03:59] LABS: HEMATOCRIT 34.1 % (42-54); MEAN CORPUSCULAR HEMOGLOBIN 29.1 pg (27.0-33.0); MEAN CORPUSCULAR HGB CONC 32.3 g/dL (32.0-36.0); MEAN CORPUSCULAR VOLUME 89.9 fL (79-99); NUCLEATED RED BLOOD CELLS 0.3 % (0.0-0.19); PLATELET COUNT (AUTO) 261 K/uL (130-400); RED BLOOD CELL COUNT(AUTO) 3.79 MIL/uL (4.50-6.20); RED CELL DISTRIBUTION WIDTH 17.8 % (11.0-15.5); WHITE BLOOD COUNT (AUTO) 9.9 K/uL (4.8-10.8)
[2018-03-04 04:15] LABS: ALBUMIN 2.5 g/dL (3.5-5.0); BILIRUBIN,TOTAL 0.4 mg/dL (0.2-1.0); CREATININE 1.9 mg/dL (0.5-1.5); TOTAL PROTEIN, SERUM 6.4 g/dL (6.0-8.3)
[2018-03-04 04:36] LABS: B-TYPE NATRIURETIC PEPTIDE 946 pg/mL (0-100)
[2018-03-04] MEDS: ZOSYN 3.375GM+NS 50ML 50 ML IV SCH ×2 (04:41→18:34)
[2018-03-04] MEDS: BUDESONIDE 0.5 MG/2 ML INH IH SCH ×2 (07:11→19:29)
[2018-03-04] MEDS: METOPROLOL TARTRATE 25 MG TAB PO SCH ×2 (09:00→20:48)
[2018-03-04] MEDS: ENOXAPARIN SODIUM 40 MG/0.4 ML SYRINGE SQ SCH (09:00)
[2018-03-04] MEDS: METHYLPREDNISOLONE SOD SUCC 40MG/ML 1ML IVP SCH ×2 (09:24→21:23)
[2018-03-04] MEDS: SPIRONOLACTONE 25 MG TAB PO SCH (09:24)
[2018-03-04] MEDS: PREGABALIN 25 MG CAP PO SCH ×2 (09:24→20:48)
[2018-03-04] MEDS: CLOPIDOGREL BISULFATE 75 MG TAB PO SCH (09:24)
[2018-03-04] MEDS: ASPIRIN 81MG TAB.CHEW PO SCH (09:24)
[2018-03-04] MEDS: AMIODARONE HCL 200 MG TABLET PO SCH (09:24)
[2018-03-04] MEDS: FAMOTIDINE/PF 20 MG/2 ML VIAL IV SCH (09:24)
[2018-03-04] MEDS ORDERED: DOBUTAMINE 250MG/D5 250ML 250 ML IV SCH (10:45)
[2018-03-04] MEDS ORDERED: INSULIN HUMULIN R 100 UNIT/ML 3ML SQ SCH (11:30)
[2018-03-04] MEDS: FUROSEMIDE 10 MG/ML 4ML VIAL IV SCH ×2 (11:36→23:19)
[2018-03-04] MEDS: MILRINONE-D5W 20 MG/100 ML 100 ML IV SCH ×2 (11:41→19:32)
[2018-03-04] MEDS: METOPROLOL TARTRATE 1 MG/ML 5ML VIAL IV SCH (12:45)
[2018-03-04] MEDS: INSULIN HUMULIN R 100 UNIT/ML 3ML SQ SCH (18:00)
[2018-03-04] MEDS: FENTANYL 2500MCG+NS 250ML 250 ML IV PRN (19:34)
[2018-03-04 20:33] LABS: ABG BASE EXCESS -4.2 mmol/L (-2.0-3.0); ABG HCO3 21.2 mmol/L (21.0-28.0); ABG OXYGEN SATURATION 97.4 % (95.0-99.0); ABG PCO2 40 mmHg (35-48)
[2018-03-04] MEDS: ATORVASTATIN CALCIUM 40 MG TABLET PO SCH (20:47)
[2018-03-05] VITALS (41 sets, daily range): BP systolic 68–127; BP diastolic 29–69
[2018-03-05] MEDS: INSULIN HUMULIN R 100 UNIT/ML 3ML SQ SCH ×4 (00:32→21:04)
[2018-03-05] MEDS: IPRATROPIUM/ALBUTEROL SULFATE 3 ML SOLUTION IH SCH ×6 (02:06→21:30)
[2018-03-05] MEDS: PHENYLEPHRINE HCL 10 MG in SODIUM CHLORIDE 0.9% 250 ML IV SCH ×2 (02:24→23:16)
[2018-03-05 04:36] LABS: BASOPHILS % (AUTO) 0.1 % (0.0-5.0); CREATININE 1.9 mg/dL (0.5-1.5); HEMATOCRIT 30.5 % (42-54); LYMPHOCYTES % (AUTO) 6.6 % (21.0-51.0); MEAN CORPUSCULAR HEMOGLOBIN 28.8 pg (27.0-33.0); MEAN CORPUSCULAR HGB CONC 32.5 g/dL (32.0-36.0); MEAN CORPUSCULAR VOLUME 88.7 fL (79-99); MONOCYTES % (AUTO) 4.5 % (3.0-13.0); NEUTROPHILS % (AUTO) 88.8 % (40.0-77.0); PLATELET COUNT (AUTO) 236 K/uL (130-400); RED BLOOD CELL COUNT(AUTO) 3.44 MIL/uL (4.50-6.20); RED CELL DISTRIBUTION WIDTH 17.4 % (11.0-15.5); WHITE BLOOD COUNT (AUTO) 11.3 K/uL (4.8-10.8)
[2018-03-05 04:37] LABS: B-TYPE NATRIURETIC PEPTIDE 607 pg/mL (0-100)
[2018-03-05] MEDS: ZOSYN 3.375GM+NS 50ML 50 ML IV SCH ×2 (05:41→17:48)
[2018-03-05] MEDS: BUDESONIDE 0.5 MG/2 ML INH IH SCH ×2 (07:13→18:52)
[2018-03-05] MEDS: MILRINONE-D5W 20 MG/100 ML 100 ML IV SCH (07:56)
[2018-03-05] MEDS ORDERED: DIGOXIN 250 MCG/ML 2ML AMP ONE (08:29)
[2018-03-05] MEDS ORDERED: DIGOXIN 250 MCG/ML 2ML AMP IV SCH ×3 (08:29→20:30)
[2018-03-05] MEDS: METHYLPREDNISOLONE SOD SUCC 40MG/ML 1ML IVP SCH ×2 (09:00→20:08)
[2018-03-05 10:34] LABS: APPEARANCE BODY FLUID CLOUDY (CLEAR); COLOR,BODY FLUID YELLOW (LT YELLOW); SPECIMENTYPE,BODY FLUID PLEURAL; TOTAL VOLUME,BODY FLUID 885 mL
[2018-03-05 10:35] LABS: BODY FLUID RBC 1900 /cu. mm.; BODY FLUID WBC 325 /cu. mm.
[2018-03-05 11:09] LABS: BF LYMPHOCYTE 43 %; BF MESOTHELIAL 4 %; BF MONOCYTE 2 %
[2018-03-05] MEDS: PREGABALIN 25 MG CAP PO SCH ×2 (11:45→20:08)
[2018-03-05] MEDS: ASPIRIN 81MG TAB.CHEW PO SCH (11:46)
[2018-03-05] MEDS: FUROSEMIDE 10 MG/ML 4ML VIAL IV SCH ×2 (11:46→22:45)
[2018-03-05] MEDS: AMIODARONE HCL 200 MG TABLET PO SCH (11:46)
[2018-03-05] MEDS: FAMOTIDINE/PF 20 MG/2 ML VIAL IV SCH (11:47)
[2018-03-05] MEDS ORDERED: METOPROLOL TARTRATE 1 MG/ML 5ML VIAL IV PRN ×2 (15:23→22:30)
[2018-03-05] MEDS ORDERED: METOPROLOL TARTRATE 1 MG/ML 5ML VIAL IV ONE (15:24)
[2018-03-05] MEDS: ENOXAPARIN SODIUM 40 MG/0.4 ML SYRINGE SQ SCH (17:48)
[2018-03-05] MEDS: CLOPIDOGREL BISULFATE 75 MG TAB PO SCH (17:49)
[2018-03-05] MEDS: ATORVASTATIN CALCIUM 40 MG TABLET PO SCH (20:08)
[2018-03-05] MEDS ORDERED: MAGNESIUM 2GM PREMIX 50ML 50 ML IV PRN (22:45)
[2018-03-05] MEDS ORDERED: POTASSIUM CHLORIDE 10MEQ/100ML 100 ML IV PRN (22:45)
[2018-03-05] MEDS ORDERED: POTASSIUM CHLORIDE 10% ELIXIR 20 MEQ/15 ML UDCUP PO PRN (22:45)
[2018-03-05] MEDS ORDERED: POTASSIUM CHLORIDE 20 MEQ ERTAB PO PRN (22:45)
[2018-03-05] MEDS ORDERED: LIDOCAINE HCL-MPF 1% 2ML VIAL IVP PRN (22:45)
[2018-03-05 22:58] LABS: MAGNESIUM 1.9 mg/dL (1.80-2.40); POTASSIUM 3.5 mmol/L (3.5-5.1)
[2018-03-05] MEDS ORDERED: POTASSIUM CHLORIDE 10 MEQ/TAB.SA PO ONE (23:09)
[2018-03-05] MEDS ORDERED: MAGNESIUM 2GM PREMIX 50ML 50 ML IV ONE (23:09)
[2018-03-06] VITALS (24 sets, daily range): BP systolic 91–135; BP diastolic 44–62
[2018-03-06] MEDS: ZOSYN 3.375GM+NS 50ML 50 ML IV SCH ×2 (04:30→17:39)
[2018-03-06 04:59] LABS: HEMATOCRIT 32.3 % (42-54); MEAN CORPUSCULAR HEMOGLOBIN 29.5 pg (27.0-33.0); MEAN CORPUSCULAR HGB CONC 33.1 g/dL (32.0-36.0); PLATELET COUNT (AUTO) 258 K/uL (130-400); RED BLOOD CELL COUNT(AUTO) 3.63 MIL/uL (4.50-6.20); RED CELL DISTRIBUTION WIDTH 17.2 % (11.0-15.5)
[2018-03-06 05:03] LABS: CREATININE 1.6 mg/dL (0.5-1.5); POTASSIUM 4.8 mmol/L (3.5-5.1)
[2018-03-06] MEDS ORDERED: IPRATROPIUM 0.5 MG/2.5 ML INH IH SCH (06:00)
[2018-03-06] MEDS: INSULIN HUMULIN R 100 UNIT/ML 3ML SQ SCH ×5 (06:00→21:00)
[2018-03-06] MEDS: BUDESONIDE 0.5 MG/2 ML INH IH SCH ×2 (06:57→18:19)
[2018-03-06] MEDS: FAMOTIDINE/PF 20 MG/2 ML VIAL IV SCH (08:00)
[2018-03-06] MEDS: CLOPIDOGREL BISULFATE 75 MG TAB PO SCH (08:01)
[2018-03-06] MEDS: PREGABALIN 25 MG CAP PO SCH ×2 (08:01→21:05)
[2018-03-06] MEDS: AMIODARONE HCL 200 MG TABLET PO SCH (08:01)
[2018-03-06] MEDS: ASPIRIN 81MG TAB.CHEW PO SCH (08:01)
[2018-03-06] MEDS: ENOXAPARIN SODIUM 40 MG/0.4 ML SYRINGE SQ SCH (08:07)
[2018-03-06] MEDS: METHYLPREDNISOLONE SOD SUCC 40MG/ML 1ML IVP SCH ×2 (08:10→21:05)
[2018-03-06] MEDS: FUROSEMIDE 10 MG/ML 4ML VIAL IV SCH ×2 (10:47→22:27)
[2018-03-06] MEDS ORDERED: IPRATROPIUM 0.5 MG/2.5 ML INH IH PRN (11:00)
[2018-03-06] MEDS: DIGOXIN 125 MCG TABLET PO SCH (17:39)
[2018-03-06] MEDS: HONEY 1 APPL/ML TUBE TP SCH (17:43)
[2018-03-06] MEDS ORDERED: MAGNESIUM CITRATE 296 ML SOLUTION PO SCH (21:00)
[2018-03-06] MEDS: ATORVASTATIN CALCIUM 40 MG TABLET PO SCH (21:05)
[2018-03-07] VITALS (16 sets, daily range): BP systolic 75–141; BP diastolic 29–57
[2018-03-07 04:19] LABS: CREATININE 1.9 mg/dL (0.5-1.5); MAGNESIUM 2.4 mg/dL (1.80-2.40); POTASSIUM 4.8 mmol/L (3.5-5.1)
[2018-03-07] MEDS: ZOSYN 3.375GM+NS 50ML 50 ML IV SCH ×2 (04:31→17:35)
[2018-03-07] MEDS: INSULIN HUMULIN R 100 UNIT/ML 3ML SQ SCH ×4 (05:48→21:00)
[2018-03-07] MEDS: BUDESONIDE 0.5 MG/2 ML INH IH SCH ×2 (07:29→18:44)
[2018-03-07] MEDS: METOPROLOL TARTRATE 25 MG TAB PO SCH ×2 (09:55→22:00)
[2018-03-07] MEDS: ASPIRIN 81MG TAB.CHEW PO SCH (09:56)
[2018-03-07] MEDS: AMIODARONE HCL 200 MG TABLET PO SCH (09:56)
[2018-03-07] MEDS: FAMOTIDINE 20MG TAB 20 MG TAB PO SCH (09:57)
[2018-03-07] MEDS: CLOPIDOGREL BISULFATE 75 MG TAB PO SCH (09:57)
[2018-03-07] MEDS: METHYLPREDNISOLONE SOD SUCC 40MG/ML 1ML IVP SCH ×2 (09:57→22:01)
[2018-03-07] MEDS: ENOXAPARIN SODIUM 40 MG/0.4 ML SYRINGE SQ SCH (09:59)
[2018-03-07] MEDS: FUROSEMIDE 10 MG/ML 4ML VIAL IV SCH ×2 (10:01→22:03)
[2018-03-07] MEDS: PREGABALIN 25 MG CAP PO SCH ×2 (10:08→22:00)
[2018-03-07] MEDS: DIGOXIN 125 MCG TABLET PO SCH (17:34)
[2018-03-07] MEDS: ATORVASTATIN CALCIUM 40 MG TABLET PO SCH (22:00)
[2018-03-07] MEDS: HONEY 1 APPL/ML TUBE TP SCH (22:21)
[2018-03-07] MEDS: HYDROCODONE/ACETAMINOPHEN 5/325 MG TAB PO PRN (22:40)
[2018-03-08 03:23] VITALS: BP 103/47
[2018-03-08] MEDS: ZOSYN 3.375GM+NS 50ML 50 ML IV SCH ×2 (04:52→16:29)
[2018-03-08] MEDS: BUDESONIDE 0.5 MG/2 ML INH IH SCH ×2 (06:21→18:19)
[2018-03-08] MEDS: INSULIN HUMULIN R 100 UNIT/ML 3ML SQ SCH ×4 (06:48→23:35)
[2018-03-08 07:56] VITALS: BP 108/51
[2018-03-08] MEDS: METOPROLOL TARTRATE 25 MG TAB PO SCH ×2 (10:08→20:54)
[2018-03-08] MEDS: FAMOTIDINE 20MG TAB 20 MG TAB PO SCH (10:08)
[2018-03-08] MEDS: ASPIRIN 81MG TAB.CHEW PO SCH (10:08)
[2018-03-08] MEDS: METHYLPREDNISOLONE SOD SUCC 40MG/ML 1ML IVP SCH (10:08)
[2018-03-08] MEDS: FUROSEMIDE 10 MG/ML 4ML VIAL IV SCH (10:08)
[2018-03-08] MEDS: AMIODARONE HCL 200 MG TABLET PO SCH (10:09)
[2018-03-08] MEDS: CLOPIDOGREL BISULFATE 75 MG TAB PO SCH (10:09)
[2018-03-08] MEDS: PREGABALIN 25 MG CAP PO SCH ×2 (10:10→20:54)
[2018-03-08] MEDS: ENOXAPARIN SODIUM 40 MG/0.4 ML SYRINGE SQ SCH (10:10)
[2018-03-08 11:40] VITALS: BP 105/51
[2018-03-08] MEDS: DIGOXIN 125 MCG TABLET PO SCH (16:23)
[2018-03-08 16:28] VITALS: BP 103/70
[2018-03-08 19:38] VITALS: BP 105/42
[2018-03-08] MEDS: ATORVASTATIN CALCIUM 40 MG TABLET PO SCH (20:53)
[2018-03-08] MEDS: HYDROCODONE/ACETAMINOPHEN 5/325 MG TAB PO PRN (20:54)
[2018-03-08 23:20] VITALS: BP 144/96
[2018-03-08] MEDS: HONEY 1 APPL/ML TUBE TP SCH (23:41)
[2018-03-09 03:51] VITALS: BP 137/67
[2018-03-09] MEDS: INSULIN HUMULIN R 100 UNIT/ML 3ML SQ SCH ×3 (05:24→16:30)
[2018-03-09] MEDS: ZOSYN 3.375GM+NS 50ML 50 ML IV SCH ×2 (05:32→17:30)
[2018-03-09] MEDS: BUDESONIDE 0.5 MG/2 ML INH IH SCH (06:40)
[2018-03-09 07:37] VITALS: BP 101/50
[2018-03-09] MEDS: METOPROLOL TARTRATE 25 MG TAB PO SCH (08:28)
[2018-03-09] MEDS: ASPIRIN 81MG TAB.CHEW PO SCH (08:28)
[2018-03-09] MEDS: FAMOTIDINE 20MG TAB 20 MG TAB PO SCH (08:28)
[2018-03-09] MEDS: AMIODARONE HCL 200 MG TABLET PO SCH (08:28)
[2018-03-09] MEDS: HYDROCODONE/ACETAMINOPHEN 5/325 MG TAB PO PRN (08:29)
[2018-03-09] MEDS: PREGABALIN 25 MG CAP PO SCH (08:29)
[2018-03-09] MEDS: CLOPIDOGREL BISULFATE 75 MG TAB PO SCH (08:29)
[2018-03-09] MEDS: ENOXAPARIN SODIUM 40 MG/0.4 ML SYRINGE SQ SCH (08:31)
[2018-03-09] MEDS ORDERED: FUROSEMIDE 40 MG TABLET PO SCH (09:00)
[2018-03-09] MEDS ORDERED: PREDNISONE 20 MG TABLET PO SCH (09:00)
[2018-03-09 11:36] VITALS: BP 79/42
[2018-03-09] MEDS: DIGOXIN 125 MCG TABLET PO SCH (16:00)
== END 2018-03-09 17:50 | disposition home or self-care (01) | DRG 871 ==
LOC: EDH 23:20 → EDHIP 03-01 01:52 → 2CH 03-01 02:31 → 2DH 03-07 19:11
PROVIDERS: ADMIT Internal Medicine; ATTEND Internal Medicine
PROC: 0BH17EZ Insertion of Endotracheal Airway into Trachea, Via Natural or Artificial Opening (ICD-10-PCS; principal; 2018-03-01)
PROC: 5A1945Z Respiratory Ventilation, 24-96 Consecutive Hours (ICD-10-PCS; 2018-03-01)
PROC: 0W993ZZ Drainage of Right Pleural Cavity, Percutaneous Approach (ICD-10-PCS; 2018-03-05)
DX: A41.9 Sepsis, unspecified organism (principal); R57.0 Cardiogenic shock; R65.21 Severe sepsis with septic shock; J96.01 Acute respiratory failure with hypoxia; I50.43 Acute on chronic combined systolic (congestive) and diastolic (congestive) heart failure; J18.9 Pneumonia, unspecified organism; I13.0 Hypertensive heart and chronic kidney disease with heart failure and stage 1 through stage 4 chronic kidney disease, or unspecified chronic kidney disease; I47.1 Supraventricular tachycardia; J44.0 Chronic obstructive pulmonary disease with (acute) lower respiratory infection; J44.1 Chronic obstructive pulmonary disease with (acute) exacerbation; L97.409 Non-pressure chronic ulcer of unspecified heel and midfoot with unspecified severity; N17.9 Acute kidney failure, unspecified; I25.5 Ischemic cardiomyopathy; E11.51 Type 2 diabetes mellitus with diabetic peripheral angiopathy without gangrene; F17.200 Nicotine dependence, unspecified, uncomplicated; I25.10 Atherosclerotic heart disease of native coronary artery without angina pectoris; E11.22 Type 2 diabetes mellitus with diabetic chronic kidney disease; E11.621 Type 2 diabetes mellitus with foot ulcer; E78.5 Hyperlipidemia, unspecified; F10.20 Alcohol dependence, uncomplicated; I48.91 Unspecified atrial fibrillation; N18.3 Chronic kidney disease, stage 3 (moderate); I25.2 Old myocardial infarction; Z74.01 Bed confinement status
CPT/HCPCS: 31500; 32554; 36415; 36600; 71045; 71250; 80048; 80053; 81003; 82550; 82803; 82948; 83605; 83615; 83735; 83874; 83880; 84100; 84132; 84146; 84157; 84484; 85025; 85027; 85305; 85306; 85378; 85610; 85730; 87040; 87071; 87088; 87205; 87804; 88108; 88305; 89051; 92526; 92610; 93005; 93970; 94003; 94640; 94660; 94664; 94760; 97039; 99291; A4218; C1729; C1751; C1894; C9113; G0378; J0330; J1160; J1650; J1815; J1940; J2260; J2370; J2543; J2704; J2920; J3010; J3370; J3475; J3490; J7030

== ENCOUNTER → 2018-03-15 | Outpatient (CLI) | payer OTHER, MEDICARE ==
[~2018-03-15] MED LIST changes: +HONEY 1 APPL/ML TUBE TP ONE; +LIDOCAINE HCL 2% JELLY 5 ML TP ONE; -[UNRECOGNIZED DRUG - CODE] IV
[2018-03-15 14:10] VITALS: BP 130/58
== END | disposition home or self-care (01) ==
LOC: WHH 10:40
PROVIDERS: ATTEND Podiatrist Foot & Ankle Surgery
DX: E11.621 Type 2 diabetes mellitus with foot ulcer (principal); I70.235 Atherosclerosis of native arteries of right leg with ulceration of other part of foot; L97.512 Non-pressure chronic ulcer of other part of right foot with fat layer exposed; E11.42 Type 2 diabetes mellitus with diabetic polyneuropathy; E11.21 Type 2 diabetes mellitus with diabetic nephropathy; E11.52 Type 2 diabetes mellitus with diabetic peripheral angiopathy with gangrene; I96 Gangrene, not elsewhere classified; E11.22 Type 2 diabetes mellitus with diabetic chronic kidney disease; I13.0 Hypertensive heart and chronic kidney disease with heart failure and stage 1 through stage 4 chronic kidney disease, or unspecified chronic kidney disease; N18.4 Chronic kidney disease, stage 4 (severe); I50.43 Acute on chronic combined systolic (congestive) and diastolic (congestive) heart failure; I25.10 Atherosclerotic heart disease of native coronary artery without angina pectoris; I48.91 Unspecified atrial fibrillation; J44.1 Chronic obstructive pulmonary disease with (acute) exacerbation; I25.2 Old myocardial infarction; E03.8 Other specified hypothyroidism; E78.49 Other hyperlipidemia; G47.33 Obstructive sleep apnea (adult) (pediatric); E66.9 Obesity, unspecified; I47.1 Supraventricular tachycardia; F17.210 Nicotine dependence, cigarettes, uncomplicated; F10.20 Alcohol dependence, uncomplicated; Z79.01 Long term (current) use of anticoagulants; Z79.4 Long term (current) use of insulin; Z68.24 Body mass index [BMI] 24.0-24.9, adult; Z86.73 Personal history of transient ischemic attack (TIA), and cerebral infarction without residual deficits; Z95.1 Presence of aortocoronary bypass graft; Z95.810 Presence of automatic (implantable) cardiac defibrillator; Z98.61 Coronary angioplasty status; Z89.421 Acquired absence of other right toe(s)
CPT/HCPCS: 11042; 11045

== ENCOUNTER → 2018-03-29 | Outpatient (CLI) | payer OTHER, MEDICARE ==
[~2018-03-29] MED LIST changes: -HONEY 1 APPL/ML TUBE TP ONE
[2018-03-29 14:31] VITALS: BP 110/49
== END | disposition home or self-care (01) ==
LOC: WHH 08:00
PROVIDERS: ATTEND Podiatrist Foot & Ankle Surgery
DX: E11.621 Type 2 diabetes mellitus with foot ulcer (principal); I70.235 Atherosclerosis of native arteries of right leg with ulceration of other part of foot; L97.512 Non-pressure chronic ulcer of other part of right foot with fat layer exposed; R60.0 Localized edema; I25.10 Atherosclerotic heart disease of native coronary artery without angina pectoris; J44.1 Chronic obstructive pulmonary disease with (acute) exacerbation; E11.52 Type 2 diabetes mellitus with diabetic peripheral angiopathy with gangrene; I96 Gangrene, not elsewhere classified; E11.21 Type 2 diabetes mellitus with diabetic nephropathy; E11.42 Type 2 diabetes mellitus with diabetic polyneuropathy; E11.22 Type 2 diabetes mellitus with diabetic chronic kidney disease; I13.0 Hypertensive heart and chronic kidney disease with heart failure and stage 1 through stage 4 chronic kidney disease, or unspecified chronic kidney disease; N18.4 Chronic kidney disease, stage 4 (severe); I50.43 Acute on chronic combined systolic (congestive) and diastolic (congestive) heart failure; E66.9 Obesity, unspecified; I25.2 Old myocardial infarction; E78.49 Other hyperlipidemia; E03.8 Other specified hypothyroidism; I48.91 Unspecified atrial fibrillation; G47.33 Obstructive sleep apnea (adult) (pediatric); F17.200 Nicotine dependence, unspecified, uncomplicated; F10.20 Alcohol dependence, uncomplicated; Z68.24 Body mass index [BMI] 24.0-24.9, adult; Z95.1 Presence of aortocoronary bypass graft; Z95.810 Presence of automatic (implantable) cardiac defibrillator; Z95.818 Presence of other cardiac implants and grafts; Z86.73 Personal history of transient ischemic attack (TIA), and cerebral infarction without residual deficits; Z79.4 Long term (current) use of insulin; Z79.01 Long term (current) use of anticoagulants; Z79.899 Other long term (current) drug therapy
CPT/HCPCS: 11042; 11045

== ENCOUNTER → 2018-04-26 | Outpatient (CLI) | payer OTHER, MEDICARE ==
[~2018-04-26] MED LIST changes: +ACET1TAB25 PO; -AMIO400T4 PO; +APIX5TAB PO; +BUDE0.5A8 IH; +DIGO125T87 PO; -FURO20TA6 PO; +FURO40TA5 PO; -HYDR-4060 PO; +IPRA4AER IH; -LIDOCAINE HCL 2% JELLY 5 ML TP ONE; +LISI2.5T2 PO; +METF-444 PO; -SPIR25TA6 PO
[2018-04-26 15:00] VITALS: BP 91/46
== END | disposition home or self-care (01) ==
LOC: WHH 08:00
PROVIDERS: ATTEND Podiatrist Foot & Ankle Surgery
DX: T87.89 Other complications of amputation stump (principal); E11.621 Type 2 diabetes mellitus with foot ulcer; L97.512 Non-pressure chronic ulcer of other part of right foot with fat layer exposed; E11.52 Type 2 diabetes mellitus with diabetic peripheral angiopathy with gangrene; I96 Gangrene, not elsewhere classified; E11.40 Type 2 diabetes mellitus with diabetic neuropathy, unspecified; E11.21 Type 2 diabetes mellitus with diabetic nephropathy; E11.22 Type 2 diabetes mellitus with diabetic chronic kidney disease; I13.0 Hypertensive heart and chronic kidney disease with heart failure and stage 1 through stage 4 chronic kidney disease, or unspecified chronic kidney disease; I50.22 Chronic systolic (congestive) heart failure; N18.4 Chronic kidney disease, stage 4 (severe); I25.10 Atherosclerotic heart disease of native coronary artery without angina pectoris; I48.2 Chronic atrial fibrillation; I25.2 Old myocardial infarction; E78.49 Other hyperlipidemia; G47.30 Sleep apnea, unspecified; E03.8 Other specified hypothyroidism; Z79.01 Long term (current) use of anticoagulants; Z86.718 Personal history of other venous thrombosis and embolism; Z79.4 Long term (current) use of insulin; Z87.891 Personal history of nicotine dependence; Y83.5 Amputation of limb(s) as the cause of abnormal reaction of the patient, or of later complication, without mention of misadventure at the time of the procedure
CPT/HCPCS: 11042; 11045

== ENCOUNTER 2018-05-07 10:40 | Emergency (ER) | payer OTHER, MEDICARE ==
[2018-05-07] MEDS ORDERED: NITROGLYCERIN 1GM/1 INCH PACKET TD ONE (11:00)
[2018-05-07 11:16] LABS: BASOPHILS % (AUTO) 0.1 % (0.0-5.0); EOSINOPHILS % (AUTO) 2.2 % (0.0-8.0); HEMATOCRIT 30.3 % (42-54); LYMPHOCYTES % (AUTO) 17.1 % (21.0-51.0); MEAN CORPUSCULAR HEMOGLOBIN 28.1 pg (27.0-33.0); MEAN CORPUSCULAR HGB CONC 31.5 g/dL (32.0-36.0); MEAN CORPUSCULAR VOLUME 89.2 fL (79-99); MONOCYTES % (AUTO) 6.8 % (3.0-13.0); NEUTROPHILS % (AUTO) 73.8 % (40.0-77.0); NUCLEATED RED BLOOD CELLS 0.1 % (0.0-0.19); PLATELET COUNT (AUTO) 416 K/uL (130-400); RED BLOOD CELL COUNT(AUTO) 3.39 MIL/uL (4.50-6.20); WHITE BLOOD COUNT (AUTO) 12.4 K/uL (4.8-10.8)
[2018-05-07 11:30] LABS: CREATININE 1.3 mg/dL (0.5-1.5)
[2018-05-07 11:33] LABS: ALBUMIN 2.6 g/dL (3.5-5.0); BILIRUBIN,TOTAL 0.3 mg/dL (0.2-1.0); TOTAL PROTEIN, SERUM 6.1 g/dL (6.0-8.3)
[2018-05-07] MEDS ORDERED: SODIUM CHLORIDE 0.9% 1000ML 1,000 ML IV ONE (12:01)
[2018-05-07 12:26] LABS: INR 1.02 (0.85-1.15); PARTIAL THROMBOPLASTIN TIME 24.7 SEC (26.3-35.5); PROTHROMBIN TIME 10.7 SEC (9.6-11.6)
[2018-05-07] MEDS ORDERED: IOHEXOL-350 75 ML VIAL IV ONE (13:00)
== END 2018-05-07 20:16 | disposition home or self-care (01) ==
LOC: EDH 10:40
DX: J90 Pleural effusion, not elsewhere classified (principal); E11.9 Type 2 diabetes mellitus without complications; I50.9 Heart failure, unspecified; I48.91 Unspecified atrial fibrillation; J44.9 Chronic obstructive pulmonary disease, unspecified
CPT/HCPCS: 36415; 71045; 71275; 80053; 82550; 84484; 85025; 85378; 85610; 85730; 93005 ×2; 93970; 99284; J7030; Q9967

== ENCOUNTER → 2018-05-10 | Outpatient (CLI) | payer OTHER, MEDICARE ==
[~2018-05-10] MED LIST changes: +LIDOCAINE HCL 2% JELLY 5 ML TP ONE
[2018-05-10 13:36] VITALS: BP 102/49
== END | disposition home or self-care (01) ==
LOC: WHH 08:00
PROVIDERS: ATTEND Podiatrist Foot & Ankle Surgery
DX: E11.621 Type 2 diabetes mellitus with foot ulcer (principal); L89.619 Pressure ulcer of right heel, unspecified stage; L97.512 Non-pressure chronic ulcer of other part of right foot with fat layer exposed; E11.21 Type 2 diabetes mellitus with diabetic nephropathy; E11.52 Type 2 diabetes mellitus with diabetic peripheral angiopathy with gangrene; E11.40 Type 2 diabetes mellitus with diabetic neuropathy, unspecified; E11.22 Type 2 diabetes mellitus with diabetic chronic kidney disease; I13.0 Hypertensive heart and chronic kidney disease with heart failure and stage 1 through stage 4 chronic kidney disease, or unspecified chronic kidney disease; N18.6 End stage renal disease; Z99.2 Dependence on renal dialysis; E78.5 Hyperlipidemia, unspecified; J44.9 Chronic obstructive pulmonary disease, unspecified; I48.2 Chronic atrial fibrillation; I50.22 Chronic systolic (congestive) heart failure; I96 Gangrene, not elsewhere classified; I25.2 Old myocardial infarction; E03.8 Other specified hypothyroidism; Z79.4 Long term (current) use of insulin; F17.200 Nicotine dependence, unspecified, uncomplicated; Z86.718 Personal history of other venous thrombosis and embolism; G47.30 Sleep apnea, unspecified; Z79.01 Long term (current) use of anticoagulants; Z89.431 Acquired absence of right foot; E66.9 Obesity, unspecified; G47.33 Obstructive sleep apnea (adult) (pediatric); Z95.818 Presence of other cardiac implants and grafts; Z79.899 Other long term (current) drug therapy
CPT/HCPCS: 11042; 11045

== ENCOUNTER → 2018-05-17 | Outpatient (CLI) | payer OTHER, MEDICARE ==
[2018-05-17 13:04] VITALS: BP 113/52
== END | disposition home or self-care (01) ==
LOC: WHH 08:30
PROVIDERS: ATTEND Podiatrist Foot & Ankle Surgery
DX: T87.89 Other complications of amputation stump (principal); E11.621 Type 2 diabetes mellitus with foot ulcer; L97.512 Non-pressure chronic ulcer of other part of right foot with fat layer exposed; L97.411 Non-pressure chronic ulcer of right heel and midfoot limited to breakdown of skin; L97.521 Non-pressure chronic ulcer of other part of left foot limited to breakdown of skin; E11.622 Type 2 diabetes mellitus with other skin ulcer; L97.311 Non-pressure chronic ulcer of right ankle limited to breakdown of skin; E11.52 Type 2 diabetes mellitus with diabetic peripheral angiopathy with gangrene; I96 Gangrene, not elsewhere classified; E11.22 Type 2 diabetes mellitus with diabetic chronic kidney disease; E11.40 Type 2 diabetes mellitus with diabetic neuropathy, unspecified; I13.2 Hypertensive heart and chronic kidney disease with heart failure and with stage 5 chronic kidney disease, or end stage renal disease; N18.6 End stage renal disease; I50.22 Chronic systolic (congestive) heart failure; E11.21 Type 2 diabetes mellitus with diabetic nephropathy; I48.2 Chronic atrial fibrillation; I25.2 Old myocardial infarction; J44.9 Chronic obstructive pulmonary disease, unspecified; E66.9 Obesity, unspecified; E03.8 Other specified hypothyroidism; E78.49 Other hyperlipidemia; G47.33 Obstructive sleep apnea (adult) (pediatric); Z99.2 Dependence on renal dialysis; Z79.4 Long term (current) use of insulin; Z79.899 Other long term (current) drug therapy; Z87.891 Personal history of nicotine dependence; Z79.84 Long term (current) use of oral hypoglycemic drugs; Z95.810 Presence of automatic (implantable) cardiac defibrillator; Z95.1 Presence of aortocoronary bypass graft; Y83.5 Amputation of limb(s) as the cause of abnormal reaction of the patient, or of later complication, without mention of misadventure at the time of the procedure
CPT/HCPCS: 11042; 11045

== ENCOUNTER → 2018-05-31 | Outpatient (CLI) | payer OTHER, MEDICARE ==
[~2018-05-31] MED LIST changes: +AMMO385C4 TP; +ASCO500C18 PO; +COLL30OI TP; +FINA5TAB41 PO; -LIDOCAINE HCL 2% JELLY 5 ML TP ONE; +METO2.5T2 PO; +MULT-1192 PO; +SILO8CAP2 PO; +SULF1TAB42 PO; +TIOT18CA3 IH
[2018-05-31 14:39] VITALS: BP 89/47
== END | disposition home or self-care (01) ==
LOC: WHH 08:30
PROVIDERS: ATTEND Podiatrist Foot & Ankle Surgery
DX: T87.89 Other complications of amputation stump (principal); E11.621 Type 2 diabetes mellitus with foot ulcer; L97.511 Non-pressure chronic ulcer of other part of right foot limited to breakdown of skin; L97.411 Non-pressure chronic ulcer of right heel and midfoot limited to breakdown of skin; L97.311 Non-pressure chronic ulcer of right ankle limited to breakdown of skin; I70.234 Atherosclerosis of native arteries of right leg with ulceration of heel and midfoot; I70.233 Atherosclerosis of native arteries of right leg with ulceration of ankle; I70.235 Atherosclerosis of native arteries of right leg with ulceration of other part of foot; E11.21 Type 2 diabetes mellitus with diabetic nephropathy; E11.52 Type 2 diabetes mellitus with diabetic peripheral angiopathy with gangrene; I96 Gangrene, not elsewhere classified; E11.22 Type 2 diabetes mellitus with diabetic chronic kidney disease; I13.2 Hypertensive heart and chronic kidney disease with heart failure and with stage 5 chronic kidney disease, or end stage renal disease; N18.6 End stage renal disease; I50.22 Chronic systolic (congestive) heart failure; I48.2 Chronic atrial fibrillation; I25.2 Old myocardial infarction; I25.10 Atherosclerotic heart disease of native coronary artery without angina pectoris; E78.49 Other hyperlipidemia; E03.8 Other specified hypothyroidism; E66.9 Obesity, unspecified; E46 Unspecified protein-calorie malnutrition; J44.9 Chronic obstructive pulmonary disease, unspecified; G47.33 Obstructive sleep apnea (adult) (pediatric); Z79.4 Long term (current) use of insulin; Z79.84 Long term (current) use of oral hypoglycemic drugs; Z79.899 Other long term (current) drug therapy; Z87.891 Personal history of nicotine dependence; Z95.1 Presence of aortocoronary bypass graft; Z95.810 Presence of automatic (implantable) cardiac defibrillator; Z79.01 Long term (current) use of anticoagulants; Y83.5 Amputation of limb(s) as the cause of abnormal reaction of the patient, or of later complication, without mention of misadventure at the time of the procedure
CPT/HCPCS: G0463